=== PATIENT | male | born 1960 | race Caucasian/White ===

== ENCOUNTER 2016-10-15 07:40 | Inpatient (IN) | payer OTHER ==
[~2016-10-15] VITALS: Ht 162.6 cm; Wt 65.3 kg
[~2016-10-15 07:40] MED LIST: CYCL10TA9 PO; NAPR-243 PO
--- OUTSIDE RECORDS SUMMARY | 2016-10-15 07:45 | XMS REPORT ---
Author SHAWNEE Jaimes [facility] eClinicalWorks Address Unknown Phone Unavailable Care Team Providers Care Visual Training Aide Name Role Phone SHAWNEE MANRIQUE CP Unavailable Allergies, Adverse Reactions, Alerts Substance Reaction Event Type N.K.D.A. Info Not Available Non Drug Allergy Problems Problem Type Condition Code Onset Dates Condition Status Problem Dehydration 276.51 Active Problem Screening examination for pulmonary tuberculosis V74.1 Active Problem Physical exam Z00.00 Active Assessment Physical exam Z00.00 Active Medications No Known Medications Procedures Procedure Coding System Code Date Office Visit, Est Pt., Level 4 CPT-4 34801 Jul 05, 2015 Vital Signs Date/Time: Jul 05, 2015 Temperature 98.2 F Weight 154 lbs Height 64 in BMI 26.43 Index Blood Pressure Diastolic 84 mmHg Blood Pressure Systolic 132 mmHg Cardiac Monitoring Heart Rate 80 bpm Results No Known Results Summary Purpose eClinicalWorks Submission
[2016-10-15 07:50] LABS: BASOPHILS % (AUTO) 0 % (0-10); EOSINOPHILS % (AUTO) 0 % (0-10); LYMPHOCYTES # (AUTO) 1.4 X 10^3 (1.0-4.0); LYMPHOCYTES % (AUTO) 13 % (12-44); MEAN CORPUSCULAR HEMOGLOBIN 31 PG (25-34); MEAN CORPUSCULAR HGB CONC 35 G/DL (32-36); MEAN CORPUSCULAR VOLUME 89 FL (80-99); MEAN PLATELET VOLUME 9.5 FL (7.4-10.4); MONOCYTES # (AUTO) 0.8 X 10^3 (0.0-1.0); MONOCYTES % (AUTO) 7 % (0-12); NEUTROPHILS # (AUTO) 8.6 X 10^3 (1.8-7.8); NEUTROPHILS % (AUTO) 80 % (42-75); PLATELET COUNT 272 10^3/uL (130-400); RED BLOOD COUNT 4.48 10^6/uL (4.35-5.85); RED CELL DISTRIBUTION WIDTH 12.2 % (10.0-14.5); WHITE BLOOD COUNT 10.8 10^3/uL (4.3-11.0)
[2016-10-15 07:59] LABS: INR 1.1 (0.8-1.4); PROTHROMBIN TIME PATIENT 13.7 SEC (12.2-14.7)
[2016-10-15] MEDS ORDERED: meTOproloL SUCCINATE 50 MG (TOPROL XL) TAB PO SCH (08:00)
[2016-10-15] MEDS ORDERED: ONDANSETRON 4 MG/2 ML (SDV) Z0FRAN IVP ONE (08:00)
[2016-10-15] MEDS ORDERED: ASPIRIN 81 MG CHEW (CHILDREN'S ASA) PO ONE (08:00)
[2016-10-15] MEDS ORDERED: morphine INJ 5 MG/ML 1 ML VIAL IVP ONE (08:00)
[2016-10-15] MEDS ORDERED: morphine INJ 10 MG/ML 1ML (SYR OR VIAL) IVP ONE (08:00)
[2016-10-15] MEDS ORDERED: NITROGLYCERIN 2% OINT 1 GM UNIT DOSE PACKET TOP ONE (08:00)
--- NOTE | 2016-10-15 08:02 | ED Chest Pain ---
General Chief Complaint: Chest Pain Stated Complaint: CP Nursing Triage Note: ARRIVED VIA EMS FROM WORK WITH COMPLAINTS OF CHEST PAIN AFTER WALKING TO WORK. STATES IT STARTED YESTERDAY AM OFF AND ON BUT WORSE THIS AM. DESCRIBES IT CRUSHING. PT RECIEVED ASA 324MG, X3 NITRO, ET ZOFRAN IN ROUTE TO HOSPITAL. Nursing Sepsis Screen: No Definite Risk Source: patient Exam Limitations: no limitations History of Present Illness Time seen by provider: 07:58 Initial Comments Patient complains of severe chest pain for the past hour onset after walking to work. He had similar pain yesterday that resolved. He is nauseated and has vomited. He is diaphoretic. He is mildly short of air. Allergies and Home Medications Allergies Coded Allergies: No Known Drug Allergies (Unverified , 05/10/12) Review of Systems Constitutional: diaphoresis Respiratory: No Symptoms Reported Cardiovascular: Chest Pain Gastrointestinal: Nausea Vomiting Musculoskeletal: no symptoms reported All Other Systems Reviewed Negative Unless Noted: Yes Past Bwsbkkt-Jhmlxh-Ihqoyx Hx Patient Social History Smoking Status: Never a Smoker Recent Foreign Travel: No Contact w/Someone Who Travel: No Recent Infectious Disease Expo: No Recent Hopitalizations: No Surgeries HX Surgeries: Yes (C5 WITH A BONE GRAFT INTO HIP AND PLACED IN NECK) Respiratory Hx Respiratory Disorders: No Cardiovascular Hx Cardiac Disorders: Yes Cardiac Disorders: Hypertension Neurological Hx Neurological Disorders: No Genitourinary Hx Genitourinary Disorders: No Gastrointestinal Hx Gastrointestinal Disorders: No Musculoskeletal Hx Musculoskeletal Disorders: No Endocrine Hx Endocrine Disorders: Yes (DIET CONTROLLED DIABETES) Cancer Hx Cancer: No Physical Exam Vital Signs Vital Sign - Last 12Hours 10/15/16 10/15/16 07:40 07:54 Temp 98.0 Pulse 104 Resp 18 B/P 116/86 Pulse Ox 96 O2 Delivery Room Air O2 Flow Rate 2 Capillary Refill : Less Than 3 Seconds General Appearance: WD/WN Anxious HEENT: PERRL/EOMI Pharynx Normal Neck: Supple Respiratory: Lungs Clear Normal Breath Sounds Cardiovascular: Regular Rate, Rhythm No Edema Gastrointestinal: Non Tender Soft Extremity: Normal Inspection Normal Range of Motion Neurologic/Psychiatric: Alert Oriented x3 No Motor/Sensory Deficits Skin: Cool Diaphoresis Pallor Progress/Results/Core Measures Results/Orders Lab Results Laboratory Tests Test 10/15/16 07:40 Range/Units Activated Partial Thromboplast Time < 20 L 24-35 SEC Alanine Aminotransferase (ALT/SGPT) 16 0-55 U/L Albumin 4.2 3.2-4.5 G/DL Alkaline Phosphatase 77 40-136 U/L Anion Gap 14 5-14 MMOL/L Aspartate Amino Transf (AST/SGOT) 36 H 5-34 U/L BUN/Creatinine Ratio 10 Basophils # (Auto) 0.0 0.0-0.1 10^3/uL Basophils (%) (Auto) 0 0-10 % Blood Urea Nitrogen 10 7-18 MG/DL Calcium Level 9.1 8.5-10.1 MG/DL Carbon Dioxide Level 23 21-32 MMOL/L Chloride Level 101 98-107 MMOL/L Creatinine 1.02 0.60-1.30 MG/DL Eosinophils # (Auto) 0.0 0.0-0.3 10^3/uL Eosinophils (%) (Auto) 0 0-10 % Estimat Glomerular Filtration Rate > 60 Glucose Level 436 *H 70-105 MG/DL Hematocrit 40 40-54 % Hemoglobin 13.8 13.3-17.7 G/DL INR Comment 1.1 0.8-1.4 Lipase 9 8-78 U/L Lymphocytes # (Auto) 1.4 1.0-4.0 X 10^3 Lymphocytes (%) (Auto) 13 12-44 % Magnesium Level 1.8 1.8-2.4 MG/DL Mean Corpuscular Hemoglobin 31 25-34 PG Mean Corpuscular Hemoglobin Concent 35 32-36 G/DL Mean Corpuscular Volume 89 80-99 FL Mean Platelet Volume 9.5 7.4-10.4 FL Monocytes # (Auto) 0.8 0.0-1.0 X 10^3 Monocytes (%) (Auto) 7 0-12 % Neutrophils # (Auto) 8.6 H 1.8-7.8 X 10^3 Neutrophils (%) (Auto) 80 H 42-75 % Platelet Count 272 130-400 10^3/uL Potassium Level 4.3 3.6-5.0 MMOL/L Prothrombin Time 13.7 12.2-14.7 SEC Red Blood Count 4.48 4.35-5.85 10^6/uL Red Cell Distribution Width 12.2 10.0-14.5 % Sodium Level 138 135-145 MMOL/L Total Bilirubin 1.0 0.1-1.0 MG/DL Total Protein 6.9 6.4-8.2 G/DL Troponin I 1.37 *H <0.30 NG/ML White Blood Count 10.8 4.3-11.0 10^3/uL Labs were reviewed My Orders Orders-CECILIA LORENZ MD Cbc With Automated Diff (10/15/16 07:45) Magnesium (10/15/16 07:45) Chest 1 View, Ap/Pa Only (10/15/16 07:45) Ekg Tracing (10/15/16 07:45) Cardiac Profile 1 (10/15/16 07:45) Comprehensive Metabolic Panel (10/15/16 07:45) Protime With Inr (10/15/16 07:45) Partial Thromboplastin Time (10/15/16 07:45) O2 (10/15/16 07:45) Monitor-Rhythm Ecg Trace Only (10/15/16 07:45) Saline Lock/Iv-Start (10/15/16 07:45) Aspirin Chewable Tablet (Baby Aspirin Ch (10/15/16 08:00) Metoprolol Succinate (Xl) Tab (Toprol Xl (10/15/16 08:00) Nitroglycerin Ointment (Nitrobid Ointme (10/15/16 08:00) Ondansetron Injection (Zofran Injectio (10/15/16 08:00) Morphine Injection (Morphine Injection (10/15/16 08:00) Lipase (10/15/16 07:57) Morphine Injection (Morphine Injection (10/15/16 08:00) Medications Given in ED Current Medications Medications Dose Ordered Sig/Sonny Route Start Time Stop Time Status Last Admin Dose Admin Morphine Sulfate 5 mg ONCE ONCE IVP 10/15/16 08:00 10/15/16 08:01 DC 10/15/16 08:01 5 MG Nitroglycerin 1 inch ONCE ONCE TOP 10/15/16 08:00 10/15/16 08:01 DC 10/15/16 08:04 1 INCH Ondansetron HCl 4 mg ONCE ONCE IVP 10/15/16 08:00 10/15/16 08:01 DC 10/15/16 08:03 4 MG Vital Signs/I&O Vital Sign - Last 12Hours 10/15/16 10/15/16 07:40 07:54 Temp 98.0 Pulse 104 Resp 18 B/P 116/86 Pulse Ox 96 O2 Delivery Room Air Nasal Cannula O2 Flow Rate 2 Blood Pressure Mean: 96 Progress Note : Time: 08:21 Progress Note Symptoms are improved after medications given. Vital signs are stable. to Audiovisual Production Specialist. ECG Initial ECG Rhythm: Normal Sinus Initial ECG Intervals: Normal Initial ECG Impression: Nonspecific Changes Comment There is ST depression laterally consistent with ischemia Departure Communication Time/Spoke to Consulting Physi: 08:00 Communication/Consulting Dr. Perez was consulted after reviewing patient's EKG. He arrived in the emergency department and evaluated the patient. Plan is to take patient to the cardiac catheterization lab. Impression Impression: Primary Impression: Chest pain Qualified Code: R07.9 - Chest pain, unspecified Additional Impression: Non-STEMI (non-ST elevated myocardial infarction) Disposition: 01 HOME, SELF-CARE Condition: Stable Decision to Admit Reason: Admit from ER (General) Decision to Admit/Date: Oct 15, 2016 Time/Decision to Admit Time: 08:21 Departure-Patient Inst. Referrals: NO,LOCAL PHYSICIAN (PCP/Family) Primary Care Physician CECILIA LORENZ MD Oct 15, 2016 08:02
[2016-10-15 08:08] LABS: PARTIAL THROMBOPLASTIN TIME < 20 SEC (24-35)
[2016-10-15 08:12] LABS: ALANINE AMINOTRANSFERASE 16 U/L (0-55); ALBUMIN 4.2 G/DL (3.2-4.5); ANION GAP 14 MMOL/L (5-14); ASPARTATE AMINO TRANSFERASE 36 U/L (5-34); BLOOD UREA NITROGEN 10 MG/DL (7-18); BUN/CREATININE RATIO 10; CALCIUM 9.1 MG/DL (8.5-10.1); CARBON DIOXIDE 23 MMOL/L (21-32); CHLORIDE 101 MMOL/L (98-107); CREATININE SERUM 1.02 MG/DL (0.60-1.30); GFR ESTIMATED > 60; MAGNESIUM 1.8 MG/DL (1.8-2.4); POTASSIUM 4.3 MMOL/L (3.6-5.0); SODIUM 138 MMOL/L (135-145); TOTAL PROTEIN 6.9 G/DL (6.4-8.2)
[2016-10-15 08:16] LABS: GLUCOSE 436 MG/DL (70-105)
[2016-10-15] MEDS ORDERED: NS IV 1000 ML 1,000 ML ONE (08:20)
[2016-10-15] MEDS ORDERED: LIDOCAINE 1% INJ 20 ML (XYLOCAINE) VIAL ONE ×2 (08:20→09:04)
[2016-10-15] MEDS ORDERED: HEParin (CATH LAB) 2,000 ML IV ONE (08:20)
[2016-10-15] MEDS ORDERED: fentaNYL INJECTION 100 MCG/2 ML AMP ONE (08:21)
[2016-10-15] MEDS ORDERED: MIDAZOLAM 5 MG/5 ML (VERSED) VIAL ONE (08:21)
[2016-10-15] MEDS ORDERED: HEParin 1000 UNIT/ML (10ML VIAL) FOR BOLUS ONE (08:21)
[2016-10-15] MEDS ORDERED: NITROGLYCERIN DRIP 25 MG/D5W 0 ML IV ONE (08:21)
[2016-10-15] MEDS ORDERED: EPTIFIBATIDE BOLUS 0 ML IV ONE (08:23)
[2016-10-15 08:26] VITALS: BP 102/77
--- NOTE | 2016-10-15 08:27 | Diagnostic Imaging Report ---
INDICATION: Chest pain. Frontal chest obtained at 8:13 a.m. and compared with 05/10/12. FINDINGS: Heart and mediastinal silhouette are normal in appearance. The lungs are clear. There is no pneumothorax or pleural fluid. IMPRESSION: Negative chest. Dictated by: Dictated on workstation # [id number]
--- NOTE | 2016-10-15 08:39 | Cardiac Procedure Note-CS/ASA ---
Pre-Procedure Note Pre-Op Procedure Note H&P Reviewed The H&P was reviewed, patient examined and no changes noted. Date H&P Reviewed: Oct 15, 2016 Time H&P Reviewed: 08:39 Conscious Sedation Pre-Proced Time Reviewed: 08:39 ASA Class: 3 Airway Mallampati Classification: (white earth appropriate class) I. II. III, IV Lungs Heart ASA score ASA 1: a normal healthy patient ASA 2: a patient with a mild systemic disease (mid diabetes, controlled hypertension, obesity x ASA 3: a patient with a severe systemic disease that limits activity (angina , COPD, prior Myocardial infarction) ASA 4: a patient with an incapacitating disease that is a constant threat to life (CHF, renal failure) ASA 5: a moribund patient not expected to survive 24 hrs. (ruptured aneurysm) ASA 6: a declared brain patient whose organs are being harvested. For emergent operations, add the letter E after the classification Grade 3 Sedation Plan: Analgesia, Amnesia, Plan communicated to team members, Discussed options with patient/fam, Discussed risks with patient/fam Note The patient is an appropriate candidate to undergo the planned procedure, sedation, and anesthesia. The patient immediately re-assessed prior to indication. GILL PETIT MD Oct 15, 2016 08:39
[2016-10-15] MEDS ORDERED: NS IV 1000 ML 1,000 ML IV SCH (08:45)
[2016-10-15] MEDS ORDERED: HEParin (CATH LAB) 1,000 ML IV ONE (08:46)
[2016-10-15] MEDS ORDERED: diphenhydrAMINE 50 MG/ML INJ (BENADRYL) ONE ×2 (09:02→09:04)
[2016-10-15] MEDS ORDERED: methylPREDNISolone 125 MG (Solu-MEDROL) VIAL ONE (09:02)
--- NOTE | 2016-10-15 09:11 | Cardiology History & Physical ---
HPI-Cardiology Cardiology Consultation Date of Consultation 10/15/16 Date of Admission Indication: chest pain HPI 56-year-old gentleman with history of hypertension, untreated. Has been having waxing and waning chest pain for the past few days, yesterday had an episode of chest pain resolved spontaneously, this morning after walking to work he developed sudden onset of chest pain came into the emergency room, noted to have ST depression with Q wave in the anterior leads. Had elevated troponin level. Decided to proceed with emergency cardiac catheterization PMH-Cardiology Surgeries HX Surgeries: Yes (C5 WITH A BONE GRAFT INTO HIP AND PLACED IN NECK) Respiratory Hx Respiratory Disorders: No Cardiovascular Hx Cardiovascular Disorders: Yes Neurological Hx Neurological Disorders: No Genitourinary Hx Genitourinary Disorders: No Gastrointestinal Hx Gastrointestinal Disorders: No Musculoskeletal Hx Musculoskeletal Disorders: No Endocrine Hx Endocrine Disorders: Yes (DIET CONTROLLED DIABETES) Cancer Hx Cancer: No Other PMHx Other PMHx: untreated hypertension Social History Patient Social History Employed/Student: employed Smoking: Never smoker Recent Foreign Travel: No Contact w/other who traveled: No Recent Infectious Disease Expo: No Family Hx Other Strong family history of heart disease ROS-Cardiology Review of Systems General: No Chills, Night Sweats Fatigue MalaiseNo Appetite HEENT: No Head Aches, No Visual Changes, No Eye Pain, No Ear Pain, No Dysphasia , No Sinus Congestion, No Post Nasal Drip, No Sore Throat Pulmonary: DyspneaNo Cough, No Pleuritic Chest Pain Cardiovascular: : Chest PainNo: Edema, Lt Headedness, Orthopnea, Palpitations, Paroxysmal Noc. Dyspnea Gastrointestinal: : Nausea: VomitingNo: Abdominal Pain, Constipation, Diarrhea , Hematochezia, Melena Genitourinary: No Dysuria, No Frequency, No Incontinence, No Hematuria, No Retention Musculoskeletal: No: arm pain, back pain, foot pain, hand pain, leg pain, neck pain, shoulder pain Neurological: : WeaknessNo: Change in speech, Confusion, Incoordination, Numbness, Seizures Home Medications & Allergies Allergies: Coded Allergies: No Known Drug Allergies (Unverified , 05/10/12) Home Medication List Reviewed: Yes Exam-Cardiology Vital Signs Vital Signs Date Time Temp Pulse Resp B/P Pulse Ox O2 Delivery O2 Flow Rate FiO2 10/15/16 08:26 93 18 98 10/15/16 07:54 Nasal Cannula 2 10/15/16 07:40 98.0 116/86 Exam General Appearance: Alert, Oriented X3, Cooperative, No Acute Distress HEENT: Atraumatic, PERRLA Respiratory: Clear to Auscultation, Normal Air Movement Cardiovascular: Regular Rate, Normal S1, Normal S2, No Murmurs, Gallops Abdominal: Normal Bowel Sounds, Soft, No Tenderness, No Hepatosplenomegaly, No Masses Extremities: No Clubbing, No Cyanosis, No Edema, Normal Pulses, No Tenderness/ Swelling Skin: No Rashes, No Breakdown, No Significant Lesion Neuro: Normal Gait, Normal Speech, Strength at 5/5 X4 Ext, Normal Tone, Sensation Intact Psych/Mental Status: Mental Status NL, Mood NL Results Labs Labs Laboratory Tests 10/15/16 07:40: Activated Partial Thromboplast Time < 20L, Alanine Aminotransferase (ALT/SGPT) 16, Albumin 4.2, Alkaline Phosphatase 77, Anion Gap 14, Aspartate Amino Transf ( AST/SGOT) 36H, BUN/Creatinine Ratio 10, Basophils # (Auto) 0.0, Basophils (%) ( Auto) 0, Blood Urea Nitrogen 10, Calcium Level 9.1, Carbon Dioxide Level 23, Chloride Level 101, Creatinine 1.02, Eosinophils # (Auto) 0.0, Eosinophils (%) ( Auto) 0, Estimat Glomerular Filtration Rate > 60, Glucose Level 436*H, Hematocrit 40, Hemoglobin 13.8, INR Comment 1.1, Lipase 9, Lymphocytes # (Auto) 1.4, Lymphocytes (%) (Auto) 13, Magnesium Level 1.8, Mean Corpuscular Hemoglobin 31, Mean Corpuscular Hemoglobin Concent 35, Mean Corpuscular Volume 89, Mean Platelet Volume 9.5, Monocytes # (Auto) 0.8, Monocytes (%) (Auto) 7, Neutrophils # (Auto) 8.6H, Neutrophils (%) (Auto) 80H, Platelet Count 272, Potassium Level 4.3, Prothrombin Time 13.7, Red Blood Count 4.48, Red Cell Distribution Width 12.2, Sodium Level 138, Total Bilirubin 1.0, Total Protein 6.9, Troponin I 1.37*H, White Blood Count 10.8 A/P-Cardiology Admission Diagnosis Non-ST elevation myocardial infarction Coronary artery disease Cardiogenic shock Hypotension Assessment/Plan Non-ST elevation myocardial infarction, emergency cardiac catheterization was planned, I carried out with it showing severe multivessel disease. Congestive heart failure, acute on chronic left ventricle systolic dysfunction, ejection fraction 30 percent, ischemic cardiomyopathy, intra-aortic balloon pump was placed, patient is hypotensive, cannot tolerate beta blockers, AUSTEN inhibitor and/or ARB. Intra-aortic balloon pump is in place. Hypotension, hypotensive shock, cardiogenic shock. Patient has history of hypertension. Questionable hyperlipidemia. Patient will be starting on statin after his bypass surgery Clinical Quality Measures AMI/AHF: ASA po Prior to arrival: Yes (324 MG) GILL PETIT MD Oct 15, 2016 09:11
[2016-10-15] MEDS ORDERED: HEParin DRIP 25000 UNIT/500ML 500 ML IV ONE (09:37)
[2016-10-15] MEDS ORDERED: NITROGLYCERIN DRIP 25 MG/D5W 250 ML IV ONE (09:37)
--- NOTE | 2016-10-16 11:26 | DISCHARGE SUMMARY ---
PROCEDURE PHYSICIAN: GILL PETIT DATE OF PROCEDURE: 10/15/2016 BRIEF HISTORY: Mr. Pena is a 56-year-old gentleman with history of untreated hypertension. He has been having waxing and waning chest pain for the past few days. He was admitted with acute chest pain. He had ST depression in anterolateral leads with Q waves in the anterior lateral leads. He was brought for emergency cardiac catheterization. PROCEDURE NOTE: After explaining the procedure to the patient, all pros and cons were explained. All questions were answered. The patient signed a consent, then he was placed on cardiac catheterization laboratory. The right groin was prepped in a sterile fashion. Local anesthesia of the right groin. 6-Niuean sheath was placed in the right femoral artery. Combination of right and left Aron catheter were used to access the right and left coronary system. Multiple views were obtained. Pigtail catheter advanced to the left ventricular cavity. Pressure was measured. Left ventriculogram was done. Pullback LV to aorta was done. The aortic arch angiogram was done. At that point I removed the pigtail catheter. I proceeded with exchanging the sheath then placed intra-aortic balloon pump. FINDINGS: HEMODYNAMICS: Please see separate sheet for hemodynamics. ANATOMY: 1. Left main coronary artery is bifurcating to left anterior descending and circumflex artery with no obstructive disease. 2. Left anterior descending artery is totally occluded at the midportion, immediately after the origin of the diagonal artery receiving collaterals from the right coronary artery and circumflex system. 3. Left circumflex artery is moderate in size subtotally occluded distally with severe stenosis. 4. Right coronary artery: The right coronary artery is dominant artery subtotally occluded with sluggish flow. Filling the right coronary artery and the LAD system. 5. Left ventriculogram: The left ventriculogram was done in the right anterior oblique position. The left ventricle is dilated, the anterior wall and apex are akinetic. Systolic function is reduced, diffuse left ventricular hypokinesia. Estimated ejection fraction is 25 to 30%. 6. Aortic arch angiogram: Aortic arch evaluation showed hypertensive changes, origin of the innominate artery, left carotid artery and left subclavian artery appeared normal. 7. Intra-aortic balloon pump was placed. No complication noted. CONCLUSION: 1. Severe multivessel disease with totally occluded LAD, getting collateral from a right coronary artery that has subtotal occlusion with sluggish flow. Severe stenosis at the distal circumflex artery. 2. Severely dilated left ventricle with akinesia of the anterior wall, true apex and inferoapical segment with diffuse left ventricular hypokinesia. Estimated ejection fraction 25 to 30%. 3. Successful intra-aortic balloon pump placement. DISCUSSION AND RECOMMENDATION: The patient appeared to be having old anterior wall infarction with severe disease at the right coronary artery. He received aspirin and heparin. Intra-aortic balloon pump was placed. I will arrange for transfer for emergency bypass surgery. FINAL DIAGNOSIS: 1. Coronary artery disease. 2. Non-ST elevation myocardial infarction. 3. Hypotensive shock. 4. Acute on chronic left ventricular systolic dysfunction, congestive heart failure, ischemic cardiomyopathy. 5. 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
--- OUTSIDE RECORDS SUMMARY | 2016-10-16 13:16 | XMS REPORT | Continuity of Care Document ---
Author Author [facility] Organization [facility] Address Unknown Phone Unavailable Care Team Providers Care Sash Assembler Name Role Phone NO, LOCAL PHYSICIAN PCP Unavailable Insurance Providers Payer Name Policy Number Subscriber Name Relationship Self Pay Que Pena 18 Self / Same As Patient Advance Directives Directive Response Recorded Date/Time Advance Directives No 05/10/12 8:14pm Chief Complaint and Reason for Visit Chief Complaint CP Reason for Visit Chest pain Non-STEMI (non-ST elevated myocardial infarction) Problems Active Problems Medical Problem Onset Date Status Chest pain Unknown Acute Non-STEMI (non-ST elevated myocardial infarction) Unknown Acute Medications Past Home Medications Medication Directions Ordered Status Cyclobenzaprine Hcl (Flexeril) 10 Mg Tablet, 1 Each Oral Q8hr Prn 05/10/12 Discontinued Naproxen 500 Mg Tablet, 1 Each Oral Three Times A Day And Prn 05/10/12 Discontinued Social History Social History Problem Response Recorded Date/Time Recent Foreign Travel No 10/15/2016 7:40am Recent Infectious Disease Exposure No 10/15/2016 7:40am Smoking Status Never a Smoker 10/15/2016 8:22am Recent Hopitalizations No 10/15/2016 7:50am Query Response Start Date Stop Date Smoking Status Never a Smoker Hospital Discharge Instructions No hospital discharge instructions. Plan of Care Discharge Date 10/15/16 9:25am Disposition IP-[facility] TO CODE Prescriptions See Medication Section Functional Status No functional status results. Allergies, Adverse Reactions, Alerts No known allergies. Immunizations No immunization records. Vital Signs Acute Vital Signs Vital Response Date/Time Temperature (Fahrenheit) 98 degrees F (97.6 - 99.5) 10/15/2016 7:40am Temperature (Calculated Celsius) 36.6696 degrees C (36.4 - 37.5) 10/15/2016 7 :40am Temperature Source Tympanic 10/15/2016 7:40am Pulse Rate (adult) 93 bpm (60 - 90) 10/15/2016 8:26am Respiratory Rate 18 bpm (12 - 24) 10/15/2016 8:26am O2 Sat by Pulse Oximetry 98 % (88 - 100) 10/15/2016 8:26am Blood Pressure 102/77 mm Hg 10/15/2016 8:26am Blood Pressure Mean 96 mm Hg 10/15/2016 7:40am Pain Numeric Pain Scale 5-Moderate Pain 10/15/2016 8:26am Height (Feet) 5 feet 10/15/2016 7:40am Height (Inches) 4 inches 10/15/2016 7:40am Height (Calculated Centimeters) 162.301546 cm 10/15/2016 7:40am Weight (Pounds) 144 pounds 10/15/2016 7:40am Weight (Calculated Kilograms) 65.033632 kilograms 10/15/2016 7:40am Capillary Refill Capillary Refill Less Than 3 Seconds 10/15/2016 7:40am Height 5 ft 4 in Weight 144 lb Body Mass Index 24.7 kg/m^2 Results Laboratory Results Test Name Result Units Flags Reference Collection Date/Time Result Date/ Time Comments White Blood Count 10.8 10^3/uL 4.3-11.0 10/15/2016 7:40am 10/15/2016 7: 51am Red Blood Count 4.48 10^6/uL 4.35-5.85 10/15/2016 7:40am 10/15/2016 7: 51am Hemoglobin 13.8 G/DL 13.3-17.7 10/15/2016 7:40am 10/15/2016 7:51am Hematocrit 40 % 40-54 10/15/2016 7:40am 10/15/2016 7:51am Mean Corpuscular Volume 89 FL 80-99 10/15/2016 7:40am 10/15/2016 7: 51am Mean Corpuscular Hemoglobin 31 PG 25-34 10/15/2016 7:4010/15/2016 7: 51am Mean Corpuscular Hemoglobin Concent 35 G/DL 32-36 10/15/2016 7:40am 04/2017 7:51am Red Cell Distribution Width 12.2 % 10.0-14.5 10/15/2016 7:40am 2016 7:51am Platelet Count 272 10^3/uL 130-400 10/15/2016 7:40am 10/15/2016 7:51am Mean Platelet Volume 9.5 FL 7.4-10.4 10/15/2016 7:40am 10/15/2016 7: 51am Neutrophils (%) (Auto) 80 % H 42-75 10/15/2016 7:40am 10/15/2016 7:51am Lymphocytes (%) (Auto) 13 % 12-44 10/15/2016 7:40am 10/15/2016 7:51am Monocytes (%) (Auto) 7 % 0-12 10/15/2016 7:40am 10/15/2016 7:51am Eosinophils (%) (Auto) 0 % 0-10 10/15/2016 7:40am 10/15/2016 7:51am Basophils (%) (Auto) 0 % 0-10 10/15/2016 7:40am 10/15/2016 7:51am Neutrophils # (Auto) 8.6 X 10^3 H 1.8-7.8 10/15/2016 7:40am 10/15/2016 7: 51am Lymphocytes # (Auto) 1.4 X 10^3 1.0-4.0 10/15/2016 7:40am 10/15/2016 7: 51am Monocytes # (Auto) 0.8 X 10^3 0.0-1.0 10/15/2016 7:40am 10/15/2016 7: 51am Eosinophils # (Auto) 0.0 10^3/uL 0.0-0.3 10/15/2016 7:40am 10/15/2016 7 :51am Basophils # (Auto) 0.0 10^3/uL 0.0-0.1 10/15/2016 7:40am 10/15/2016 7: 51am Prothrombin Time 13.7 SEC 12.2-14.7 10/15/2016 7:40am 10/15/2016 8: 09am INR Comment 1.1 0.8-1.4 10/15/2016 7:40am 10/15/2016 8:09am INTERPRETIVE DATA SUGGESTED THERAPEUTIC RANGE FOR INR'S: VENOUS THROMBOSIS, PULMONARY EMBOLISM, OR PREVENTION OF SYSTEMIC EMBOLISM (EG. IN ATRIAL FIBRILLATION): 2.0 - 3.0 MECHANICAL PROSTHETIC HEART VALVES: 2.5 - 3.5* *NOTE: INR'S UP TO 4.5 MAY BE NECESSARY IN SELECTED GROUPS OF HIGH RISK PATIENTS. [employer] CONSENSUS CONFERENCE ON ANTITHROMBOTIC THERAPY (2000). Activated Partial Thromboplast Time < 20 SEC L 24-35 10/15/2016 7:40am 8:09am Sodium Level 138 MMOL/L 135-145 10/15/2016 7:40am 10/15/2016 8:17am Potassium Level 4.3 MMOL/L 3.6-5.0 10/15/2016 7:40am 10/15/2016 8:17am Chloride Level 101 MMOL/L 98-107 10/15/2016 7:40am 10/15/2016 8:17am Carbon Dioxide Level 23 MMOL/L 21-32 10/15/2016 7:40am 10/15/2016 8: 17am Anion Gap 14 MMOL/L 5-14 10/15/2016 7:40am 10/15/2016 8:17am Blood Urea Nitrogen 10 MG/DL 7-18 10/15/2016 7:40am 10/15/2016 8:17am Creatinine 1.02 MG/DL 0.60-1.30 10/15/2016 7:40am 10/15/2016 8:17am BUN/Creatinine Ratio 10 10/15/2016 7:40am 10/15/2016 8:17am Estimat Glomerular Filtration Rate > 60 10/15/2016 7:40am 2016 8:17am GFR INTERPRETIVE DATA UNITS FOR ESTIMATED GFR (eGFR): mL/min/1.73 M2 REFERENCE RANGE FOR ESTIMATED GFR (eGFR) eGFR NORMAL eGFR >60 MODERATELY DECREASED eGFR 30-59 SEVERLY DECREASED eGFR 15-29 KIDNEY FAILURE <15 (OR DIALYSIS) Glucose Level 436 MG/DL CH 70-105 10/15/2016 7:40am 10/15/2016 8:17am RESULTS CALLED TO ALO AT 0816. RESULTS READ BACK: YES. Calcium Level 9.1 MG/DL 8.5-10.1 10/15/2016 7:40am 10/15/2016 8:17am Magnesium Level 1.8 MG/DL 1.8-2.4 10/15/2016 7:40am 10/15/2016 8:17am Total Bilirubin 1.0 MG/DL 0.1-1.0 10/15/2016 7:40am 10/15/2016 8:17am Alkaline Phosphatase 77 U/L 40-136 10/15/2016 7:40am 10/15/2016 8:17am Aspartate Amino Transf (AST/SGOT) 36 U/L H 5-34 10/15/2016 7:40am 2016 8:17am Alanine Aminotransferase (ALT/SGPT) 16 U/L 0-55 10/15/2016 7:40am 10/15 8:17am Troponin I 1.37 NG/ML CH <0.30 10/15/2016 7:40am 10/15/2016 8:17am RESULT CALLED TO ALO AT 0816. RESULTS READ BACK: YES. Total Protein 6.9 G/DL 6.4-8.2 10/15/2016 7:40am 10/15/2016 8:17am Albumin 4.2 G/DL 3.2-4.5 10/15/2016 7:40am 10/15/2016 8:17am Lipase 9 U/L 8-78 10/15/2016 7:40am 10/15/2016 8:14am Procedures Procedure Status Date Provider(s) Tracing only of electrocardiogram Completed 10/15/16 CECILIA LORENZ MD Encounters Encounter Location Arrival/Admit Date Discharge/Depart Date Attending Provider Discharged Inpatient [facility] 10/15/16 8:21am 9:25am GILL PETIT MD Recent Diagnosis Chest pain Non-STEMI (non-ST elevated myocardial infarction)
[2016-12-17] MEDS ORDERED: METO-270 PO (10:39)
[2016-12-17] MEDS ORDERED: SUCR1TAB PO (10:39)
[2016-12-17] MEDS ORDERED: PANT40TA3 PO (10:39)
[2016-12-18] MEDS ORDERED: METO-272 PO (10:55)
== END 2016-10-15 09:25 | disposition short-term general hospital (02) | DRG 270 ==
LOC: EDUNIT# 07:40 → ER 07:41 → CATH 08:21 → ICU 08:21
PROVIDERS: ADMIT Internal Medicine Cardiovascular Disease; ATTEND Internal Medicine Cardiovascular Disease
PROC: 4A023N7 Measurement of Cardiac Sampling and Pressure, Left Heart, Percutaneous Approach (ICD-10-PCS; principal; 2016-10-15)
PROC: B2151ZZ Fluoroscopy of Left Heart using Low Osmolar Contrast (ICD-10-PCS; 2016-10-15)
PROC: B2111ZZ Fluoroscopy of Multiple Coronary Arteries using Low Osmolar Contrast (ICD-10-PCS; 2016-10-15)
PROC: B3101ZZ Fluoroscopy of Thoracic Aorta using Low Osmolar Contrast (ICD-10-PCS; 2016-10-15)
PROC: 5A02210 Assistance with Cardiac Output using Balloon Pump, Continuous (ICD-10-PCS; 2016-10-15)
DX: I21.4 Non-ST elevation (NSTEMI) myocardial infarction (principal); I25.10 Atherosclerotic heart disease of native coronary artery without angina pectoris; R57.0 Cardiogenic shock; I50.23 Acute on chronic systolic (congestive) heart failure; I95.9 Hypotension, unspecified; I10 Essential (primary) hypertension; E78.5 Hyperlipidemia, unspecified; I25.5 Ischemic cardiomyopathy
CPT/HCPCS: 33967; 36221; 36415; 71010; 80053; 83690; 83735; 84484; 85025; 85610; 85730; 93005; 93041; 93458; 96374; 96375

== ENCOUNTER 2016-12-13 17:09 | Day surgery (SDC) | payer OTHER ==
[2016-12-13] VITALS (11 sets, daily range): BP systolic 109–150; BP diastolic 76–92
[~2016-12-13] VITALS: Ht 162.6 cm; Wt 59.6 kg
--- NOTE | 2016-12-13 17:22 | ED Chest Pain ---
General Chief Complaint: Chest Pain Stated Complaint: CP Source: patient Exam Limitations: no limitations History of Present Illness Time seen by provider: 17:14 Initial Comments Here by EMS with 2 days of intermittent right-sided chest pain that he describes as a moderate pressure that radiates to his right arm. Associated with nausea. He did have CABG 2 months ago. Denies breathing problems. States that he tried to work through it last night but it got worse or had to go home. He got a little better but worse today. Timing/Duration: getting worse, intermittent, 2-3 days Severity/Quality: moderate, pressure Location: central Radiation: arms (right) Activities at Onset: none Prior CP/Workup: cardiac cath, heart attack ASA po HEAD MILLER: Yes NTG SL HEAD MILLER: No Associated Symptoms: No abdominal pain, No back pain, No diaphoresis, fatigue, nausea/vomiting, No shortness of breath, No weakness Allergies and Home Medications Allergies Coded Allergies: No Known Drug Allergies (Unverified , 05/10/12) Review of Systems Constitutional: see HPI, No chills, No fever EENTM: No Symptoms Reported Respiratory: No Symptoms Reported Cardiovascular: Chest Pain, Denies Edema Gastrointestinal: Denies Abdominal Pain, Nausea, Vomiting Genitourinary: No Symptoms Reported Musculoskeletal: no symptoms reported Skin: no symptoms reported Psychiatric/Neurological: See HPI, Anxiety Endocrine: No Symptoms Reported Hematologic/Lymphatic: No Symptoms Reported All Other Systems Reviewed Negative Unless Noted: Yes Past Querdfm-Jwemwx-Kqxfmu Hx Patient Social History Alcohol Use: Denies Use Recreational Drug Use: No Smoking Status: Never a Smoker Recent Foreign Travel: No Contact w/Someone Who Travel: No Recent Hopitalizations: No Surgeries HX Surgeries: Yes (C5 WITH A BONE GRAFT INTO HIP AND PLACED IN NECK) Surgeries: CABG Respiratory Hx Respiratory Disorders: No Cardiovascular Hx Cardiac Disorders: Yes Cardiac Disorders: Hypertension Neurological Hx Neurological Disorders: No Genitourinary Hx Genitourinary Disorders: No Gastrointestinal Hx Gastrointestinal Disorders: No Musculoskeletal Hx Musculoskeletal Disorders: No Endocrine Hx Endocrine Disorders: Yes (DIET CONTROLLED DIABETES) Endocrine Disorders: Diabetes, Non-Insulin dep Cancer Hx Cancer: No Reviewed Nursing Assessment Reviewed/Agree w Nursing PMH: Yes Physical Exam Vital Signs Vital Sign - Last 12Hours 12/13/16 12/13/16 17:12 17:24 Pulse 106 Resp 17 B/P (MAP) 128/99 Pulse Ox 99 O2 Delivery Room Air O2 Flow Rate 2.00 Capillary Refill : Less Than 3 Seconds General Appearance: WD/WN, Anxious HEENT: PERRL/EOMI, Pharynx Normal Neck: Non Tender, Supple Respiratory: Lungs Clear, Normal Breath Sounds Cardiovascular: Regular Rate, Rhythm, No Murmur Gastrointestinal: Non Tender, Soft Extremity: Non Tender, No Calf Tenderness Neurologic/Psychiatric: Alert, Oriented x3 Skin: Normal Color, Warm/Dry Progress/Results/Core Measures Results/Orders Lab Results Laboratory Tests Test 12/13/16 17:30 Range/Units White Blood Count 9.5 4.3-11.0 10^3/uL Red Blood Count 4.76 4.35-5.85 10^6/uL Hemoglobin 13.8 13.3-17.7 G/DL Hematocrit 40 40-54 % Mean Corpuscular Volume 85 80-99 FL Mean Corpuscular Hemoglobin 29 25-34 PG Mean Corpuscular Hemoglobin Concent 34 32-36 G/DL Red Cell Distribution Width 13.8 10.0-14.5 % Platelet Count 360 130-400 10^3/uL Mean Platelet Volume 9.1 7.4-10.4 FL Neutrophils (%) (Auto) 74 42-75 % Lymphocytes (%) (Auto) 16 12-44 % Monocytes (%) (Auto) 9 0-12 % Eosinophils (%) (Auto) 0 0-10 % Basophils (%) (Auto) 0 0-10 % Neutrophils # (Auto) 7.0 1.8-7.8 X 10^3 Lymphocytes # (Auto) 1.5 1.0-4.0 X 10^3 Monocytes # (Auto) 0.9 0.0-1.0 X 10^3 Eosinophils # (Auto) 0.0 0.0-0.3 10^3/uL Basophils # (Auto) 0.0 0.0-0.1 10^3/uL Prothrombin Time 13.2 12.2-14.7 SEC INR Comment 1.0 0.8-1.4 Activated Partial Thromboplast Time 24 24-35 SEC D-Dimer < 0.27 0.00-0.49 UG/ML Sodium Level 134 L 135-145 MMOL/L Potassium Level 3.9 3.6-5.0 MMOL/L Chloride Level 100 98-107 MMOL/L Carbon Dioxide Level 20 L 21-32 MMOL/L Anion Gap 14 5-14 MMOL/L Blood Urea Nitrogen 12 7-18 MG/DL Creatinine 0.78 0.60-1.30 MG/DL Estimat Glomerular Filtration Rate > 60 BUN/Creatinine Ratio 15 Glucose Level 238 H 70-105 MG/DL Calcium Level 9.5 8.5-10.1 MG/DL Magnesium Level 1.9 1.8-2.4 MG/DL Total Bilirubin 0.9 0.1-1.0 MG/DL Aspartate Amino Transf (AST/SGOT) 17 5-34 U/L Alanine Aminotransferase (ALT/SGPT) 14 0-55 U/L Alkaline Phosphatase 63 40-136 U/L Myoglobin 49.2 10.0-92.0 NG/ML Troponin I < 0.30 <0.30 NG/ML Total Protein 7.8 6.4-8.2 G/DL Albumin 4.7 H 3.2-4.5 G/DL My Orders Orders - DOMINGUEZ ADAN MD Cbc With Automated Diff (12/13/16 17:17) Magnesium (12/13/16 17:17) Chest 1 View, Ap/Pa Only (12/13/16 17:17) Ekg Tracing (12/13/16 17:17) Cardiac Profile 1 (12/13/16 17:17) Comprehensive Metabolic Panel (12/13/16 17:17) Myoglobin Serum (12/13/16 17:17) Protime With Inr (12/13/16 17:17) Partial Thromboplastin Time (12/13/16 17:17) O2 (12/13/16 17:17) Monitor-Rhythm Ecg Trace Only (12/13/16 17:17) Lipid Panel (12/14/16 06:00) Saline Lock/Iv-Start (12/13/16 17:17) Fibrin Degradation Products (12/13/16 17:17) Rx-Nitroglycerin Sl Tabs (Rx-Nitrostat S (12/13/16 17:32) Medications Given in ED Current Medications Medications Dose Ordered Sig/Sonny Route Start Time Stop Time Status Last Admin Dose Admin Nitroglycerin 0.4 mg STK-MED ONCE SL 12/13/16 17:32 12/13/16 17:35 DC 12/13/16 17:36 0.4 MG Vital Signs/I&O Vital Sign - Last 12Hours 12/13/16 12/13/16 12/13/16 17:12 17:12 17:24 Pulse 106 Resp 17 B/P (MAP) 128/99 Pulse Ox 99 100 O2 Delivery Room Air Nasal Cannula O2 Flow Rate 2.00 Progress Note : Progress Note Seen and evaluated. IV by EMS. ASA 324 mg by mouth by EMS. Zofran 2 mg IV by EMS for nausea. Labs, EKG and chest x-ray ordered. Monitor patient. 1804: Patient did improve after 2 nitroglycerin and is currently resolved. He feels better. Discussed case with Dr. Coronado. We will admit patient for observation. Consult Dr. Perez. 180: Discussed with Dr. Perez and he agrees to consult. ECG Initial ECG Impression Date: Dec 13, 2016 Initial ECG Impression Time: 17:21 Initial ECG Rate: 103 Initial ECG Rhythm: S.Tach Comment Sinus tachycardia with extensive anterior infarct of undetermined age. This is a change from 10/15/16. He has had interval coronary artery bypass grafting due to NV previously. Diagnostic Imaging Diagonstic Imaging: Xray Plain Films/CT/US/NM/MRI: chest Comments [facility]IA [facility], [facility]. [place], [place] NAME: MITZI JACOBSON [facility] REC#: [id number] PT STATUS: REG ER : 1960 PHYSICIAN: DOMINGUEZ ADAN MD ADMIT DATE: 12/13/16/ER Draft Date of Exam:12/13/16 CHEST 1 VIEW, AP/PA ONLY INDICATION: Chest pain and lightheadedness. EXAM: Frontal chest obtained at 5:31 hours p.m. COMPARISON: 10/15/2016 FINDINGS: The patient has had a sternotomy. The heart is normal in size. The lungs are clear. There is no pneumothorax or pleural fluid. IMPRESSION: No acute process in the chest. Evidence of previous sternotomy. Dictated on workstation # [id number] Dict: 12/13/16 1741 Trans: 12/13/16 1745 [facility] [id number] Interpreted by: CARO HCIKS MD Electronically signed by: Departure Communication Time/Spoke to Admitting Phy: 18:04 Time/Spoke to Consulting Physi: 18:07 Impression Impression: Primary Impression: Chest pain Qualified Codes: R07.9 - Chest pain, unspecified Disposition: 09 ADMITTED INPATIENT Condition: Stable Decision to Admit Reason: Admit from ER (General) Decision to Admit/Date: Dec 13, 2016 Time/Decision to Admit Time: 18:04 Departure-Patient Inst. Referrals: NO,LOCAL PHYSICIAN (PCP/Family) Primary Care Physician DOMINGUEZ ADAN MD Dec 13, 2016 17:22
[2016-12-13] MEDS ORDERED: RX-NITROGLYCERIN 0.4 MG TAB BTL 25'S SL ONE (17:32)
[2016-12-13 17:37] LABS: BASOPHILS % (AUTO) 0 % (0-10); EOSINOPHILS % (AUTO) 0 % (0-10); LYMPHOCYTES # (AUTO) 1.5 X 10^3 (1.0-4.0); LYMPHOCYTES % (AUTO) 16 % (12-44); MEAN CORPUSCULAR HEMOGLOBIN 29 PG (25-34); MEAN CORPUSCULAR HGB CONC 34 G/DL (32-36); MEAN CORPUSCULAR VOLUME 85 FL (80-99); MEAN PLATELET VOLUME 9.1 FL (7.4-10.4); MONOCYTES # (AUTO) 0.9 X 10^3 (0.0-1.0); MONOCYTES % (AUTO) 9 % (0-12); NEUTROPHILS % (AUTO) 74 % (42-75); PLATELET COUNT 360 10^3/uL (130-400); RED BLOOD COUNT 4.76 10^6/uL (4.35-5.85); RED CELL DISTRIBUTION WIDTH 13.8 % (10.0-14.5); WHITE BLOOD COUNT 9.5 10^3/uL (4.3-11.0)
[2016-12-13 17:46] LABS: PROTHROMBIN TIME PATIENT 13.2 SEC (12.2-14.7)
--- NOTE | 2016-12-13 17:46 | Diagnostic Imaging Report ---
INDICATION: Chest pain and lightheadedness. EXAM: Frontal chest obtained at 5:31 hours p.m. COMPARISON: 10/15/2016 FINDINGS: The patient has had a sternotomy. The heart is normal in size. The lungs are clear. There is no pneumothorax or pleural fluid. IMPRESSION: No acute process in the chest. Evidence of previous sternotomy. Dictated by: Dictated on workstation # [id number]
[2016-12-13 17:58] LABS: ALANINE AMINOTRANSFERASE 14 U/L (0-55); ALBUMIN 4.7 G/DL (3.2-4.5); ANION GAP 14 MMOL/L (5-14); ASPARTATE AMINO TRANSFERASE 17 U/L (5-34); BILIRUBIN,TOTAL 0.9 MG/DL (0.1-1.0); BLOOD UREA NITROGEN 12 MG/DL (7-18); BUN/CREATININE RATIO 15; CALCIUM 9.5 MG/DL (8.5-10.1); CARBON DIOXIDE 20 MMOL/L (21-32); CHLORIDE 100 MMOL/L (98-107); CREATININE SERUM 0.78 MG/DL (0.60-1.30); GFR ESTIMATED > 60; GLUCOSE 238 MG/DL (70-105); MAGNESIUM 1.9 MG/DL (1.8-2.4); POTASSIUM 3.9 MMOL/L (3.6-5.0); SODIUM 134 MMOL/L (135-145); TOTAL PROTEIN 7.8 G/DL (6.4-8.2)
[2016-12-13 18:05] LABS: MYOGLOBIN SERUM 49.2 NG/ML (10.0-92.0)
[2016-12-13] MEDS ORDERED: ONDANSETRON 4 MG/2 ML (SDV) Z0FRAN ONE (18:46)
[2016-12-13] MEDS ORDERED: NS IV 1000 ML 1,000 ML ONE (20:17)
[2016-12-13] MEDS ORDERED: ZOLPIDEM 5 MG (AMBIEN) TAB ONE (22:02)
[2016-12-13] MEDS: ZOLPIDEM 5 MG (AMBIEN) TAB PO SCH (22:09)
[2016-12-13] MEDS ORDERED: SITA1TAB2 PO (22:14)
[2016-12-13] MEDS ORDERED: NITROGLYCERIN SUBLINGUAL 0.4 MG TAB (NITROSTAT) SL PRN (22:15)
[2016-12-13] MEDS ORDERED: morphine INJ 4 MG/ML 1 ML (VIAL/SYRINGE) IV PRN (22:15)
[2016-12-13] MEDS ORDERED: TRAM50TA2 PO (22:16)
[2016-12-13] MEDS ORDERED: PREG50CA2 PO (22:16)
[2016-12-13 23:45] LABS: CREATINE KINASE 50 U/L (30-200)
[2016-12-13 23:52] LABS: MYOGLOBIN SERUM 28.2 NG/ML (10.0-92.0); TROPONIN I < 0.30 NG/ML (<0.30)
[2016-12-14 00:03] VITALS: BP 108/64
[2016-12-14 04:00] VITALS: BP 120/79
[2016-12-14 04:55] LABS: BASOPHILS % (AUTO) 0 % (0-10); EOSINOPHILS # (AUTO) 0.1 10^3/uL (0.0-0.3); EOSINOPHILS % (AUTO) 1 % (0-10); LYMPHOCYTES # (AUTO) 2.3 X 10^3 (1.0-4.0); LYMPHOCYTES % (AUTO) 27 % (12-44); MEAN CORPUSCULAR HEMOGLOBIN 29 PG (25-34); MEAN CORPUSCULAR HGB CONC 33 G/DL (32-36); MEAN CORPUSCULAR VOLUME 86 FL (80-99); MEAN PLATELET VOLUME 8.9 FL (7.4-10.4); MONOCYTES # (AUTO) 0.9 X 10^3 (0.0-1.0); MONOCYTES % (AUTO) 11 % (0-12); NEUTROPHILS # (AUTO) 5.3 X 10^3 (1.8-7.8); NEUTROPHILS % (AUTO) 62 % (42-75); PLATELET COUNT 306 10^3/uL (130-400); RED BLOOD COUNT 4.19 10^6/uL (4.35-5.85); WHITE BLOOD COUNT 8.6 10^3/uL (4.3-11.0)
[2016-12-14 05:18] LABS: ALANINE AMINOTRANSFERASE 10 U/L (0-55); ALBUMIN 3.6 G/DL (3.2-4.5); ANION GAP 9 MMOL/L (5-14); ASPARTATE AMINO TRANSFERASE 12 U/L (5-34); BILIRUBIN,TOTAL 0.6 MG/DL (0.1-1.0); BLOOD UREA NITROGEN 7 MG/DL (7-18); BUN/CREATININE RATIO 10; CALCIUM 8.7 MG/DL (8.5-10.1); CARBON DIOXIDE 22 MMOL/L (21-32); CHLORIDE 108 MMOL/L (98-107); CHOLESTEROL 99 MG/DL (< 200); DIRECT LDL 46 MG/DL (1-129); GFR ESTIMATED > 60; GLUCOSE 170 MG/DL (70-105); SODIUM 139 MMOL/L (135-145); TRIGLYCERIDES 81 MG/DL (<150); VLDL CHOLESTEROL 16 MG/DL (5-40)
[2016-12-14] MEDS: inSUlin (REGULAR) HUMAN 1 UNIT/0.01 ML (CHARGE PER UNIT) SC SCH ×4 (05:44→20:59)
[2016-12-14 08:00] VITALS: BP 143/87
[2016-12-14] MEDS ORDERED: ASPIRIN E.C. 325 MG (ECOTRIN) TABLET PO SCH (09:00)
--- NOTE | 2016-12-14 09:37 | Consultation-Cardiology ---
HPI-Cardiology Cardiology Consultation Date of Consultation 12/14/16 Date of Admission Indication: chest pain HPI 56 years old gentleman with history of coronary artery disease, had acute myocardial infarction in October 2016, transferred to [facility] underwent CABG [address] Ham, did not follow-up with me. Was in his usual state of health until the last 2 days where he started having recurrent nausea and vomiting and chest pain described it as dull in nature on the right side of his chest. Responded to nitroglycerin, denied any palpitation, syncope or near syncopal episodes. Denied any claudications. Home Medications & Allergies Allergies: Coded Allergies: No Known Drug Allergies (Unverified , 05/10/12) Home Medication List Reviewed: Yes MLL-Qxlekg-Nrdobx Hx Patient Social History Marital Status: Alcohol Use: Denies Use Recreational Drug Use: No Smoking Status: Never a Smoker Recent Foreign Travel: No Recent Infectious Disease Expo: No Recent Hopitalizations: Yes (CABG in ) Physical Abuse Screen: No Sexual Abuse: No Immunizations Up To Date Tetanus Booster (TDap): More than 5yrs Date of Influenza Vaccine: Jun 07, 2016 Past Medical History past medical history as discussed below Family Medical History Family History: Diabetes mellitus 19 FATHER 19 MOTHER FH: CHF (congestive heart failure) 19 FATHER Constitutional: no symptoms reported, see HPI EENTM: no symptoms reported, see HPI Respiratory: see HPI, No cough, dyspnea on exertion, No hemoptysis, No orthopnea, No phlegm, No short of breath, No stridor, No wheezing, No other Cardiovascular: see HPI, chest pain, edema, Hx of Intervention, palpitations, syncope, vascular heart diseas, other Gastrointestinal: see HPI, nausea, vomiting Genitourinary: no symptoms reported, see HPI Musculoskeletal: no symptoms reported, see HPI Skin: no symptoms reported, see HPI Psychiatric/Neurological: No Symptoms Reported, See HPI Reviewed Test Results Reviewed Test Results Lab Laboratory Tests Test 12/13/16 17:30 12/13/16 21:53 12/13/16 23:25 12/14/16 04:42 Range/Units White Blood Count 9.5 8.6 4.3-11.0 10^3/uL Red Blood Count 4.76 4.19 L 4.35-5.85 10^6/uL Hemoglobin 13.8 12.1 L 13.3-17.7 G/DL Hematocrit 40 36 L 40-54 % Mean Corpuscular Volume 85 86 80-99 FL Mean Corpuscular Hemoglobin 29 29 25-34 PG Mean Corpuscular Hemoglobin Concent 34 33 32-36 G/DL Red Cell Distribution Width 13.8 14.0 10.0-14.5 % Platelet Count 360 306 130-400 10^3/uL Mean Platelet Volume 9.1 8.9 7.4-10.4 FL Neutrophils (%) (Auto) 74 62 42-75 % Lymphocytes (%) (Auto) 16 27 12-44 % Monocytes (%) (Auto) 9 11 0-12 % Eosinophils (%) (Auto) 0 1 0-10 % Basophils (%) (Auto) 0 0 0-10 % Neutrophils # (Auto) 7.0 5.3 1.8-7.8 X 10^3 Lymphocytes # (Auto) 1.5 2.3 1.0-4.0 X 10^3 Monocytes # (Auto) 0.9 0.9 0.0-1.0 X 10^3 Eosinophils # (Auto) 0.0 0.1 0.0-0.3 10^3/uL Basophils # (Auto) 0.0 0.0 0.0-0.1 10^3/uL Prothrombin Time 13.2 12.2-14.7 SEC INR Comment 1.0 0.8-1.4 Activated Partial Thromboplast Time 24 24-35 SEC D-Dimer < 0.27 0.00-0.49 UG/ML Sodium Level 134 L 139 135-145 MMOL/L Potassium Level 3.9 4.0 3.6-5.0 MMOL/L Chloride Level 100 108 H 98-107 MMOL/L Carbon Dioxide Level 20 L 22 21-32 MMOL/L Anion Gap 14 9 5-14 MMOL/L Blood Urea Nitrogen 12 7 7-18 MG/DL Creatinine 0.78 0.70 0.60-1.30 MG/DL Estimat Glomerular Filtration Rate > 60 > 60 BUN/Creatinine Ratio 15 10 Glucose Level 238 H 170 H 70-105 MG/DL Calcium Level 9.5 8.7 8.5-10.1 MG/DL Magnesium Level 1.9 1.8-2.4 MG/DL Total Bilirubin 0.9 0.6 0.1-1.0 MG/DL Aspartate Amino Transf (AST/SGOT) 17 12 5-34 U/L Alanine Aminotransferase (ALT/SGPT) 14 10 0-55 U/L Alkaline Phosphatase 63 46 40-136 U/L Myoglobin 49.2 28.2 10.0-92.0 NG/ML Troponin I < 0.30 < 0.30 <0.30 NG/ML Total Protein 7.8 6.0 L 6.4-8.2 G/DL Albumin 4.7 H 3.6 3.2-4.5 G/DL Glucometer 211 H 70-110 MG/DL Total Creatine Kinase 50 30-200 U/L Triglycerides Level 81 <150 MG/DL Cholesterol Level 99 < 200 MG/DL LDL Cholesterol Direct 46 1-129 MG/DL VLDL Cholesterol 16 5-40 MG/DL HDL Cholesterol 36 L 40-60 MG/DL Test 12/14/16 09:13 Range/Units Glucometer 265 H 70-110 MG/DL Physical Exam Vital Signs Vital Sign - Last 12Hours 12/13/16 12/13/16 17:12 17:24 Pulse 106 Resp 17 B/P (MAP) 128/99 Pulse Ox 99 O2 Delivery Room Air O2 Flow Rate 2.00 Capillary Refill : Less Than 3 Seconds General Appearance: WD/WN, Mild Distress Eyes: Bilateral Eye EOMI, Bilateral Eye Normal Inspection, Bilateral Eye PERRL HEENT: PERRL/EOMI, TMs Normal, Normal ENT Inspection, Pharynx Normal Neck: Full Range of Motion, Normal Inspection, Non Tender, Supple Respiratory: Chest Non Tender, Lungs Clear, Normal Breath Sounds, No Accessory Muscle Use, No Respiratory Distress Cardiovascular: Regular Rate, Rhythm, No Edema, No Gallop, No JVD, No Murmur, Normal Peripheral Pulses Gastrointestinal: Normal Bowel Sounds, No Organomegaly, No Pulsatile Mass, Non Tender, Soft Back: Normal Inspection, No CVA Tenderness, No Vertebral Tenderness Extremity: Normal Capillary Refill, Normal Inspection, Normal Range of Motion, Non Tender, No Calf Tenderness, No Pedal Edema Neurologic/Psychiatric: Alert, Oriented x3, No Motor/Sensory Deficits, Normal Mood/Affect Skin: Normal Color, Warm/Dry Lymphatic: No Adenopathy A/P-Cardiology Admission Diagnosis Anterior chest wall pain Coronary artery disease Congestive heart failure Hypertension Assessment/Plan Chest pain, nonspecific etiology, atypical in presentation, recent myocardial infarction and bypass surgery. Planning to evaluate Lexiscan stress test. Coronary artery disease, status post acute myocardial infarction in October 2016, had CABG [address] Ham using MIRANDA to LAD, vein graft to diagonal artery, vein graft to posterior marginal and vein graft to the right PDA. EKG showed QS in the anterior leads. Planning to proceed with Lexiscan stress test. Congestive heart failure, chronic left ventricular systolic dysfunction, ischemic in nature, ejection fraction 30 percent during cardiac catheterization in October, I will reevaluate 2-D echocardiogram. Hypertension, monitor blood pressure Hyperlipidemia. Evaluate lipid profile, reporting that he has been taking Lipitor. I'll obtain his accurate medication list Diabetes mellitus, followed and managed by primary care physician. Clinical Quality Measures AMI/AHF: ASA po Prior to arrival: Yes DVT/VTE Risk/Contraindication: Risk Factor Score Per Nursin RFS Level Per Nursing on Admit: 2=Moderate GILL PETIT MD Dec 14, 2016 09:37
[2016-12-14] MEDS ORDERED: lisINopril 5 MG (PRINIVIL) TABLET PO NR (09:45)
[2016-12-14] MEDS ORDERED: PANTOPRAZOLE 40 MG (PROTONIX) TAB PO NR (09:45)
[2016-12-14 11:27] VITALS: BP 133/88
[2016-12-14] MEDS ORDERED: ATOR80TA64 PO (13:00)
[2016-12-14] MEDS ORDERED: INSU300I SQ (13:00)
[2016-12-14] MEDS ORDERED: CARV12.53 PO (13:00)
[2016-12-14] MEDS ORDERED: NITR12SP5 TL (13:00)
[2016-12-14] MEDS ORDERED: CLOP75TA28 PO (13:00)
[2016-12-14] MEDS ORDERED: ASPI-586 PO (13:02)
[2016-12-14] MEDS ORDERED: LISI-556 PO (13:02)
--- NOTE | 2016-12-14 13:09 | History & Physicial (CHS) ---
HPI History of Present Illness: Patient came to ER after initially starting with nausea and vomiting overnight. He stayed home from work on Thursday and continued to hav vomiting and inability to keep down even water. Thursday afternoon he started to note some right sided chest pain and called EMS. He had a recent CABG. He is feeling somewhat better today, had some cream of wheat for breakfast which has stayed down. He denies fever, diarrhea. He did have some abdominal cramping along with the noted issues. Attending Physician Tory Coronado MD PCP [place],[facility] Date of Admission Dec 13, 2016 at 18:14 Home Medications Home Medications Reviewed patient Home Medication Reconciliation Form Allergies Coded Allergies: No Known Drug Allergies (Unverified , 05/10/12) FIO-Daftho-Iuqkxf Hx Patient Social History Marrital Status: Alcohol Use: Denies Use Recreational Drug Use: No Smoking Status: Never a Smoker Recent Foreign Travel: No Contact w/other who traveled: No Recent Hopitalizations: Yes (CABG in ) Recent Infectious Disease Expo: No Physical Abuse Screen: No Sexual Abuse: No Immunizations Up To Date Tetanus Booster (TDap): More than 5yrs Date of Influenza Vaccine: Jun 07, 2016 Past Medical History PMHx: DMII CAD s/p CABG HLD PSurgHx: CABG Laminectomy and discectomy Family Medical History Significant Family History: Heart Disease, CAD Over 55 Years Old, Diabetes Review of Systems (CHC) Constitutional: dizziness, No fever Respiratory: No cough, No short of breath Cardiovascular: see HPI Gastrointestinal: No abdominal pain, No diarrhea, nausea, vomiting Genitourinary: No dysuria Musculoskeletal: No joint pain Skin: No rash Reviewed Test Results Reviewed Test Results Lab Laboratory Tests Test 12/13/16 17:30 12/13/16 21:53 12/13/16 23:25 12/14/16 04:42 Range/Units White Blood Count 9.5 8.6 4.3-11.0 10^3/uL Red Blood Count 4.76 4.19 L 4.35-5.85 10^6/uL Hemoglobin 13.8 12.1 L 13.3-17.7 G/DL Hematocrit 40 36 L 40-54 % Mean Corpuscular Volume 85 86 80-99 FL Mean Corpuscular Hemoglobin 29 29 25-34 PG Mean Corpuscular Hemoglobin Concent 34 33 32-36 G/DL Red Cell Distribution Width 13.8 14.0 10.0-14.5 % Platelet Count 360 306 130-400 10^3/uL Mean Platelet Volume 9.1 8.9 7.4-10.4 FL Neutrophils (%) (Auto) 74 62 42-75 % Lymphocytes (%) (Auto) 16 27 12-44 % Monocytes (%) (Auto) 9 11 0-12 % Eosinophils (%) (Auto) 0 1 0-10 % Basophils (%) (Auto) 0 0 0-10 % Neutrophils # (Auto) 7.0 5.3 1.8-7.8 X 10^3 Lymphocytes # (Auto) 1.5 2.3 1.0-4.0 X 10^3 Monocytes # (Auto) 0.9 0.9 0.0-1.0 X 10^3 Eosinophils # (Auto) 0.0 0.1 0.0-0.3 10^3/uL Basophils # (Auto) 0.0 0.0 0.0-0.1 10^3/uL Prothrombin Time 13.2 12.2-14.7 SEC INR Comment 1.0 0.8-1.4 Activated Partial Thromboplast Time 24 24-35 SEC D-Dimer < 0.27 0.00-0.49 UG/ML Sodium Level 134 L 139 135-145 MMOL/L Potassium Level 3.9 4.0 3.6-5.0 MMOL/L Chloride Level 100 108 H 98-107 MMOL/L Carbon Dioxide Level 20 L 22 21-32 MMOL/L Anion Gap 14 9 5-14 MMOL/L Blood Urea Nitrogen 12 7 7-18 MG/DL Creatinine 0.78 0.70 0.60-1.30 MG/DL Estimat Glomerular Filtration Rate > 60 > 60 BUN/Creatinine Ratio 15 10 Glucose Level 238 H 170 H 70-105 MG/DL Calcium Level 9.5 8.7 8.5-10.1 MG/DL Magnesium Level 1.9 1.8-2.4 MG/DL Total Bilirubin 0.9 0.6 0.1-1.0 MG/DL Aspartate Amino Transf (AST/SGOT) 17 12 5-34 U/L Alanine Aminotransferase (ALT/SGPT) 14 10 0-55 U/L Alkaline Phosphatase 63 46 40-136 U/L Myoglobin 49.2 28.2 10.0-92.0 NG/ML Troponin I < 0.30 < 0.30 <0.30 NG/ML Total Protein 7.8 6.0 L 6.4-8.2 G/DL Albumin 4.7 H 3.6 3.2-4.5 G/DL Glucometer 211 H 70-110 MG/DL Total Creatine Kinase 50 30-200 U/L Triglycerides Level 81 <150 MG/DL Cholesterol Level 99 < 200 MG/DL LDL Cholesterol Direct 46 1-129 MG/DL VLDL Cholesterol 16 5-40 MG/DL HDL Cholesterol 36 L 40-60 MG/DL Test 12/14/16 09:13 Range/Units Glucometer 265 H 70-110 MG/DL Radiology CXR 12/13: no acute changes Physical Exam-(CHC) Physical Exam Vital Signs VS - Last 72 Hours, by Label 12/13/16 12/13/16 12/13/16 12/13/16 17:12 17:12 17:24 18:39 Pulse 106 98 Resp 17 18 B/P (MAP) 128/99 132/92 Pulse Ox 99 100 100 O2 Delivery Room Air Nasal Cannula Nasal Cannula O2 Flow Rate 2.00 2.00 12/13/16 12/13/16 12/13/16 12/13/16 18:41 18:50 19:22 19:35 Temp 99.0 Pulse 106 104 99 94 Resp 20 20 18 20 B/P (MAP) 123/89 109/ 135/84 Pulse Ox 100 100 100 99 O2 Delivery Nasal Cannula Nasal Cannula Room Air O2 Flow Rate 2.00 2.00 12/13/16 12/13/16 12/13/16 12/13/16 19:35 19:50 20:10 20:27 Pulse 93 101 95 Resp 20 20 20 B/P (MAP) 125/76 148/80 133/82 Pulse Ox 99 99 100 100 O2 Delivery Room Air Room Air Room Air O2 Flow Rate 2.00 12/13/16 12/13/16 12/13/16 12/13/16 20:40 20:42 20:57 22:00 Pulse 95 96 97 105 Resp 20 20 18 B/P (MAP) 134/82 150/85 131/81 Pulse Ox 100 100 99 O2 Delivery Room Air Room Air Room Air 4/04/2312/14/16 12/14/16 12/14/16 23:00 00:03 01:00 04:00 Temp 97.4 98.2 Pulse 95 104 103 95 Resp 18 18 16 B/P (MAP) 126/79 108/64 120/79 Pulse Ox 100 98 100 O2 Delivery Room Air Nasal Cannula Nasal Cannula O2 Flow Rate 2.00 2.00 12/14/16 12/14/16 12/14/16 12/14/16 07:00 08:00 08:00 11:27 Temp 96.0 95.0 Pulse 104 101 100 Resp 18 22 B/P (MAP) 143/87 133/88 Pulse Ox 99 99 99 O2 Delivery Nasal Cannula Nasal Cannula Nasal Cannula O2 Flow Rate 1.50 2.00 1.50 Capillary Refill : Less Than 3 Seconds General Appearance: WD/WN, no apparent distress Respiratory: lungs clear, normal breath sounds Cardiovascular: regular rate, rhythm, no murmur Gastrointestinal: normal bowel sounds, non tender, soft Extremities: no pedal edema Neurologic/Psychiatric: alert, normal mood/affect, oriented x 3 Skin: normal color, warm/dry Assessment/Plan Assessment/Plan Admission Dx 1. Nausea and vomiting 2. Chest pain with recent CABG 3. DMII Plan 1. Nausea and vomiting- possible viral gastritis -IVF, ondansetron, CLD advance as tolerated 2. Chest pain with recent CABG- Cardiology consulted, troponins negative, no acute EKG changes -Metoprolol XL started by Dr. Perez, will hold home carvedilol, continue home lisinopril, clopidogrel, aspirin and atorvastatin -Stress test tomorrow per Dr. Perez 3. DMII- resume home Janumet and Toujeo -SSI as needed 4. DVT ppx- SCDS, enoxaparin Diagnosis/Problems: Clinical Quality Measures AMI/AHF: ASA po Prior to arrival: Yes DVT/VTE Risk/Contraindication: Risk Factor Score Per Nursin RFS Level Per Nursing on Admit: 2=Moderate Copy Copies To 1: EILEEN Posada BETHANY N MD Dec 14, 2016 13:09
[2016-12-14] MEDS: ENOXAPARIN 40 MG/0.4 ML (LOVENOX) SYR SC SCH (15:02)
[2016-12-14 16:00] VITALS: BP 106/67
[2016-12-14] MEDS: sitaGLIPtin 50 MG (JANUVIA) TAB PO SCH (17:22)
[2016-12-14] MEDS: metFORMIN 500 MG (GLUCOPHAGE) TAB PO SCH (17:22)
[2016-12-14 20:32] VITALS: BP 115/72
[2016-12-14] MEDS: PREGABALIN 50 MG (LYRICA) CAP PO SCH (20:44)
[2016-12-14] MEDS: ZOLPIDEM 5 MG (AMBIEN) TAB PO SCH (20:59)
[2016-12-14] MEDS ORDERED: NON-FORMULARY MEDICATION 1 EA EA (Sitagliptin Phos/Metformin HCl (Janumet 50-500 mg Tablet PO SCH (21:00)
[2016-12-14] MEDS ORDERED: ACETAMINOPHEN 500 MG TAB (TYLENOL) PO PRN (21:00)
[2016-12-15] VITALS (19 sets, daily range): BP systolic 85–146; BP diastolic 60–96
[2016-12-15 05:24] LABS: MEAN PLATELET VOLUME 9.1 FL (7.4-10.4); RED BLOOD COUNT 4.19 10^6/uL (4.35-5.85); WHITE BLOOD COUNT 8.6 10^3/uL (4.3-11.0)
[2016-12-15 05:46] LABS: ALANINE AMINOTRANSFERASE 11 U/L (0-55); ALBUMIN 3.5 G/DL (3.2-4.5); ANION GAP 9 MMOL/L (5-14); ASPARTATE AMINO TRANSFERASE 14 U/L (5-34); BILIRUBIN,TOTAL 0.5 MG/DL (0.1-1.0); BLOOD UREA NITROGEN 7 MG/DL (7-18); BUN/CREATININE RATIO 10; CALCIUM 8.7 MG/DL (8.5-10.1); CARBON DIOXIDE 23 MMOL/L (21-32); CHLORIDE 106 MMOL/L (98-107); CHOLESTEROL 95 MG/DL (< 200); CREATININE SERUM 0.71 MG/DL (0.60-1.30); DIRECT LDL 43 MG/DL (1-129); GFR ESTIMATED > 60; GLUCOSE 153 MG/DL (70-105); POTASSIUM 3.7 MMOL/L (3.6-5.0); SODIUM 138 MMOL/L (135-145); TOTAL PROTEIN 5.8 G/DL (6.4-8.2); TRIGLYCERIDES 98 MG/DL (<150); VLDL CHOLESTEROL 20 MG/DL (5-40)
[2016-12-15] MEDS: inSUlin (REGULAR) HUMAN 1 UNIT/0.01 ML (CHARGE PER UNIT) SC SCH ×4 (06:00→20:28)
[2016-12-15] MEDS: metFORMIN 500 MG (GLUCOPHAGE) TAB PO SCH (06:24)
[2016-12-15] MEDS: PANTOPRAZOLE 40 MG (PROTONIX) TAB PO SCH (06:24)
[2016-12-15] MEDS: sitaGLIPtin 50 MG (JANUVIA) TAB PO SCH (06:25)
[2016-12-15] MEDS ORDERED: CATHETER FLUSH 10 ML SYR IV PRN (07:30)
[2016-12-15] MEDS ORDERED: REGADENOSON 0.4 MG/5 ML SYR (LEXISCAN) IV ONE ×2 (09:00→09:15)
--- NOTE | 2016-12-15 09:39 | Cardiology Progress Note ---
Subjective Subjective/Events-last exam Patient in the heart center for stress test. Denies any active CP. Review of Systems General: No Night Sweats, No Fatigue, No Malaise HEENT: No Visual Changes, No Dysphasia, No Sore Throat Pulmonary: No Dyspnea, No Cough Cardiovascular: No: Chest Pain, Orthopnea, Palpitations Gastrointestinal: No: Abdominal Pain, Nausea, Vomiting Genitourinary: No Dysuria, No Frequency Musculoskeletal: No: back pain, neck pain Neurological: No: Change in speech, Numbness, Weakness Objective-Cardiology Exam Last Set of Vital Signs Vital Signs 12/14/16 12/15/16 12/15/16 20:32 03:21 09:11 Temp 96.8 Pulse 114 Resp 18 B/P (MAP) 112/74 Pulse Ox 98 O2 Delivery Room Air O2 Flow Rate 2.00 Capillary Refill : Less Than 3 Seconds I&O Intake and Output 12/15/16 00:00 Intake Total 2200 ml Output Total 3925 ml Balance -1725 ml Intake Oral 2200 ml Output Urine Total 3925 ml General: Alert, Oriented X3, Cooperative HEENT: Atraumatic, PERRLA Neck: Supple, No JVD, No Thyromegaly Lungs: Clear to Auscultation, Normal Air Movement Heart: Regular Rate, Normal S1, Normal S2, No Murmurs Abdomen: Normal Bowel Sounds, Soft, No Tenderness, No Hepatosplenomegaly, No Masses Extremities: No Clubbing, No Cyanosis, No Edema, Normal Pulses, No Tenderness/ Swelling Skin: No Rashes, No Breakdown, No Significant Lesion Neuro: Normal Gait, Normal Speech, Strength at 5/5 X4 Ext, Normal Tone, Sensation Intact Psych/Mental Status: Mental Status NL, Mood NL Results Lab Laboratory Tests 12/15/16 04:42 A/P-Cardiology Admission Diagnosis Anterior chest wall pain Coronary artery disease Congestive heart failure Hypertension Assessment/Plan Chest pain, nonspecific etiology, atypical in presentation, recent myocardial infarction and bypass surgery.Undegoing Lexiscan stress test this morning. Coronary artery disease, status post acute myocardial infarction in October 2016, had CABG [address] Ham using MIRANDA to LAD, vein graft to diagonal artery, vein graft to posterior marginal and vein graft to the right PDA. EKG showed QS in the anterior leads. Stress test results pending. Congestive heart failure, chronic left ventricular systolic dysfunction, ischemic in nature, ejection fraction 30 percent during cardiac catheterization in October, I will reevaluate 2-D echocardiogram. Hypertension, monitor blood pressure Hyperlipidemia. Evaluate lipid profile, reporting that he has been taking Lipitor. Diabetes mellitus, followed and managed by primary care physician. Clinical Quality Measures AMI/AHF: ASA po Prior to arrival: Yes DVT/VTE Risk/Contraindication: Risk Factor Score Per Nursin RFS Level Per Nursing on Admit: 2=Moderate PHU BELTRE Dec 15, 2016 09:39
[2016-12-15] MEDS: lisINopril 5 MG (PRINIVIL) TABLET PO SCH (10:30)
[2016-12-15] MEDS: PREGABALIN 50 MG (LYRICA) CAP PO SCH ×2 (10:30→20:25)
[2016-12-15] MEDS: ONDANSETRON 4 MG/2 ML (SDV) Z0FRAN IV PRN ×2 (10:42→13:15)
[2016-12-15] MEDS ORDERED: PANTOPRAZOLE 40 MG/10 ML (PROTONIX) VIAL ONE (11:04)
[2016-12-15] MEDS ORDERED: LIDOCAINE 1% INJ 20 ML (XYLOCAINE) VIAL ONE (11:06)
[2016-12-15] MEDS ORDERED: MIDAZOLAM 5 MG/5 ML (VERSED) VIAL ONE (11:06)
[2016-12-15] MEDS ORDERED: NS IV 1000 ML 1,000 ML ONE (11:06)
[2016-12-15] MEDS ORDERED: fentaNYL INJECTION 100 MCG/2 ML AMP ONE (11:06)
[2016-12-15] MEDS ORDERED: HEParin (CATH LAB) 2,000 ML IV ONE (11:06)
--- NOTE | 2016-12-15 11:09 | Cardiology Progress Note ---
Subjective Subjective/Events-last exam Patient is in bed, complaining of abdominal pain, chest discomfort, has an abnormal stress test Review of Systems General: No Chills, No Night Sweats, No Fatigue, No Malaise, No Appetite, No Other HEENT: No Head Aches, No Visual Changes, No Eye Pain, No Ear Pain, No Dysphasia , No Sinus Congestion, No Post Nasal Drip, No Sore Throat, No Other Pulmonary: No Dyspnea, No Cough, Pleuritic Chest Pain, No Other Cardiovascular: Chest Pain, No: Edema, Lt Headedness, Orthopnea, Other, Palpitations, Paroxysmal Noc. Dyspnea Objective-Cardiology Exam Last Set of Vital Signs Vital Signs 12/14/16 12/15/16 12/15/16 20:32 03:21 09:11 Temp 96.8 Pulse 114 Resp 18 B/P (MAP) 112/74 Pulse Ox 98 O2 Delivery Room Air O2 Flow Rate 2.00 Capillary Refill : Less Than 3 Seconds I&O Intake and Output 12/15/16 00:00 Intake Total 2200 ml Output Total 3925 ml Balance -1725 ml Intake Oral 2200 ml Output Urine Total 3925 ml General: Alert, Oriented X3, Cooperative HEENT: Atraumatic, PERRLA Neck: Supple, No JVD, No Thyromegaly Lungs: Clear to Auscultation, Normal Air Movement Heart: Regular Rate, Normal S1, Normal S2, No Murmurs Abdomen: Normal Bowel Sounds, Soft, No Tenderness, No Hepatosplenomegaly, No Masses Extremities: No Clubbing, No Cyanosis, No Edema, Normal Pulses, No Tenderness/ Swelling Skin: No Rashes, No Breakdown, No Significant Lesion Neuro: Normal Gait, Normal Speech, Strength at 5/5 X4 Ext, Normal Tone, Sensation Intact Psych/Mental Status: Mental Status NL, Mood NL Results Lab Laboratory Tests 12/15/16 04:42 A/P-Cardiology Admission Diagnosis Anterior chest wall pain Coronary artery disease Congestive heart failure Hypertension Assessment/Plan Chest pain, nonspecific etiology, atypical in presentation, recent myocardial infarction and bypass surgery. Abnormal stress test, I will proceed with heart cath Coronary artery disease, status post acute myocardial infarction in October 2016, had CABG [address] Ham using MIRANDA to LAD, vein graft to diagonal artery, vein graft to obtuse marginal and vein graft to the right PDA. Congestive heart failure, chronic left ventricular systolic dysfunction, ischemic in nature, ejection fraction 30 percent during cardiac catheterization in October, I will reevaluate 2-D echocardiogram. Hypertension, monitor blood pressure Hyperlipidemia. Evaluate lipid profile, reporting that he has been taking Lipitor. Diabetes mellitus, followed and managed by primary care physician. Clinical Quality Measures AMI/AHF: ASA po Prior to arrival: Yes DVT/VTE Risk/Contraindication: Risk Factor Score Per Nursin RFS Level Per Nursing on Admit: 2=Moderate GILL PETIT MD Dec 15, 2016 11:09 am
--- NOTE | 2016-12-15 11:13 | Cardiac Procedure Note-CS/ASA ---
Pre-Procedure Note Pre-Op Procedure Note H&P Reviewed The H&P was reviewed, patient examined and no changes noted. Date H&P Reviewed: Dec 15, 2016 Time H&P Reviewed: 11:12 Conscious Sedation Pre-Proced Time Reviewed: 11:12 ASA Class: 3 Airway Mallampati Classification: ([place] appropriate class) I. II. III, IV Lungs Heart ASA score ASA 1: a normal healthy patient ASA 2: a patient with a mild systemic disease (mid diabetes, controlled hypertension, obesity x ASA 3: a patient with a severe systemic disease that limits activity (angina , COPD, prior Myocardial infarction) ASA 4: a patient with an incapacitating disease that is a constant threat to life (CHF, renal failure) ASA 5: a moribund patient not expected to survive 24 hrs. (ruptured aneurysm) ASA 6: a declared brain patient whose organs are being harvested. For emergent operations, add the letter E after the classification Grade 3 Sedation Plan: Analgesia, Amnesia, Plan communicated to team members, Discussed options with patient/fam, Discussed risks with patient/fam Note The patient is an appropriate candidate to undergo the planned procedure, sedation, and anesthesia. The patient immediately re-assessed prior to indication. GILL PETIT MD Dec 15, 2016 11:13 am
[2016-12-15] MEDS ORDERED: diphenhydrAMINE 50 MG/ML INJ (BENADRYL) ONE (11:24)
[2016-12-15] MEDS ORDERED: methylPREDNISolone 125 MG (Solu-MEDROL) VIAL ONE (11:24)
[2016-12-15] MEDS: ASPIRIN E.C. 81 MG (ECOTRIN) TAB PO SCH (11:37)
[2016-12-15] MEDS: NS IV 1000 ML 1,000 ML IV SCH ×2 (11:54→18:45)
[2016-12-15] MEDS ORDERED: PATIENT MAY USE OWN MEDS, ALL PO SCH (12:00)
[2016-12-15] MEDS ORDERED: NS IV 1000 ML 1,000 ML IV SCH (12:00)
--- NOTE | 2016-12-15 13:14 | STRESS TEST ---
PROCEDURE PHYSICIAN: GILL PETIT DATE OF PROCEDURE: 12/15/2016 LEXISCAN MYOVIEW STRESS TEST REPORT: REFERRING PHYSICIAN: [facility] BASELINE HEART RATE: 96 BASELINE BLOOD PRESSURE: 123/82 BASELINE EKG: Sinus rhythm with no ischemic changes. IN SUMMARY: The patient was injected with 10.64 mCi of technetium 99 Myoview and the resting images were obtained. Then the patient received 0.4 mg of Lexiscan followed by 32 mCi of technetium 99 Myoview. Throughout the test, there were no EKG changes. The resting and stress images were reviewed and compared in the short axis, horizontal long axis, and vertical long axis views. Review of the images showed total infarction of the mid to apical anterior wall, true apex, with judit-infarct ischemia. SSS is a 28, SDS 6, TID value 1.05. On the gated images, the left ventricle appeared to be dilated with hypokinesia involving the whole anterior wall, anterior apex, true apex. Systolic function is reduced. Calculated ejection fraction 32%. IN CONCLUSION: 1. The patient tolerated Lexiscan well. 2. Total infarction of the mid to apical anterior wall, true apex, with judit-infarct ischemia. 3. Prominent left ventricle with diffuse left ventricular hypokinesia more pronounced at the anterior wall, anterior apex. Dyskinesia at the true apex. Calculated ejection fraction 32%. 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
[2016-12-15] MEDS: ENOXAPARIN 40 MG/0.4 ML (LOVENOX) SYR SC SCH (14:00)
[2016-12-15] MEDS ORDERED: HYOSCYAMINE 0.125 MG (LEVSIN) TAB PO PRN (16:00)
[2016-12-15] MEDS ORDERED: meTOprolol 5 MG/5 ML (LOPRESSOR) VIAL IV NR (20:15)
[2016-12-15] MEDS: ZOLPIDEM 5 MG (AMBIEN) TAB PO SCH (20:25)
[2016-12-16 03:37] VITALS: BP 121/75
[2016-12-16] MEDS: inSUlin (REGULAR) HUMAN 1 UNIT/0.01 ML (CHARGE PER UNIT) SC SCH ×4 (06:00→19:30)
[2016-12-16] MEDS: PANTOPRAZOLE 40 MG (PROTONIX) TAB PO SCH (06:01)
[2016-12-16] MEDS: NS IV 1000 ML 1,000 ML IV SCH (06:19)
[2016-12-16 06:28] LABS: MEAN PLATELET VOLUME 8.3 FL (7.4-10.4); RED CELL DISTRIBUTION WIDTH 13.7 % (10.0-14.5)
[2016-12-16 06:38] LABS: WHITE BLOOD COUNT 10.2 10^3/uL (4.3-11.0)
[2016-12-16 06:44] LABS: ANION GAP 10 MMOL/L (5-14); BLOOD UREA NITROGEN 8 MG/DL (7-18); BUN/CREATININE RATIO 12; CALCIUM 8.7 MG/DL (8.5-10.1); CARBON DIOXIDE 21 MMOL/L (21-32); CHLORIDE 107 MMOL/L (98-107); CREATININE SERUM 0.69 MG/DL (0.60-1.30); GFR ESTIMATED > 60; GLUCOSE 140 MG/DL (70-105); POTASSIUM 3.8 MMOL/L (3.6-5.0); SODIUM 138 MMOL/L (135-145)
--- NOTE | 2016-12-16 07:55 | ECHOCARDIOGRAPHY REPORT ---
PROCEDURE PHYSICIAN: GILL PETIT DATE OF PROCEDURE: 12/14/2016 TWO DIMENSIONAL ECHOCARDIOGRAM REPORT PRIMARY PHYSICIAN: OTHER PHYSICIAN: REFERRING PHYSICIAN: Dr. Coronado ORDERING PHYSICIAN: INDICATION FOR THE PROCEDURE: Chest pain. MEASUREMENTS DERIVED VALUES LV DIAMETER (LAX) NORMALS NORMALS Diastolic 3.8 (3.6-5.2) Eject. Fract. 30% (60%+/-6%) Systolic (2.3-3.9) Diastolic Vol. % Shortening (0.22-0.42) Systolic Vol. Aortic Root IVS THICKNESS Diastolic 1.1 (0.6-1.1) LVPW THICKNESS Diastolic 1.1 (0.6-1.1) LA DIAMETER Systolic 2.3 (2.1-3.7) FINDINGS: 1. Technical quality is good. 2. The left ventricle is normal in size., Mild diffuse left ventricular hypokinesia. Akinesia of the whole anterior wall and apex. Dyskinesia of the apex. Estimated ejection fraction 30%. 3. The left atrium is normal in size. No clot or thrombus were seen within the left atrium. 4. The right atrium and right ventricle are normal in size. No clot or thrombus were seen within the right side. 5. Mitral valve is normal in morphology with mild mitral regurgitation noted by color Doppler flow. No mitral valve prolapse. No mitral valve stenosis. 6. Aortic valve is trileaflet with normal opening and closing pattern. No significant aortic stenosis or regurgitation was seen. 7. Tricuspid valve is normal in morphology with mild tricuspid regurgitation noted by color Doppler flow. Doppler across tricuspid valve estimated pulmonary artery pressure of 26+ right atrial pressure. 8. Pulmonic valve is functioning normally. 9. No pericardial effusion. IN CONCLUSION: 1. Normal left ventricular size. Mild diffuse left ventricular hypokinesia. Akinesia at the anterior wall, anterior apex. Dyskinesia of the true apex. Systolic function is reduced. Estimated ejection fraction 30%. 2. Mild mitral and tricuspid regurgitation. 3. Estimated pulmonary artery pressure of 35 mmHg. 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
[2016-12-16 08:00] VITALS: BP 142/87
--- NOTE | 2016-12-16 08:11 | Cardiology Progress Note ---
Subjective Subjective/Events-last exam Patient is bed, feeling better, no new complaint, reporting improvement. Review of Systems General: No Chills, No Night Sweats, No Fatigue, No Malaise, No Appetite, No Other HEENT: No Head Aches, No Visual Changes, No Eye Pain, No Ear Pain, No Dysphasia , No Sinus Congestion, No Post Nasal Drip, No Sore Throat, No Other Pulmonary: No Dyspnea, No Cough, No Pleuritic Chest Pain, No Other Cardiovascular: No: Chest Pain, Edema, Lt Headedness, Orthopnea, Other, Palpitations, Paroxysmal Noc. Dyspnea Objective-Cardiology Exam Last Set of Vital Signs Vital Signs 12/14/16 12/16/16 20:32 03:37 Temp 96.5 Pulse 98 Resp 18 B/P (MAP) 121/75 Pulse Ox 96 O2 Delivery Room Air O2 Flow Rate 2.00 Capillary Refill : Less Than 3 Seconds I&O Intake and Output 12/16/16 00:00 Intake Total 1080 ml Output Total 1175 ml Balance -95 ml Intake Oral 1080 ml Output Urine Total 1175 ml General: Alert, Oriented X3, Cooperative HEENT: Atraumatic, PERRLA Neck: Supple, No JVD, No Thyromegaly Lungs: Clear to Auscultation, Normal Air Movement Heart: Regular Rate, Normal S1, Normal S2, No Murmurs Abdomen: Normal Bowel Sounds, Soft, No Tenderness, No Hepatosplenomegaly, No Masses Extremities: No Clubbing, No Cyanosis, No Edema, Normal Pulses, No Tenderness/ Swelling Skin: No Rashes, No Breakdown, No Significant Lesion Neuro: Normal Gait, Normal Speech, Strength at 5/5 X4 Ext, Normal Tone, Sensation Intact Psych/Mental Status: Mental Status NL, Mood NL Results Lab Laboratory Tests 12/16/16 06:12 A/P-Cardiology Admission Diagnosis Anterior chest wall pain Coronary artery disease Congestive heart failure Hypertension Assessment/Plan Chest pain, nonspecific etiology, atypical in presentation, cardiac catheterization was done showing patent bypass grafts. Severe cardiomyopathy. Coronary artery disease, status post acute myocardial infarction in October 2016, had CABG [address] Ham using MIRANDA to LAD, vein graft to diagonal artery, vein graft to obtuse marginal and vein graft to the right PDA, Abnormal stress test, cardiac catheterization was done yesterday showing patent bypass grafts with severe cardiomyopathy, dyskinesia of the anterior wall. Ejection fraction 30 percent, I'll proceed with LifeVest for primary prevention Congestive heart failure, chronic left ventricular systolic dysfunction, ischemic in nature, ejection fraction 30 percent, planning for life vest. Monitor. Continue to maximize medical therapy Hypertension, monitor blood pressure Hyperlipidemia. Evaluate lipid profile, reporting that he has been taking Lipitor. Diabetes mellitus, followed and managed by primary care physician. Clinical Quality Measures AMI/AHF: ASA po Prior to arrival: Yes DVT/VTE Risk/Contraindication: Risk Factor Score Per Nursin RFS Level Per Nursing on Admit: 2=Moderate GILL PETIT MD Dec 16, 2016 08:11
[2016-12-16] MEDS: PREGABALIN 50 MG (LYRICA) CAP PO SCH ×2 (09:00→19:41)
[2016-12-16] MEDS: ASPIRIN E.C. 81 MG (ECOTRIN) TAB PO SCH (09:22)
[2016-12-16] MEDS: lisINopril 5 MG (PRINIVIL) TABLET PO SCH (09:22)
--- NOTE | 2016-12-16 10:17 | Diagnostic Imaging Report ---
INDICATION: Dyspnea and dizziness, post CODE BLUE. DISCUSSION: Single portable upright view of the chest was obtained, comparison 12/13/2016. Stable normal heart size. Median sternotomy is again noted. No focal consolidation, pleural fluid, or pneumothorax. IMPRESSION: 1. Negative portable chest. Dictated by: Dictated on workstation # [id number]
[2016-12-16 10:24] LABS: BASOPHILS % (AUTO) 0 % (0-10); EOSINOPHILS % (AUTO) 0 % (0-10); LYMPHOCYTES # (AUTO) 1.8 X 10^3 (1.0-4.0); LYMPHOCYTES % (AUTO) 15 % (12-44); MEAN CORPUSCULAR HEMOGLOBIN 29 PG (25-34); MEAN CORPUSCULAR HGB CONC 34 G/DL (32-36); MEAN CORPUSCULAR VOLUME 86 FL (80-99); MEAN PLATELET VOLUME 8.9 FL (7.4-10.4); MONOCYTES # (AUTO) 1.1 X 10^3 (0.0-1.0); MONOCYTES % (AUTO) 9 % (0-12); NEUTROPHILS # (AUTO) 8.7 X 10^3 (1.8-7.8); NEUTROPHILS % (AUTO) 75 % (42-75); PLATELET COUNT 317 10^3/uL (130-400); RED BLOOD COUNT 4.39 10^6/uL (4.35-5.85); WHITE BLOOD COUNT 11.5 10^3/uL (4.3-11.0)
--- NOTE | 2016-12-16 10:54 | CARDIAC CATHETERIZATION ---
PROCEDURE PHYSICIAN: GILL PETIT DATE OF PROCEDURE: 12/15/2016 REFERRING PHYSICIAN: [facility] BRIEF HISTORY: Mr. Pena is a 56-year-old gentleman with coronary artery disease. He had CABG x4 done in October 2016. He was admitted with acute chest pain. Had an abnormal stress test this morning he was scheduled for left heart catheterization, possible PTCA. PROCEDURE NOTE: After explaining the procedure to the patient, all pros and cons were explained. All questions were answered. The patient signed a consent, then he was placed on the cardiac catheterization laboratory. The right groin was prepped in a sterile fashion. Local anesthesia applied to the right groin. 6-Citizen Of [place] sheath was placed in the right femoral artery. Combination of right and left Aron catheter were used to access the right and left coronary system. Multiple views were obtained. Aron right catheter was used to access the vein graft and internal mammary artery, angiogram was done. Then a pigtail catheter advanced to the left ventricular cavity. Pressure was measured. No left ventriculogram was done. At the end of the procedure, sheath was removed. Mynx device deployed. Hemostasis achieved. FINDINGS: HEMODYNAMICS: LV pressure is 111/10, end-diastolic pressure of 10, aortic pressure 120/76, mean of 94. No significant gradient during pullback across the aortic valve. ANATOMY: 1. Left main coronary artery is bifurcating to left anterior descending and left circumflex artery with no obstructive disease. 2. Left anterior descending artery is moderate in size, totally occluded at the midportion. MIRANDA to the LAD is patent and vein graft to diagonal artery is patent. 3. Left circumflex artery is moderate in size subtotal occlusion distally. The vein graft to the obtuse marginal branch is patent with good flow distally. 4. Right coronary artery is totally occluded at the midportion with patent vein graft to the right coronary artery. 5. Vein graft angiogram: The lower vein graft is the vein graft to the right coronary artery, which is patent. Middle vein graft to the diagonal artery and it is patent. The upper vein graft is vein graft to the second obtuse marginal branch and is patent with excellent flow distally. 6. MIRANDA angiogram: The MIRANDA to the LAD is patent with good flow distally. Discussion. CONCLUSION: 1. Patent MIRANDA to LAD vein graft to diagonal artery, vein graft to obtuse marginal branch and vein graft to the right coronary artery. 2. Severe [place] coronary artery disease. 3. Normal left ventricular end-diastolic pressure. DISCUSSION AND RECOMMENDATION: Mr. Pena's abnormal stress test is probably due to the infarcted anterior wall and apex, with judit-infarct ischemia. Small vessel disease. Medical therapy is recommended.. Job ID: [id number] Dictated Date: 12/15/2016 12:06:35 Computer Operator Date: 12/16/2016 10:46:40 / luke
--- NOTE | 2016-12-16 11:02 | Progress Note (SOAP) ---
Subjective Subjective/Events-last exam Cardiac catheterization done yesterday with clear bypass but severe cardiomyopathy. He had continued nausea and abdominal cramping after cath which prompted further monitoring and started hyoscyamine which apparently helped some , but when he tried to eat this morning he had nausea and cramping and ate only half a pancake. When I arrived to see him, he was lying face down on the floor. He had strong, normal radial pulse and was breathing easily and within a few seconds woke up and was alert and oriented to self and location. He states he stood up to open the door, felt dizzy so he sat down on the floor and then "the lights went out". He denies any pain anywhere, including head and chest. He does feel slightly short of breath. He continues to have abdominal pain and cramping. He reports soft BM yesterday, none today. He has felt like his heart is racing. Objective Exam Last Set of Vital Signs Vital Signs Date Time Temp Pulse Resp B/P (MAP) Pulse Ox O2 Delivery O2 Flow Rate FiO2 12/16/16 08:00 98.6 101 16 142/87 100 Room Air 12/14/16 20:32 2.00 Capillary Refill : Less Than 3 Seconds I&O Intake and Output 12/16/16 00:00 Intake Total 1080 ml Output Total 1175 ml Balance -95 ml Intake Oral 1080 ml Output Urine Total 1175 ml General: Alert, Oriented X3 Lungs: Clear to Auscultation Heart: Regular Rate (occasional pause), No Murmurs Abdomen: Normal Bowel Sounds, Soft, Other (mild epigastric ttp) Extremities: No Edema Neuro: Normal Speech Psych/Mental Status: Mental Status NL Results/Procedures Lab Laboratory Tests 12/15/16 13:17: Glucometer 212H 12/15/16 19:53: Glucometer 278H 12/16/16 06:06: Glucometer 135H 12/16/16 06:12: White Blood Count 10.2, Red Blood Count 4.00L, Hemoglobin 11.4L, Hematocrit 35L , Mean Corpuscular Volume 87, Mean Corpuscular Hemoglobin 29, Mean Corpuscular Hemoglobin Concent 33, Red Cell Distribution Width 13.7, Platelet Count 289, Mean Platelet Volume 8.3, Sodium Level 138, Potassium Level 3.8, Chloride Level 107, Carbon Dioxide Level 21, Anion Gap 10, Blood Urea Nitrogen 8, Creatinine 0.69, Estimat Glomerular Filtration Rate > 60, BUN/Creatinine Ratio 12, Glucose Level 140H, Calcium Level 8.7 12/16/16 09:50: Glucometer 161H 12/16/16 10:15: White Blood Count 11.5H, Red Blood Count 4.39, Hemoglobin 12.8L, Hematocrit 38L , Mean Corpuscular Volume 86, Mean Corpuscular Hemoglobin 29, Mean Corpuscular Hemoglobin Concent 34, Red Cell Distribution Width 14.0, Platelet Count 317, Mean Platelet Volume 8.9, Neutrophils (%) (Auto) 75, Lymphocytes (%) (Auto) 15, Monocytes (%) (Auto) 9, Eosinophils (%) (Auto) 0, Basophils (%) (Auto) 0, Neutrophils # (Auto) 8.7H, Lymphocytes # (Auto) 1.8, Monocytes # (Auto) 1.1H, Eosinophils # (Auto) 0.0, Basophils # (Auto) 0.0 Radiology CXR 12/13: no acute changes Assessment/Plan Assessment/Plan Admission Dx 1. Nausea and vomiting 2. Chest pain with recent CABG 3. DMII 4. Chronic systolic congestive heart failure secondary to ischemic cardiomyopathy 5. Syncope Plan 1. Nausea and vomiting- possible viral gastritis -IVF, ondansetron, CLD advance as tolerated -Continues to have cramping and pain with nausea and poor intake in spite of ondansetron, pantoprazole and hyoscyamine, will add carafate and check gall bladder US, lipase and stool for blood 2. Chest pain with recent CABG- Cardiology consulted, troponins negative, no acute EKG changes -Metoprolol XL started by Dr. Perez, will hold home carvedilol, continue home lisinopril, clopidogrel, aspirin and atorvastatin -Stress test abnormal, catheterization done 12/15 with patent grafts but severe cardiomyopathy -Lifevest being placed per Cardiology recommendation 3. DMII- resumed home Janumet and Toujeo -SSI as needed -Hold metformin for 48 hours after cardiac cath 4. Chronic systolic congestive heart failure secondary to ischemic cardiomyopathy -Life vest being placed today, continue beta hoa, ACEI, ASA and statin 5. Syncope- likely due to combination of poor intake and poor EF with orthostatic hypotension -After syncopal episode this morning review notes sinus tach on monitor at time of episode, blood sugar 160, blood pressure with significant drop between lying and standing and heart rate with significant increase between lying and sitting -BNP, BMP, CBC, troponin and CXR ordered- CXR unremarkable, labs pending, will likely give IVF bolus if BNP not significantly elevated -Stop hyoscyamine as anticholinergic may increase risk of tachycardia and weakness -Life vest as noted above and will continue to evaluate abdominal issues to improve oral intake DVT ppx- SCDS, enoxaparin Diagnosis/Problems: Clinical Quality Measures AMI/AHF: ASA po Prior to arrival: Yes DVT/VTE Risk/Contraindication: Risk Factor Score Per Nursin RFS Level Per Nursing on Admit: 2=Moderate TIM CHRISTINE MD Dec 16, 2016 11:02 am
[2016-12-16 11:07] LABS: ANION GAP 9 MMOL/L (5-14); BLOOD UREA NITROGEN 9 MG/DL (7-18); BUN/CREATININE RATIO 12; CALCIUM 8.9 MG/DL (8.5-10.1); CARBON DIOXIDE 22 MMOL/L (21-32); CHLORIDE 105 MMOL/L (98-107); CREATININE SERUM 0.78 MG/DL (0.60-1.30); GFR ESTIMATED > 60; GLUCOSE 190 MG/DL (70-105); POTASSIUM 3.5 MMOL/L (3.6-5.0); SODIUM 136 MMOL/L (135-145)
[2016-12-16 11:09] LABS: TROPONIN I < 0.30 NG/ML (<0.30)
[2016-12-16 11:35] LABS: MAGNESIUM 1.7 MG/DL (1.8-2.4)
[2016-12-16 12:00] VITALS: BP 127/83
[2016-12-16] MEDS ORDERED: NS IV 500 ML 500 ML IV ONE (12:30)
[2016-12-16] MEDS: SUCRALFATE 1 GM (CARAFATE) TAB PO SCH ×3 (12:42→20:09)
--- NOTE | 2016-12-16 13:46 | Diagnostic Imaging Report ---
PROCEDURE: US Gallbladder. TECHNIQUE: Multiple real-time grayscale images were obtained over the right upper quadrant in various projections. INDICATION: Abdominal pain. FINDINGS: The pancreas is largely obscured. The left lobe of the liver is also largely obscured by bowel gas. The right thyroid lobe demonstrates no focal abnormality. There is hepatopetal flow in the portal vein seen. The CBD is 5 mm in caliber. The gallbladder demonstrates no stones or wall thickening. No fluid collection in the upper right abdomen seen. Sonographic Dutta sign is reportedly negative. IMPRESSION: No gallstones or evidence of cholecystitis. Dictated by: Dictated on workstation # [id number]
[2016-12-16] MEDS: ENOXAPARIN 40 MG/0.4 ML (LOVENOX) SYR SC SCH (15:36)
[2016-12-16 16:00] VITALS: BP 129/80
[2016-12-16 20:00] VITALS: BP 113/74
[2016-12-16] MEDS: ZOLPIDEM 5 MG (AMBIEN) TAB PO SCH (20:09)
[2016-12-17 00:25] VITALS: BP 102/66
[2016-12-17 04:15] VITALS: BP 118/78
[2016-12-17] MEDS: inSUlin (REGULAR) HUMAN 1 UNIT/0.01 ML (CHARGE PER UNIT) SC SCH ×4 (05:33→21:41)
[2016-12-17] MEDS: SUCRALFATE 1 GM (CARAFATE) TAB PO SCH ×4 (05:52→20:22)
[2016-12-17] MEDS: PANTOPRAZOLE 40 MG (PROTONIX) TAB PO SCH (05:52)
[2016-12-17 06:47] LABS: RED BLOOD COUNT 4.14 10^6/uL (4.35-5.85); RED CELL DISTRIBUTION WIDTH 13.9 % (10.0-14.5); WHITE BLOOD COUNT 8.2 10^3/uL (4.3-11.0)
[2016-12-17 07:09] LABS: ALANINE AMINOTRANSFERASE 13 U/L (0-55); ALBUMIN 3.7 G/DL (3.2-4.5); ANION GAP 9 MMOL/L (5-14); ASPARTATE AMINO TRANSFERASE 13 U/L (5-34); BILIRUBIN,TOTAL 0.6 MG/DL (0.1-1.0); BLOOD UREA NITROGEN 8 MG/DL (7-18); BUN/CREATININE RATIO 11; CALCIUM 8.7 MG/DL (8.5-10.1); CARBON DIOXIDE 26 MMOL/L (21-32); CHLORIDE 101 MMOL/L (98-107); GFR ESTIMATED > 60; GLUCOSE 177 MG/DL (70-105); POTASSIUM 3.4 MMOL/L (3.6-5.0); SODIUM 136 MMOL/L (135-145); TOTAL PROTEIN 6.2 G/DL (6.4-8.2)
[2016-12-17 08:00] VITALS: BP 138/93
[2016-12-17] MEDS: PREGABALIN 50 MG (LYRICA) CAP PO SCH ×2 (08:58→20:22)
[2016-12-17] MEDS: ASPIRIN E.C. 81 MG (ECOTRIN) TAB PO SCH (08:58)
[2016-12-17] MEDS: lisINopril 5 MG (PRINIVIL) TABLET PO SCH (08:58)
--- NOTE | 2016-12-17 08:59 | Cardiology Progress Note ---
Subjective Subjective/Events-last exam Patient in bed, no new complaints. Denies any CP or dyspnea. Continues to complain of some nausea. Review of Systems General: No Chills, No Night Sweats, No Fatigue, No Malaise, No Appetite, No Other HEENT: No Head Aches, No Visual Changes, No Eye Pain, No Ear Pain, No Dysphasia , No Sinus Congestion, No Post Nasal Drip, No Sore Throat, No Other Pulmonary: No Dyspnea, No Cough, No Pleuritic Chest Pain, No Other Cardiovascular: No: Chest Pain, Edema, Lt Headedness, Orthopnea, Other, Palpitations, Paroxysmal Noc. Dyspnea Gastrointestinal: Nausea, Vomiting, No: Abdominal Pain Genitourinary: No Dysuria, No Frequency, No Incontinence, No Hematuria, No Retention, No Other Musculoskeletal: No: arm pain, back pain, foot pain, hand pain, leg pain, neck pain, other, shoulder pain Neurological: No: Change in speech, Confusion, Incoordination, Numbness, Other , Seizures, Weakness Objective-Cardiology Exam Last Set of Vital Signs Vital Signs 12/14/16 12/17/16 20:32 08:00 Temp 96.8 Pulse 107 Resp 20 B/P (MAP) 138/93 Pulse Ox 99 O2 Delivery Room Air O2 Flow Rate 2.00 Capillary Refill : Less Than 3 Seconds I&O Intake and Output 12/17/16 00:00 Intake Total 3110 ml Output Total 2175 ml Balance 935 ml Intake Oral 1610 ml IV Total 1500 ml Output Urine Total 2175 ml General: Alert, Oriented X3 HEENT: Atraumatic, PERRLA Neck: Supple, No JVD, No Thyromegaly Lungs: Clear to Auscultation Heart: Regular Rate (occasional pause), No Murmurs Abdomen: Normal Bowel Sounds, Soft, Other (mild epigastric ttp) Extremities: No Edema Skin: No Rashes, No Breakdown, No Significant Lesion Neuro: Normal Speech Psych/Mental Status: Mental Status NL Results Lab Laboratory Tests 12/16/16 10:15 12/17/16 06:09 A/P-Cardiology Admission Diagnosis Anterior chest wall pain Coronary artery disease Congestive heart failure Hypertension Assessment/Plan Chest pain, nonspecific etiology, atypical in presentation, cardiac catheterization was done showing patent bypass grafts. Severe cardiomyopathy. Coronary artery disease, status post acute myocardial infarction in October 2016, had CABG [address] Ham using MIRANDA to LAD, vein graft to diagonal artery, vein graft to obtuse marginal and vein graft to the right PDA, Abnormal stress test, cardiac catheterization was done yesterday showing patent bypass grafts with severe cardiomyopathy, dyskinesia of the anterior wall. Ejection fraction 30 percent, I'll proceed with LifeVest for primary prevention Congestive heart failure, chronic left ventricular systolic dysfunction, ischemic in nature, ejection fraction 30 percent, planning for life vest. Monitor. Continue to maximize medical therapy Ventricular tachycardia- patient had a 9 beat run of NSVT on telemetry last night, was asymptomatic. I will increase Toprol XL and continue to monitor telemetry. Patient being fitted for LifeVest for further protection. Hypertension, currently borderline hypotension, increasing Toprol SL, continue to monitor blood pressure Hyperlipidemia. maintained on Lipitor. Continue to monitor. Diabetes mellitus, followed and managed by primary care physician. Clinical Quality Measures AMI/AHF: ASA po Prior to arrival: Yes DVT/VTE Risk/Contraindication: Risk Factor Score Per Nursin RFS Level Per Nursing on Admit: 2=Moderate PHU BELTRE Dec 17, 2016 08:59
[2016-12-17] MEDS ORDERED: MAGNESIUM 1 GM/100 ML IVPB 100 ML IV NR (09:00)
[2016-12-17] MEDS ORDERED: NS IV 500 ML 500 ML ONE (09:14)
[2016-12-17] MEDS: POTASSIUM CL 10MEQ/50ML IVPB 50 ML IV SCH ×2 (10:22→11:42)
[2016-12-17] MEDS ORDERED: PANT40TA3 PO (10:39)
[2016-12-17] MEDS ORDERED: METO-270 PO (10:39)
[2016-12-17] MEDS ORDERED: SUCR1TAB PO (10:39)
[2016-12-17 12:00] VITALS: BP 123/80
--- NOTE | 2016-12-17 13:42 | Cardiology Progress Note ---
Subjective Subjective/Events-last exam patient is laying down in bed, feeling better, had a syncopal episode yesterday probably hypotensive episode, at night he had 3 seconds episode of nonsustained ventricular tachycardia, he was asymptomatic. Review of Systems General: No Chills, No Night Sweats, No Fatigue, No Malaise, No Appetite, No Other HEENT: No Head Aches, No Visual Changes, No Eye Pain, No Ear Pain, No Dysphasia , No Sinus Congestion, No Post Nasal Drip, No Sore Throat, No Other Pulmonary: No Dyspnea, No Cough, No Pleuritic Chest Pain, No Other Cardiovascular: No: Chest Pain, Edema, Lt Headedness, Orthopnea, Other, Palpitations, Paroxysmal Noc. Dyspnea Objective-Cardiology Exam Last Set of Vital Signs Vital Signs 12/14/16 12/17/16 12/17/16 20:32 08:00 08:40 Temp 96.8 Pulse 107 Resp 20 B/P (MAP) 138/93 Pulse Ox 99 O2 Delivery Room Air O2 Flow Rate 2.00 Capillary Refill : Less Than 3 Seconds I&O Intake and Output 12/17/16 00:00 Intake Total 3110 ml Output Total 2175 ml Balance 935 ml Intake Oral 1610 ml IV Total 1500 ml Output Urine Total 2175 ml General: Alert, Oriented X3 HEENT: Atraumatic, PERRLA Neck: Supple, No JVD, No Thyromegaly Lungs: Clear to Auscultation Heart: Regular Rate (occasional pause), No Murmurs Abdomen: Normal Bowel Sounds, Soft, Other (mild epigastric ttp) Extremities: No Edema Skin: No Rashes, No Breakdown, No Significant Lesion Neuro: Normal Speech Psych/Mental Status: Mental Status NL Results Lab Laboratory Tests 12/17/16 06:09 A/P-Cardiology Admission Diagnosis Anterior chest wall pain Coronary artery disease Congestive heart failure Hypertension Assessment/Plan Chest pain, nonspecific etiology, atypical in presentation, cardiac catheterization was done showing patent bypass grafts. Severe cardiomyopathy. Syncope, probably hypotensive episode occurred yesterday, he was on telemetry and no arrhythmia was detected, currently feeling better. Nonsustained ventricular tachycardia recorded last night at 1030 p.m., patient was asymptomatic, lasted for 3 seconds, has been on beta blockers. Patient had aneurysmal apex, he is post bypass surgery done on October 17, 2016, patient will need to have a LifeVest or EP study for inducible V. tach prior to ICD implantation. He was noted to have mild hypokalemia which will be replaced. Monitor closely. Coronary artery disease, status post acute myocardial infarction in October 2016, had CABG [address] Ham using MIRANDA to LAD, vein graft to diagonal artery, vein graft to obtuse marginal and vein graft to the right PDA, Abnormal stress test, cardiac catheterization was done yesterday showing patent bypass grafts with severe cardiomyopathy, dyskinesia of the anterior wall. Ejection fraction 30 percent Congestive heart failure, chronic left ventricular systolic dysfunction, ischemic in nature, ejection fraction 30 percent, planning for life vest. patient is unable to tolerate a higher dose of beta blockers and/or RONALD inhibitor due to hypotension and syncope Hypertension, currently borderline hypotension, continue to monitor. Cannot tolerate a higher dose of beta blockers and or Ronald inhibitor due to syncope and hypotension Hyperlipidemia. maintained on Lipitor. Continue to monitor. Diabetes mellitus, followed and managed by primary care physician. Clinical Quality Measures AMI/AHF: ASA po Prior to arrival: Yes DVT/VTE Risk/Contraindication: Risk Factor Score Per Nursin RFS Level Per Nursing on Admit: 2=Moderate GILL PETIT MD Dec 17, 2016 13:42
[2016-12-17] MEDS: ENOXAPARIN 40 MG/0.4 ML (LOVENOX) SYR SC SCH (15:24)
[2016-12-17 16:05] VITALS: BP 102/70
[2016-12-17 19:15] VITALS: BP 127/78
[2016-12-17] MEDS: ZOLPIDEM 5 MG (AMBIEN) TAB PO SCH (20:22)
[2016-12-18] VITALS: BP 118/79
[2016-12-18 04:00] VITALS: BP 118/76
[2016-12-18] MEDS: inSUlin (REGULAR) HUMAN 1 UNIT/0.01 ML (CHARGE PER UNIT) SC SCH ×2 (06:12→10:47)
[2016-12-18] MEDS: PANTOPRAZOLE 40 MG (PROTONIX) TAB PO SCH (06:12)
[2016-12-18] MEDS: SUCRALFATE 1 GM (CARAFATE) TAB PO SCH ×2 (06:12→10:47)
[2016-12-18 08:00] VITALS: BP 101/71
[2016-12-18] MEDS: lisINopril 5 MG (PRINIVIL) TABLET PO SCH (08:56)
[2016-12-18] MEDS: ASPIRIN E.C. 81 MG (ECOTRIN) TAB PO SCH (08:56)
[2016-12-18] MEDS: PREGABALIN 50 MG (LYRICA) CAP PO SCH (08:56)
--- NOTE | 2016-12-18 09:13 | Cardiology Progress Note ---
Subjective Subjective/Events-last exam patient is laying down in bed, feeling well. Denied any chest pain or shortness of breath. No palpitation Review of Systems General: No Chills, No Night Sweats, No Fatigue, No Malaise, No Appetite, No Other HEENT: No Head Aches, No Visual Changes, No Eye Pain, No Ear Pain, No Dysphasia , No Sinus Congestion, No Post Nasal Drip, No Sore Throat, No Other Pulmonary: No Dyspnea, No Cough, No Pleuritic Chest Pain, No Other Cardiovascular: No: Chest Pain, Edema, Lt Headedness, Orthopnea, Other, Palpitations, Paroxysmal Noc. Dyspnea Objective-Cardiology Exam Last Set of Vital Signs Vital Signs 12/14/16 12/18/16 20:32 04:00 Temp 97.3 Pulse 94 Resp 17 B/P (MAP) 118/76 Pulse Ox 98 O2 Delivery Room Air O2 Flow Rate 2.00 Capillary Refill : Less Than 3 Seconds I&O Intake and Output 12/18/16 00:00 Intake Total 1940 ml Output Total 1950 ml Balance -10 ml Intake Oral 1640 ml IV Total 300 ml Output Urine Total 1950 ml General: Alert, Oriented X3 HEENT: Atraumatic, PERRLA Neck: Supple, No JVD, No Thyromegaly Lungs: Clear to Auscultation Heart: Regular Rate (occasional pause), No Murmurs Abdomen: Normal Bowel Sounds, Soft, Other (mild epigastric ttp) Extremities: No Edema Skin: No Rashes, No Breakdown, No Significant Lesion Neuro: Normal Speech Psych/Mental Status: Mental Status NL Results Lab Laboratory Tests Test 12/17/16 09:59 12/17/16 16:50 12/17/16 21:24 12/18/16 06:06 Range/Units Glucometer 267 H 135 H 189 H 233 H 70-110 MG/DL A/P-Cardiology Admission Diagnosis Anterior chest wall pain Coronary artery disease Congestive heart failure Hypertension Assessment/Plan Chest pain, nonspecific etiology, atypical in presentation, cardiac catheterization was done showing patent bypass grafts. Syncope, probably hypotensive episode occurred yesterday, he was on telemetry and no arrhythmia was detected, during the syncopal episode. Sinus tachycardia, I'll increase beta blockers and evaluate his tolerance and response. Nonsustained ventricular tachycardia recorded last night at 1030 p.m., patient was asymptomatic, lasted for 3 seconds, has been on beta blockers. Patient had aneurysmal apex, he is post bypass surgery done on October 17, 2016, patient will need to have a LifeVest or EP study for inducible V. tach prior to ICD implantation. He was noted to have mild hypokalemia which was replaced, I will evaluate metabolic profile today, increase beta blockers, does not want to go to [place] for EP study. Coronary artery disease, status post acute myocardial infarction in October 2016, had CABG [address] Ham using MIRANDA to LAD, vein graft to diagonal artery, vein graft to obtuse marginal and vein graft to the right PDA, Abnormal stress test, cardiac catheterization was done yesterday showing patent bypass grafts with severe cardiomyopathy, dyskinesia of the anterior wall. Ejection fraction 30 percent Congestive heart failure, chronic left ventricular systolic dysfunction, ischemic in nature, ejection fraction 30 percent, planning for life vest. patient is unable to tolerate a higher dose of beta blockers and/or RONALD inhibitor due to hypotension and syncope Hypertension, currently borderline hypotension, continue to monitor. Cannot tolerate a higher dose of beta blockers and or Ronald inhibitor due to syncope and hypotension Hyperlipidemia. maintained on Lipitor. Continue to monitor. Diabetes mellitus, followed and managed by primary care physician. Clinical Quality Measures AMI/AHF: ASA po Prior to arrival: Yes DVT/VTE Risk/Contraindication: Risk Factor Score Per Nursin RFS Level Per Nursing on Admit: 2=Moderate GILL PETIT MD Dec 18, 2016 09:13
[2016-12-18 09:52] LABS: RED BLOOD COUNT 4.5 10^6/uL (4.35-5.85); RED CELL DISTRIBUTION WIDTH 13.9 % (10.0-14.5); WHITE BLOOD COUNT 10.7 10^3/uL (4.3-11.0)
[2016-12-18 10:08] LABS: ANION GAP 11 MMOL/L (5-14); BLOOD UREA NITROGEN 10 MG/DL (7-18); BUN/CREATININE RATIO 12; CALCIUM 9.4 MG/DL (8.5-10.1); CARBON DIOXIDE 23 MMOL/L (21-32); CHLORIDE 98 MMOL/L (98-107); CREATININE SERUM 0.81 MG/DL (0.60-1.30); GFR ESTIMATED > 60; GLUCOSE 272 MG/DL (70-105); MAGNESIUM 1.7 MG/DL (1.8-2.4); POTASSIUM 3.7 MMOL/L (3.6-5.0); SODIUM 132 MMOL/L (135-145)
[2016-12-18] MEDS ORDERED: METO-272 PO (10:55)
--- NOTE | 2016-12-18 11:10 | Progress Note (SOAP) ---
Subjective Subjective/Events-last exam LATE ENTRY, patient seen 412 am Feeling better, ate full breakfast with minimal nausea or abdominal pain. Took a shower without dizziness. Date seen by provider: Dec 17, 2016 Objective Exam Last Set of Vital Signs Vital Signs Date Time Temp Pulse Resp B/P (MAP) Pulse Ox O2 Delivery O2 Flow Rate FiO2 12/18/16 08:08 103 12/18/16 08:00 97.7 18 101/71 98 Room Air 12/14/16 20:32 2.00 Capillary Refill : Less Than 3 Seconds I&O Intake and Output 12/18/16 00:00 Intake Total 1940 ml Output Total 1950 ml Balance -10 ml Intake Oral 1640 ml IV Total 300 ml Output Urine Total 1950 ml General: Alert, No Acute Distress Lungs: Clear to Auscultation, Normal Air Movement Heart: Regular Rate, No Murmurs Abdomen: Normal Bowel Sounds, Soft, No Tenderness Psych/Mental Status: Mental Status NL Results/Procedures Lab Laboratory Tests 12/17/16 16:50: Glucometer 135H 12/17/16 21:24: Glucometer 189H 12/18/16 06:06: Glucometer 233H 12/18/16 09:44: Glucometer 234H 12/18/16 09:45: White Blood Count 10.7, Red Blood Count 4.50, Hemoglobin 13.0L, Hematocrit 39L, Mean Corpuscular Volume 86, Mean Corpuscular Hemoglobin 29, Mean Corpuscular Hemoglobin Concent 34, Red Cell Distribution Width 13.9, Platelet Count 335, Mean Platelet Volume 9.0, Sodium Level 132L, Potassium Level 3.7, Chloride Level 98, Carbon Dioxide Level 23, Anion Gap 11, Blood Urea Nitrogen 10, Creatinine 0.81, Estimat Glomerular Filtration Rate > 60, BUN/Creatinine Ratio 12, Glucose Level 272H, Calcium Level 9.4, Magnesium Level 1.7L Radiology CXR 12/13: no acute changes Assessment/Plan Assessment/Plan Admission Dx 1. Nausea and vomiting 2. Chest pain with recent CABG 3. DMII 4. Chronic systolic congestive heart failure secondary to ischemic cardiomyopathy 5. Syncope Plan 1. Nausea and vomiting- possible viral gastritis -IVF, ondansetron, CLD advance as tolerated -Continues to have cramping and pain with nausea and poor intake in spite of ondansetron, pantoprazole and hyoscyamine, will add carafate and check gall bladder US, lipase and stool for blood -12/17 lipase normal, gall bladder US normal, pain improved, possibly improving ulcer given treatment with carafate and protonix (d/c'd hyoscyamine due to dizziness/syncope) 2. Chest pain with recent CABG- Cardiology consulted, troponins negative, no acute EKG changes -Metoprolol XL started by Dr. Perez, will hold home carvedilol, continue home lisinopril, clopidogrel, aspirin and atorvastatin -Stress test abnormal, catheterization done 12/15 with patent grafts but severe cardiomyopathy -Lifevest being placed per Cardiology recommendation -12/17 anticipate d/c if Lifevest available 3. DMII- resumed home Janumet and Toujeo -SSI as needed -Hold metformin for 48 hours after cardiac cath 4. Chronic systolic congestive heart failure secondary to ischemic cardiomyopathy -12/17 Life vest being placed today, continue beta hoa, ACEI, ASA and statin 5. Syncope- likely due to combination of poor intake and poor EF with orthostatic hypotension -After syncopal episode this morning review notes sinus tach on monitor at time of episode, blood sugar 160, blood pressure with significant drop between lying and standing and heart rate with significant increase between lying and sitting -BNP, BMP, CBC, troponin and CXR ordered- CXR unremarkable, labs pending, will likely give IVF bolus if BNP not significantly elevated -Stop hyoscyamine as anticholinergic may increase risk of tachycardia and weakness -Life vest as noted above and will continue to evaluate abdominal issues to improve oral intake -12/17 no further episodes, waiting on life vest DVT ppx- SCDS, enoxaparin Diagnosis/Problems: Clinical Quality Measures AMI/AHF: ASA po Prior to arrival: Yes DVT/VTE Risk/Contraindication: Risk Factor Score Per Nursin RFS Level Per Nursing on Admit: 2=Moderate TIM CHRISTINE MD Dec 18, 2016 11:10 am
--- NOTE | 2016-12-18 11:50 | Discharge Instructions ---
Discharge [facility] Discharge Medications New, Converted or Re-Newed RX: Transmitted to Pharmacy New Medications: Metoprolol Succinate (Metoprolol Succinate) 50 Mg Tab.er.24h 50 MG PO DAILY, #30 TAB 0 Refills Pantoprazole Sodium (Pantoprazole Sodium) 40 Mg Tablet.dr 40 MG PO DAILY@0700, #30 TAB 0 Refills Sucralfate (Sucralfate) 1 Gm Tablet 1 GM PO ACHS, #120 TAB 0 Refills Continued Medications: Aspirin (Aspir 81) 81 Mg Tablet.dr 81 MG PO DAILY, TAB Atorvastatin Calcium (Lipitor) 80 Mg Tablet 80 MG PO HS, TAB Clopidogrel Bisulfate (Clopidogrel) 75 Mg Tablet 75 MG PO DAILY, TAB Insulin Glargine,Hum.rec.anlog (Toualejandro Solgertrude) 300 Unit/1 Ml Insuln.pen 15 UNIT SQ DAILY, EA Lisinopril (Lisinopril) 5 Mg Tablet 2.5 MG PO DAILY, TAB TAKES 1/2 (5MG) TABLET Nitroglycerin (Nitrolingual) 12 Gm [place] 1 SPRAY TL UD PRN for CHEST PAIN, SPRAY Sitagliptin Phos/Metformin HCl (Janumet 50-500 mg Tablet) 1 Tab Tablet 1 TAB PO BID Discontinued Medications: Carvedilol (Carvedilol) 12.5 Mg Tablet 6.25 MG PO BID, TAB TAKES 1/2 (12.5MG) TABLET Pregabalin (Lyrica) 50 Mg Capsule 50 MG PO BID, CAP Patient Instructions Goal/Follow Up Appt: Follow up with Margarita Em APRN on 12/22 at 12:20 pm. Follow up with Dr. Perez as instructed Return to [facility] For: Chest pain, abdominal pain, dizziness, palpitations Activity & Diet Discharge Diet: ADA Diet, Cardiac Diet Activity as Tolerated: Yes TIM CHRISTINE MD Dec 17, 2016 10:40 am
--- NOTE | 2016-12-18 11:55 | Discharge Summary ---
Diagnosis/Chief Complaint Date of Admission Dec 13, 2016 at 6:14 pm Date of Discharge December 18, 2016 Admission Diagnosis Admission Diagnosis 1. Nausea and vomiting 2. Chest pain with recent CABG 3. DMII 4. Chronic systolic congestive heart failure secondary to ischemic cardiomyopathy 5. Syncope Discharge Diagnosis 1. Nausea and vomiting- possible viral gastritis -IVF, ondansetron, CLD advance as tolerated -Continues to have cramping and pain with nausea and poor intake in spite of ondansetron, pantoprazole and hyoscyamine, will add carafate and check gall bladder US, lipase and stool for blood -12/17 lipase normal, gall bladder US normal, pain improved, possibly improving ulcer given treatment with carafate and protonix but would consider ischemic colitis if symptoms return or worsen in spite of treatment. (d/c'd hyoscyamine due to dizziness/syncope) 2. Chest pain with recent CABG- Cardiology consulted, troponins negative, no acute EKG changes -Metoprolol XL started by Dr. Perez, will hold home carvedilol, continue home lisinopril, clopidogrel, aspirin and atorvastatin -Stress test abnormal, catheterization done 12/15 with patent grafts but severe cardiomyopathy -Lifevest being placed per Cardiology recommendation 3. DMII- resumed home Janumet and Toujeo -SSI as needed -Held metformin for 48 hours after cardiac cath 4. Chronic systolic congestive heart failure secondary to ischemic cardiomyopathy with EF 30% -12/18 Life vest being placed today, continue beta hoa, ACEI, ASA and statin 5. Syncope- likely due to combination of poor intake and poor EF with orthostatic hypotension -After syncopal episode this morning review notes sinus tach on monitor at time of episode, blood sugar 160, blood pressure with significant drop between lying and standing and heart rate with significant increase between lying and sitting -BNP, BMP, CBC, troponin and CXR ordered- CXR unremarkable, labs pending, will likely give IVF bolus if BNP not significantly elevated -Stop hyoscyamine as anticholinergic may increase risk of tachycardia and weakness -Life vest as noted above and will continue to evaluate abdominal issues to improve oral intake -12/17 no further episodes Chief Complaint/HPI Chief Complaint/HPI Patient came to ER after initially starting with nausea and vomiting overnight. He stayed home from work on Thursday and continued to hav vomiting and inability to keep down even water. Thursday afternoon he started to note some right sided chest pain and called EMS. He had a recent CABG. He is feeling somewhat better today, had some cream of wheat for breakfast which has stayed down. He denies fever, diarrhea. He did have some abdominal cramping along with the noted issues. Discharge Summary-Simple/Stand Procedures Cardiac catheterization Consultations Discharge Physical Examination Allergies: Coded Allergies: No Known Drug Allergies (Unverified , 05/10/12) Vitals & I&Os Vital Sign - Last 12Hours Date Time Temp Pulse Resp B/P (MAP) Pulse Ox O2 Delivery O2 Flow Rate FiO2 12/18/16 08:08 103 12/18/16 08:00 97.7 18 101/71 98 Room Air 12/14/16 20:32 2.00 Intake and Output 12/18/16 00:00 Intake Total 1340 ml Output Total 1200 ml Balance 140 ml General Appearance: Alert, No Acute Distress Respiratory: Clear to Auscultation, Normal Air Movement Cardiovascular: Regular Rate, No Murmurs Abdominal: Normal Bowel Sounds, Soft, No Tenderness Neuro: Normal Speech Psych/Mental Status: Mental Status NL Hospital Course See final discharge diagnosis. Labs Laboratory Tests Test 12/16/16 15:29 12/16/16 18:30 12/17/16 05:27 12/17/16 06:04 Range/Units Glucometer 277 H 157 H 159 H 70-110 MG/DL Magnesium Level 1.5 L 1.8-2.4 MG/DL Test 12/17/16 06:09 12/17/16 09:59 12/17/16 16:50 12/17/16 21:24 Range/Units White Blood Count 8.2 4.3-11.0 10^3/uL Red Blood Count 4.14 L 4.35-5.85 10^6/uL Hemoglobin 11.9 L 13.3-17.7 G/DL Hematocrit 36 L 40-54 % Mean Corpuscular Volume 87 80-99 FL Mean Corpuscular Hemoglobin 29 25-34 PG Mean Corpuscular Hemoglobin Concent 33 32-36 G/DL Red Cell Distribution Width 13.9 10.0-14.5 % Platelet Count 314 130-400 10^3/uL Mean Platelet Volume 9.0 7.4-10.4 FL Sodium Level 136 135-145 MMOL/L Potassium Level 3.4 L 3.6-5.0 MMOL/L Chloride Level 101 98-107 MMOL/L Carbon Dioxide Level 26 21-32 MMOL/L Anion Gap 9 5-14 MMOL/L Blood Urea Nitrogen 8 7-18 MG/DL Creatinine 0.70 0.60-1.30 MG/DL Estimat Glomerular Filtration Rate > 60 BUN/Creatinine Ratio 11 Glucose Level 177 H 70-105 MG/DL Calcium Level 8.7 8.5-10.1 MG/DL Total Bilirubin 0.6 0.1-1.0 MG/DL Aspartate Amino Transf (AST/SGOT) 13 5-34 U/L Alanine Aminotransferase (ALT/SGPT) 13 0-55 U/L Alkaline Phosphatase 52 40-136 U/L Total Protein 6.2 L 6.4-8.2 G/DL Albumin 3.7 3.2-4.5 G/DL Glucometer 267 H 135 H 189 H 70-110 MG/DL Test 12/18/16 06:06 12/18/16 09:44 12/18/16 09:45 Range/Units Glucometer 233 H 234 H 70-110 MG/DL White Blood Count 10.7 4.3-11.0 10^3/uL Red Blood Count 4.50 4.35-5.85 10^6/uL Hemoglobin 13.0 L 13.3-17.7 G/DL Hematocrit 39 L 40-54 % Mean Corpuscular Volume 86 80-99 FL Mean Corpuscular Hemoglobin 29 25-34 PG Mean Corpuscular Hemoglobin Concent 34 32-36 G/DL Red Cell Distribution Width 13.9 10.0-14.5 % Platelet Count 335 130-400 10^3/uL Mean Platelet Volume 9.0 7.4-10.4 FL Sodium Level 132 L 135-145 MMOL/L Potassium Level 3.7 3.6-5.0 MMOL/L Chloride Level 98 98-107 MMOL/L Carbon Dioxide Level 23 21-32 MMOL/L Anion Gap 11 5-14 MMOL/L Blood Urea Nitrogen 10 7-18 MG/DL Creatinine 0.81 0.60-1.30 MG/DL Estimat Glomerular Filtration Rate > 60 BUN/Creatinine Ratio 12 Glucose Level 272 H 70-105 MG/DL Calcium Level 9.4 8.5-10.1 MG/DL Magnesium Level 1.7 L 1.8-2.4 MG/DL Radiology Reviewed CXR 12/13: no acute changes CXR 12/16: no acute changes Discharge Instructions to patient/family Please see electonic discharge instructions given to patient. Discharge Medications Reviewed and agree with Discharge Medication list on patient's Discharge Instruction sheet Clinical Quality Measures AMI/AHF: ASA po Prior to arrival: Yes DVT/VTE Risk/Contraindication: Risk Factor Score Per Nursin RFS Level Per Nursing on Admit: 2=Moderate Copy Copies To 1: EILEEN Posada BETHANY N MD Dec 18, 2016 11:55 am
[2016-12-19] MEDS ORDERED: meTOproloL SUCCINATE 50 MG (TOPROL XL) TAB PO SCH (09:00)
--- OUTSIDE RECORDS SUMMARY | 2017-01-18 05:21 | XMS REPORT ---
Author SHAWNEE Jaimes [facility] eClinicalWorks Address Unknown Phone Unavailable Care Team Providers Care Ward Service Supervisor Name Role Phone SHAWNEE MANRIQUE CP Unavailable [...] Office Visit, Est Pt., Level 4 CPT-4 10627 Jul 05, 2015 Vital Signs Date/Time: Jul 05, 2015 Temperature 98.2 F Weight 154 lbs Height 64 in BMI 26.43 Index Blood Pressure Diastolic 84 mmHg Blood Pressure Systolic 132 mmHg Cardiac Monitoring Heart Rate 80 bpm Results No Known Results Summary Purpose eClinicalWorks Submission
== END 2016-12-18 12:41 | disposition home or self-care (01) ==
LOC: EDUNIT# 17:09 → ER 17:10 → 4TH 18:14 → UNDOADMOB 18:14 → ER 19:34 → CATH 19:35 → 4TH 19:35 → ICU 12-15 12:15 → 4TH 12-15 16:45 → ICU 12-15 16:45 → UNDODISOB 12-18 12:41 → CATH 12-18 12:41
PROVIDERS: ATTEND Family Medicine
DX: I25.10 Atherosclerotic heart disease of native coronary artery without angina pectoris (principal); I25.82 Chronic total occlusion of coronary artery; R11.2 Nausea with vomiting, unspecified; I50.22 Chronic systolic (congestive) heart failure; I25.5 Ischemic cardiomyopathy; R55 Syncope and collapse; E11.9 Type 2 diabetes mellitus without complications; I25.2 Old myocardial infarction; I10 Essential (primary) hypertension; E78.5 Hyperlipidemia, unspecified; Z95.1 Presence of aortocoronary bypass graft; Z79.4 Long term (current) use of insulin; Z79.899 Other long term (current) drug therapy
CPT/HCPCS: 36415; 71010; 76705; 78452; 80048; 80053; 80061; 82550; 82962; 83690; 83735; 83874; 83880; 84484; 85025; 85027; 85379; 85610; 85730; 93005; 93017; 93041; 93306; 93459; 96374; G0378

== ENCOUNTER → 2017-02-25 | Outpatient (CLI) | payer OTHER ==
[~2017-02-25] MED LIST changes: +ASPI-586 PO; +ATOR80TA64 PO; +CARV12.53 PO; +CLOP75TA28 PO; +INSU300I SQ; +LISI-556 PO; +METO-270 PO; +METO-272 PO; +NITR12SP5 TL; +PANT40TA3 PO; +PREG50CA2 PO; +SITA1TAB2 PO; +SUCR1TAB PO; +TRAM50TA2 PO
== END ==
LOC: CARD 13:31
PROVIDERS: ATTEND Internal Medicine Cardiovascular Disease
DX: I25.810 Atherosclerosis of coronary artery bypass graft(s) without angina pectoris (principal)
CPT/HCPCS: 93306

== ENCOUNTER 2017-03-18 10:36 | Emergency (ER) | payer OTHER ==
[~2017-03-18] VITALS: Ht 162.6 cm; Wt 57.6 kg
[2017-03-18] MEDS ORDERED: NS (IVPB) 250 ML IV ONE (11:04)
--- NOTE | 2017-03-18 11:04 | ED Syncope ---
General Chief Complaint: Dizziness/Syncope Stated Complaint: LOW BLOOD PRES/WEAKNESS/DIZZY Source of Information: Patient, Caregiver (Adrien Wiggins) History of Present Illness Time Seen by Provider: 10:52 Initial Comments Patient was sent over from [facility] clinic today area and he was seen by Adrien Wiggins as he was working there today and had some lightheadedness and near-syncope after bending over cleaning a toilet. He immediately sat down and did not pass out nor fall. Top reports the patient's had AK 3 weeks ago and is being cared for by Dr. Perez. Orthostatics were positive at the time with a systolic of 80 lying down and then 76 upon standing. He was given a liter of normal saline and EKG was unremarkable chest x-ray was obtained and was also unremarkable according to Adrien. He did however state he heard some inspiratory rhonchus on the left lower lobe. Also of note the patient's last ejection fraction was 35% on echo. Patient reports he is having no chest pain or shortness of breath and is feeling better now that he was. He has no longer dizzy. He has no tinnitus. He has no nausea or sweats or recent illness or exposure to illness nor travel [place]. The patient denies any edema or weight gain recently. He also reports that his ejection fraction had recovered up to 40-45% per recent visit with Dr. Perez. Mr. Wiggins reported that he had spoke with the on-call physician, Dr. Xenia Ferreira and she would recommend the patient come to the ER for evaluation. Allergies and Home Medications Allergies Coded Allergies: No Known Drug Allergies (Unverified , 05/10/12) Home Medications Aspirin 81 Mg Tablet., 81 MG PO DAILY, (Reported) Atorvastatin Calcium 80 Mg Tablet, 80 MG PO HS, (Reported) Clopidogrel Bisulfate 75 Mg Tablet, 75 MG PO DAILY, (Reported) Insulin Glargine,Hum.rec.anlog 300 Unit/1 Ml Insuln.pen, 15 UNIT SQ DAILY, ( Reported) Lisinopril 5 Mg Tablet, 2.5 MG PO DAILY, (Reported) TAKES 1/2 (5MG) TABLET Metoprolol Succinate 50 Mg Tab.er.24h, 50 MG PO DAILY, #30 Ref 0 Prescribed by: TIM CHRISTINE on 12/18/16 1055 Nitroglycerin 12 Gm [place], 1 SPRAY TL UD PRN for CHEST PAIN, (Reported) Pantoprazole Sodium 40 Mg Tablet., 40 MG PO DAILY@0700, #30 Ref 0 Prescribed by: TIM CHRISTINE on 12/17/16 1039 Sitagliptin Phos/Metformin HCl 1 Tab Tablet, 1 TAB PO BID, (Reported) Sucralfate 1 Gm Tablet, 1 GM PO ACHS, #120 Ref 0 Prescribed by: TIM CHRISTINE on 12/17/16 1039 Constitutional: No chills, No fever, No malaise EENTM: No ear pain, No mouth pain, No nose pain Respiratory: cough (2-3 days dry nonproductive occasional), short of breath ( mild), No wheezing Cardiovascular: see HPI, No chest pain, No edema (chest tightness), No syncope (near syncope) Gastrointestinal: No abdominal pain, No diarrhea, No nausea, No vomiting Genitourinary: No discharge, No dysuria Musculoskeletal: No back pain, No joint pain Skin: No pruritus, No rash Psychiatric/Neurological: Denies Headache, Denies Numbness Past Oqgkmig-Kpnyfe-Ecrelx Hx Patient Social History Alcohol Use: Denies Use Recreational Drug Use: No Smoking Status: Never a Smoker Recent Foreign Travel: No Contact w/Someone Who Travel: No Recent Hopitalizations: Yes (CABG in ) Immunizations Up To Date Tetanus Booster (TDap): More than 5yrs Date of Influenza Vaccine: Jun 07, 2016 Seasonal Allergies Seasonal Allergies: No Surgeries HX Surgeries: Yes (C5 WITH A BONE GRAFT INTO HIP AND PLACED IN NECK) Surgeries: CABG Respiratory Hx Respiratory Disorders: No Cardiovascular Hx Cardiac Disorders: Yes Cardiac Disorders: Coronary Artery Disease, Hypertension Neurological Hx Neurological Disorders: No Genitourinary Hx Genitourinary Disorders: No Gastrointestinal Hx Gastrointestinal Disorders: No Musculoskeletal Hx Musculoskeletal Disorders: No Endocrine Hx Endocrine Disorders: Yes (DIET CONTROLLED DIABETES) Endocrine Disorders: Diabetes, Non-Insulin dep Cancer Hx Cancer: No Psychosocial Behavioral Health Disorders: Anxiety Family Medical History Significant Family History: Heart Disease, CAD Over 55 Years Old, Diabetes Family Medial History: Diabetes mellitus 19 FATHER 19 MOTHER FH: CHF (congestive heart failure) 19 FATHER Physical Exam Vital Signs Vital Sign - Last 12Hours 03/18/17 10:36 Temp 98.2 Pulse 100 Resp 18 B/P (MAP) 104/68 Pulse Ox 99 O2 Delivery Room Air Capillary Refill : General Appearance: No Apparent Distress, WD/WN, Thin HEENT: PERRL/EOMI, Pharynx Normal (mucosa is mildly dry.) Neck: Normal Inspection, Non Tender, Supple Cardiovascular: Regular Rate, Rhythm, No Edema, No JVD, Normal Peripheral Pulses Respiratory: Chest Non Tender, Lungs Clear, Normal Breath Sounds, No Accessory Muscle Use Gastrointestinal: Normal Bowel Sounds, Non Tender, Soft Extremities: Normal Capillary Refill, No Pedal Edema Neurologic/Psychiatric: Alert, Oriented x3 Cranial Nerves: Normal Hearing, Normal Speech, PERRL Skin: Normal Color, Warm/Dry Lymphatic: No Adenopathy Progress/Results/Core Measures Results/Orders Lab Results Laboratory Tests Test 03/18/17 10:50 03/18/17 13:45 03/18/17 13:52 Range/Units White Blood Count 10.2 4.3-11.0 10^3/uL Red Blood Count 3.81 L 4.35-5.85 10^6/uL Hemoglobin 11.3 L 13.3-17.7 G/DL Hematocrit 34 L 40-54 % Mean Corpuscular Volume 90 80-99 FL Mean Corpuscular Hemoglobin 30 25-34 PG Mean Corpuscular Hemoglobin Concent 33 32-36 G/DL Red Cell Distribution Width 14.3 10.0-14.5 % Platelet Count 298 130-400 10^3/uL Mean Platelet Volume 9.1 7.4-10.4 FL Neutrophils (%) (Auto) 76 H 42-75 % Lymphocytes (%) (Auto) 16 12-44 % Monocytes (%) (Auto) 8 0-12 % Eosinophils (%) (Auto) 0 0-10 % Basophils (%) (Auto) 0 0-10 % Neutrophils # (Auto) 7.7 1.8-7.8 X 10^3 Lymphocytes # (Auto) 1.7 1.0-4.0 X 10^3 Monocytes # (Auto) 0.8 0.0-1.0 X 10^3 Eosinophils # (Auto) 0.0 0.0-0.3 10^3/uL Basophils # (Auto) 0.0 0.0-0.1 10^3/uL Sodium Level 138 135-145 MMOL/L Potassium Level 4.5 3.6-5.0 MMOL/L Chloride Level 106 98-107 MMOL/L Carbon Dioxide Level 22 21-32 MMOL/L Anion Gap 10 5-14 MMOL/L Blood Urea Nitrogen 20 H 7-18 MG/DL Creatinine 0.92 0.60-1.30 MG/DL Estimat Glomerular Filtration Rate > 60 BUN/Creatinine Ratio 22 Glucose Level 133 H 70-105 MG/DL Calcium Level 9.1 8.5-10.1 MG/DL Magnesium Level 1.5 L 1.8-2.4 MG/DL Total Bilirubin 0.6 0.1-1.0 MG/DL Aspartate Amino Transf (AST/SGOT) 15 5-34 U/L Alanine Aminotransferase (ALT/SGPT) 12 0-55 U/L Alkaline Phosphatase 43 40-136 U/L Troponin I < 0.30 < 0.30 <0.30 NG/ML B-Type Natriuretic Peptide 105.3 H <100.0 PG/ML Total Protein 6.8 6.4-8.2 GM/DL Albumin 4.1 3.2-4.5 GM/DL Urine Color YELLOW Urine Clarity CLEAR Urine pH 5 5-9 Urine Specific [place] 1.020 1.016-1.022 Urine Protein 2+ H NEGATIVE Urine Glucose (UA) NEGATIVE NEGATIVE Urine Ketones NEGATIVE NEGATIVE Urine Nitrite NEGATIVE NEGATIVE Urine Bilirubin NEGATIVE NEGATIVE Urine Urobilinogen NORMAL NORMAL MG/DL Urine Leukocyte Esterase NEGATIVE NEGATIVE Urine RBC (Auto) NEGATIVE NEGATIVE Urine RBC NONE /HPF Urine WBC 0-2 /HPF Urine Crystals NONE /LPF Urine Bacteria TRACE /HPF Urine Casts PRESENT /LPF Urine Hyaline Casts 10-25 H /LPF Urine Mucus SMALL H /LPF Urine Culture Indicated NO My Orders Orders - LALI CHRISTOPHER BNP (03/18/17 11:04) Cbc With Automated Diff (03/18/17 11:04) Comprehensive Metabolic Panel (03/18/17 11:04) Magnesium (03/18/17 11:04) Troponin I (03/18/17 11:04) Ua Culture If Indicated (03/18/17 11:04) Chest 1 View, Ap/Pa Only (03/18/17 11:04) Saline Lock/Iv-Start (03/18/17 11:04) Ns (Ivpb) (Sodium Chloride 0.9%) (03/18/17 11:04) Ekg Tracing (03/18/17 11:27) Magnesium Oxide Tablet (Mag Ox Tablet) (03/18/17 11:45) Troponin I (03/18/17 13:50) Medications Given in ED Current Medications Medications Dose Ordered Sig/Sonny Route Start Time Stop Time Status Last Admin Dose Admin Magnesium Oxide 400 mg ONCE ONCE PO 03/18/17 11:45 03/18/17 11:46 DC 03/18/17 11:54 400 MG Sodium Chloride 250 ml @ 0 mls/hr Q0M ONCE IV 03/18/17 11:04 03/18/17 11:07 DC 03/18/17 11:22 250 MLS/HR Vital Signs/I&O Vital Sign - Last 12Hours 03/18/17 10:36 Temp 98.2 Pulse 100 Resp 18 B/P (MAP) 104/68 Pulse Ox 99 O2 Delivery Room Air Progress Note #1: Time: 11:33 Progress Note Orthostatic hypotension on a very low-dose of lisinopril. His cough may be from lisinopril or other upper respiratory symptoms. Looks like he has responded pretty well to the liter of fluids so we will just work him up make sure there is not a cardiogenic reason given his recent AK 3 weeks ago. We went ahead and reobtained an x-ray given his breath sounds were normal but there were apparently rhonchi heard in the clinic and after fluids if there was an infiltrate that was subtle it may be easier to see after he is received IV fluids. Since he's been here his blood pressure is up and running in the upper 90s to low 100s systolic which is good. He is asymptomatic at this time. We will gently add another 500 cc of saline given his recent reduced ejection fraction. However clinically he looks dry. He is not on any diuretics. He is on a pretty good dose of beta hoa and this may be indication that he needs to come back on the dose. We'll give by mouth magnesium 1 and have him follow-up as needed outpatient. Progress Note #2: Time: 14:25 Progress Note Delta T negative. We'll call Dr. Perez's office and get him an appointment. We' ll have his metoprolol dose cut in Half until he sees the construction supervisor/carpenter. ECG Initial ECG Impression Date: Mar 18, 2017 Initial ECG Impression Time: 10:46 Initial ECG Rate: 92 Initial ECG Rhythm: Normal Sinus Initial ECG Intervals: Normal Initial ECG Impression: Nonspecific Changes Initial ECG Comparisson: Unchanged Comment No ST-T wave aberration Diagnostic Imaging Diagonstic Imaging: Xray Plain Films/CT/US/NM/MRI: chest Comments No acute cardiopulmonary processes noted. Sternal wires noted. Opacities over the heart shadow may indicate stents. NAME: MITZI JACOBSON MED REC#: [id number] PHYSICIAN: LALI CHRISTOPHER MD CC: VANE CARDOSO MD; LALI CHRISTOPHER Page 1 of 1 RADIOLOGY REPORT VIA [facility], [facility]. [place], [place] CC: VANE CARDOSO MD; LALI CHRISTOPHER Page 1 of 1 RADIOLOGY REPORT NAME: MITZI JACOBSON MED REC#: [id number] PT STATUS: REG ER : 1960 PHYSICIAN: LALI CHRISTOPHER MD ADMIT DATE: 03/18/17/ER Signed Date of Exam: 03/18/17 CHEST 1 VIEW, AP/PA ONLY Portable upright radiograph of the chest. Indication: Shortness of breath Findings: The lungs are clear. The heart is normal. No effusion or pneumothorax Mediastinum and sandy appear markable. Sternotomy wires and the post-CABG changes are seen. Impression: Unremarkable exam. Dictated by: Dictated on workstation # [id number] Dict: 03/18/17 1139 Trans: 03/18/17 1144 Interpreted by: VANE CARDOSO MD Electronically signed by: VANE CARDOSO MD 03/18/17 1144 Reviewed: Reviewed by Me Consults Consults : Consulting Physician: Kadeem HUANG MD Consults Notes 1145: Recommends a 3 hour delta T. If it's okay and the patient is asymptomatic then could follow up with Dr. Huang in the clinic as Dr. Perez is out of town. Troponin scheduled for 1350 Departure Impression Impression: Primary Impression: Near syncope Additional Impression: Chest tightness Disposition: 01 HOME, SELF-CARE Condition: Stable Departure-Patient Inst. Decision time for Depature: 14:26 Referrals: MERCEDES SLOAN DO (PCP) Primary Care Physician SHAWNEE MANRIQUE (Family) Primary Care Physician Patient Instructions: Orthostatic Hypotension (DC) Add. Discharge Instructions: You have experienced near fainting or near-syncope secondary to orthostatic hypotension which could be a result of being dehydrated, comfort hit about the medications are on. I want you to take one half the dose of your metoprolol tonight and tomorrow until you see Dr. Perez's nurse practitioner tomorrow. Your appointment time is 1100. I want you to drink adequate fluids by mouth and return to the ER if you're having new or worrisome symptoms such as chest pain or shortness of breath. All discharge instructions reviewed with patient and/or family. Voiced understanding. Work/School Note: Work Release Form Date Seen in the Emergency Department: Mar 18, 2017 Return to Work: Mar 20, 2017 Restrictions: No Restrictions Copy Copies To 1: MERCEDES SLOAN DO Copies To 2: GILL PEREZ MD, TITUS J Mar 18, 2017 11:04
[2017-03-18 11:15] LABS: BASOPHILS % (AUTO) 0 % (0-10); EOSINOPHILS % (AUTO) 0 % (0-10); LYMPHOCYTES # (AUTO) 1.7 X 10^3 (1.0-4.0); LYMPHOCYTES % (AUTO) 16 % (12-44); MEAN CORPUSCULAR HEMOGLOBIN 30 PG (25-34); MEAN CORPUSCULAR HGB CONC 33 G/DL (32-36); MEAN CORPUSCULAR VOLUME 90 FL (80-99); MEAN PLATELET VOLUME 9.1 FL (7.4-10.4); MONOCYTES # (AUTO) 0.8 X 10^3 (0.0-1.0); MONOCYTES % (AUTO) 8 % (0-12); NEUTROPHILS # (AUTO) 7.7 X 10^3 (1.8-7.8); NEUTROPHILS % (AUTO) 76 % (42-75); PLATELET COUNT 298 10^3/uL (130-400); RED BLOOD COUNT 3.81 10^6/uL (4.35-5.85); RED CELL DISTRIBUTION WIDTH 14.3 % (10.0-14.5); WHITE BLOOD COUNT 10.2 10^3/uL (4.3-11.0)
[2017-03-18 11:28] LABS: ALANINE AMINOTRANSFERASE 12 U/L (0-55); ALBUMIN 4.1 GM/DL (3.2-4.5); ANION GAP 10 MMOL/L (5-14); ASPARTATE AMINO TRANSFERASE 15 U/L (5-34); BILIRUBIN,TOTAL 0.6 MG/DL (0.1-1.0); BLOOD UREA NITROGEN 20 MG/DL (7-18); BUN/CREATININE RATIO 22; CALCIUM 9.1 MG/DL (8.5-10.1); CARBON DIOXIDE 22 MMOL/L (21-32); CHLORIDE 106 MMOL/L (98-107); CREATININE SERUM 0.92 MG/DL (0.60-1.30); GFR ESTIMATED > 60; GLUCOSE 133 MG/DL (70-105); MAGNESIUM 1.5 MG/DL (1.8-2.4); POTASSIUM 4.5 MMOL/L (3.6-5.0); SODIUM 138 MMOL/L (135-145); TOTAL PROTEIN 6.8 GM/DL (6.4-8.2)
[2017-03-18 11:33] LABS: TROPONIN I < 0.30 NG/ML (<0.30)
[2017-03-18] MEDS ORDERED: MAGNESIUM OXIDE (MAG-OX)400 MG TAB PO ONE (11:45)
--- NOTE | 2017-03-18 11:46 | Diagnostic Imaging Report ---
Portable upright radiograph of the chest. Indication: Shortness of breath Findings: The lungs are clear. The heart is normal. No effusion or pneumothorax Mediastinum and sandy appear markable. Sternotomy wires and the post-CABG changes are seen. Impression: Unremarkable exam. Dictated by: Dictated on workstation # [id number]
[2017-03-18 13:59] LABS: BILIRUBIN,URINE NEGATIVE (NEGATIVE); KETONES,URINE NEGATIVE (NEGATIVE); LEUKOCYTE ESTERASE ,URINE NEGATIVE (NEGATIVE); NITRITE,URINE NEGATIVE (NEGATIVE); PH,URINE 5 (5-9); PROTEIN,URINE 2+ (NEGATIVE); UROBILINOGEN,URINE NORMAL (NORMAL)
[2017-03-18 14:14] LABS: WBC,URINE 0-2 /HPF
[2017-03-18 18:20] VITALS: BP 163/97
== END 2017-03-18 14:55 | disposition home or self-care (01) ==
LOC: EDUNIT# 10:36 → ER 10:38
DX: R07.89 Other chest pain (principal); R55 Syncope and collapse; I21.3 ST elevation (STEMI) myocardial infarction of unspecified site; I10 Essential (primary) hypertension; E11.9 Type 2 diabetes mellitus without complications; F41.9 Anxiety disorder, unspecified; I25.10 Atherosclerotic heart disease of native coronary artery without angina pectoris; Z82.49 Family history of ischemic heart disease and other diseases of the circulatory system; Z79.82 Long term (current) use of aspirin; Z79.4 Long term (current) use of insulin; Z98.61 Coronary angioplasty status
CPT/HCPCS: 36415; 71010; 80053; 81000; 83735; 83880; 84484; 85025; 96360

== ENCOUNTER → 2017-08-28 | Outpatient (CLI) | payer OTHER ==
[~2017-08-28] MED LIST changes: +CATHETER FLUSH 10 ML SYR IV PRN; +IOHEXOL 350 MG/ML 100 ML (OMNIPAQUE 350) VIAL IV ONE; -METO-270 PO; -METO-272 PO; +METO-370 PO; +METO-387 PO; +NS 100 ML (IVPB) BAG IV ONE
[2017-08-28 11:51] LABS: BLOOD UREA NITROGEN 13 MG/DL (7-18); BUN/CREATININE RATIO 17; CREATININE SERUM 0.77 MG/DL (0.60-1.30); GFR ESTIMATED > 60
--- NOTE | 2017-08-28 14:57 | Diagnostic Imaging Report ---
EXAM: CT angiogram of the right forearm. INDICATION: Foreign body around the right wrist area. The patient has numbness and tingling in the third to fifth digits. FINDINGS: There is a 5 mm elongated very dense lesion seen in the subcutaneous fat, in the distal forearm abutting the ventral ulnar aspect of the distal ulna. There is no associated soft tissue hematoma, fluid collection or lesion seen. Not associated with osseous abnormality, as well. The ulnar and radial arteries are normal and they are away from this foreign body. This does not appear to be related to any of the tendons or muscles in the region. IMPRESSION: There is a 5 mm elongated dense metallic foreign body seen abutting the ventral ulnar aspect of the distal ulna, does not appear to impinge on the ulnar neurovascular bundle and is not associated with a surrounding soft tissue abnormality. Dictated by: Dictated on workstation # [id number]
== END ==
LOC: RAD 11:15
PROVIDERS: ATTEND Surgery
DX: S60.851A Superficial foreign body of right wrist, initial encounter (principal); R20.0 Anesthesia of skin; R20.2 Paresthesia of skin
CPT/HCPCS: 36415; 73206; 82565; 84520

== ENCOUNTER → 2019-02-03 | Outpatient (CLI) | payer OTHER ==
[~2019-02-03] MED LIST changes: -CATHETER FLUSH 10 ML SYR IV PRN; -IOHEXOL 350 MG/ML 100 ML (OMNIPAQUE 350) VIAL IV ONE; -NS 100 ML (IVPB) BAG IV ONE
== END | disposition home or self-care (01) ==
LOC: PREOP 05:46
PROVIDERS: ATTEND Surgery
DX: Z01.818 Encounter for other preprocedural examination (principal)

== ENCOUNTER → 2019-07-22 | Outpatient (CLI) | payer OTHER | LOC: CARD 08:33 | PROVIDERS: ATTEND Physician Assistant | DX: I08.1 Rheumatic disorders of both mitral and tricuspid valves (principal); I25.10 Atherosclerotic heart disease of native coronary artery without angina pectoris; I11.0 Hypertensive heart disease with heart failure; I50.9 Heart failure, unspecified | CPT/HCPCS: 93306 ==

== ENCOUNTER 2020-04-27 11:23 | Emergency (ER) | payer OTHER ==
[~2020-04-27] VITALS: Ht 170 cm; Wt 75.7 kg
[2020-04-27 11:23] VITALS: BP 145/91
[~2020-04-27 11:23] MED LIST changes: -METO-370 PO; -METO-387 PO; +METO50TA7 PO; +MTP25TSR PO; -TRAM50TA2 PO; +TRM50T PO
--- NOTE | 2020-04-27 11:42 | ED Chest Pain ---
General Chief Complaint: Chest Pain Stated Complaint: CHEST PAIN, L ARM PAIN History of Present Illness Date Seen by Provider: Apr 27, 2020 Time Seen by Provider: 11:25 Initial Comments 60 year old female presents for substernal chest pain that first occurred yesterday at 0930 and was intermittent through the day. He took one Nitro and it did improve, yesterday. It occurred again today at 0930, he was seen at walk in [facility], EKG was completed and ASA 324mg given. He did not take Nitro. He was referred here and states pain is better, /. He does report some personal issues that are increasing his stress/anxiety, he is attributing the pain to that. Denies N/V/D or diaphoresis with the pain. 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 On Plavix. 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 NTG SL RIGGING ENGINEER: No Associated Symptoms: No abdominal pain, No back pain, No diaphoresis, No fever/chills, No nausea/vomiting, No shortness of breath, No syncope Allergies and Home Medications Allergies Coded Allergies: shellfish derived (Verified Allergy, Unknown, 04/27/20) Home Medications Aspirin 81 Mg Tablet., 81 MG PO DAILY, (Reported) Atorvastatin Calcium 80 Mg Tablet, 80 MG PO HS, (Reported) Clopidogrel Bisulfate 75 Mg Tablet, 75 MG PO DAILY, (Reported) Insulin Glargine,Hum.rec.anlog 300 Unit/1 Ml Insuln.pen, 15 UNIT SQ DAILY, (Reported) Lisinopril 5 Mg Tablet, 2.5 MG PO DAILY, (Reported) TAKES 1/2 (5MG) TABLET Metoprolol Succinate 50 Mg Tab.er.24h, 50 MG PO DAILY Prescribed by: TIM CHRISTINE on 12/18/16 1055 Nitroglycerin 12 Gm [place], 1 SPRAY TL UD PRN for CHEST PAIN, (Reported) Pantoprazole Sodium 40 Mg Tablet., 40 MG PO DAILY@0700 Prescribed by: TIM CHRISTINE on 12/17/16 1039 Sitagliptin Phos/Metformin HCl 1 Tab Tablet, 1 TAB PO BID, (Reported) Sucralfate 1 Gm Tablet, 1 GM PO ACHS Prescribed by: TIM CHRISTINE on 12/17/16 1039 Patient Home Medication List Home Medication List Reviewed: Yes Review of Systems Review of Systems Constitutional: no symptoms reported, see HPI Respiratory: No Symptoms Reported, See HPI Cardiovascular: See HPI, Chest Pain All Other Systems Reviewed Negative Unless Noted: Yes Past Cvaisgi-Stltwe-Mixvfh Hx Past Med/Social Hx: Reviewed Nursing Past Med/Soc Hx Patient Social History Recent Hopitalizations: Yes (CABG in ) Immunizations Up To Date Tetanus Booster (TDap): More than 5yrs Date of Influenza Vaccine: Jun 07, 2016 Seasonal Allergies Seasonal Allergies: No Past Medical History Surgeries: Yes (C5 WITH A BONE GRAFT INTO HIP AND PLACED IN NECK) CABG Respiratory: No Cardiac: Yes Coronary Artery Disease, Hypertension Neurological: No Genitourinary: No Gastrointestinal: No Musculoskeletal: No Endocrine: Yes (DIET CONTROLLED DIABETES) Diabetes, Non-Insulin dep HEENT: No Cancer: No Psychosocial: Yes Anxiety Integumentary: No Family Medical History Diabetes mellitus 19 FATHER 19 MOTHER FH: CHF (congestive heart failure) 19 FATHER Heart Disease, CAD Over 55 Years Old, Diabetes Physical Exam Vital Signs Vital Signs - First Documented 04/27/20 11:23 Temp 36.8 Pulse 110 Resp 24 B/P (MAP) 145/91 (109) Pulse Ox 97 Capillary Refill : Height, Weight, BMI Height: 5'4.00" Weight: 127lbs. 8.0oz. 57.655382rx; 22.6 BMI Method:Stated General Appearance: No Apparent Distress, WD/WN HEENT: PERRL/EOMI, TMs Normal, Normal ENT Inspection, Pharynx Normal Neck: Full Range of Motion, Normal Inspection, Non Tender, Supple Respiratory: Chest Non Tender, Lungs Clear, Normal Breath Sounds Cardiovascular: Regular Rate, Rhythm, No Murmur, Normal Peripheral Pulses Gastrointestinal: Normal Bowel Sounds, Non Tender, Soft Extremity: Normal Capillary Refill, Normal Inspection, Normal Range of Motion, Pedal Edema (1+ chronic, no change) Neurologic/Psychiatric: Alert, Oriented x3, No Motor/Sensory Deficits, Normal Mood/Affect Skin: Normal Color, Warm/Dry; No Diaphoresis Progress/Results/Core Measures Results/Orders Lab Results Laboratory Tests Test 04/27/20 11:30 Range/Units White Blood Count 8.2 4.3-11.0 10^3/uL Red Blood Count 4.11 L 4.35-5.85 10^6/uL Hemoglobin 13.0 L 13.3-17.7 G/DL Hematocrit 39 L 40-54 % Mean Corpuscular Volume 95 80-99 FL Mean Corpuscular Hemoglobin 32 25-34 PG Mean Corpuscular Hemoglobin Concent 33 32-36 G/DL Red Cell Distribution Width 13.0 10.0-14.5 % Platelet Count 245 130-400 10^3/uL Mean Platelet Volume 9.5 7.4-10.4 FL Neutrophils (%) (Auto) 67 42-75 % Lymphocytes (%) (Auto) 22 12-44 % Monocytes (%) (Auto) 10 0-12 % Eosinophils (%) (Auto) 1 0-10 % Basophils (%) (Auto) 0 0-10 % Neutrophils # (Auto) 5.5 1.8-7.8 X 10^3 Lymphocytes # (Auto) 1.8 1.0-4.0 X 10^3 Monocytes # (Auto) 0.8 0.0-1.0 X 10^3 Eosinophils # (Auto) 0.1 0.0-0.3 10^3/uL Basophils # (Auto) 0.0 0.0-0.1 10^3/uL Prothrombin Time 13.5 12.2-14.7 SEC INR Comment 1.0 0.8-1.4 Activated Partial Thromboplast Time 27 24-35 SEC Sodium Level 135 135-145 MMOL/L Potassium Level 4.5 3.6-5.0 MMOL/L Chloride Level 103 98-107 MMOL/L Carbon Dioxide Level 24 21-32 MMOL/L Anion Gap 8 5-14 MMOL/L Blood Urea Nitrogen 12 7-18 MG/DL Creatinine 0.95 0.60-1.30 MG/DL Estimat Glomerular Filtration Rate > 60 BUN/Creatinine Ratio 13 Glucose Level 248 H 70-105 MG/DL Calcium Level 9.1 8.5-10.1 MG/DL Corrected Calcium 8.9 8.5-10.1 MG/DL Magnesium Level 1.5 L 1.6-2.4 MG/DL Total Bilirubin 0.4 0.1-1.0 MG/DL Aspartate Amino Transf (AST/SGOT) 28 5-34 U/L Alanine Aminotransferase (ALT/SGPT) 29 0-55 U/L Alkaline Phosphatase 71 40-136 U/L Myoglobin 29.7 10.0-92.0 NG/ML Troponin I < 0.028 <0.028 NG/ML B-Type Natriuretic Peptide 316.9 H <100.0 PG/ML Total Protein 7.3 6.4-8.2 GM/DL Albumin 4.3 3.2-4.5 GM/DL My Orders Orders - RANDAL HODGSON [employer] Cbc With Automated Diff (04/27/20:25) Magnesium (04/27/20 11:25) Chest 1 View, Ap/Pa Only (04/27/20 11:25) Ekg Tracing (04/27/20:) Comprehensive Metabolic Panel (04/27/20:) Myoglobin Serum (04/27/20:) Protime With Inr (04/27/20:) Partial Thromboplastin Time (04/27/20 11:) O2 (04/27/20:) Monitor-Rhythm Ecg Trace Only (04/27/20 11:) Ed Iv/Invasive Line Start (04/27/20 11:25) BNP (04/27/20 11:25) Troponin I (04/27/20 11:25) Vital Signs/I&O 04/27/20 11:23 Temp 36.8 Pulse 110 Resp 24 B/P (MAP) 145/91 (109) Pulse Ox 97 Progress Progress Note : Time: 11:25 Progress Note Patient seen and evaluated, will obtain labs, chest x-ray and EKG. We'll hold on aspirin since that was given proximally 30 minutes ago. Patient is not currently experiencing pain, will hold on Nitro. 1210 patient continues to be pain free. No request. 1245 no complaints, awaiting CMP and Troponin, lab reports machines are down and doing by hand. 1315 Labs WNL, patient continues to be pain free. Talking to family by phone and addressing personal issues causing stress. Discharge instructions and return precautions reviewed with the patient. Initial ECG Impression Date: Apr 27, 2020 Initial ECG Impression Time: 11:27 Initial ECG Rate: 105 Initial ECG Rhythm: S.Tach Initial ECG Intervals: Normal Initial ECG Intervals [place] 155, QRSD 94, QT 319, QTC 422. [place] P 46, QRS -34, T 57. Initial ECG Impression: Normal Diagnostic Imaging Diagonstic Imaging: Xray Plain Films/CT/US/NM/MRI: chest Comments NAME: MITZI JACOBSON [facility] REC#: [id number] PT STATUS: REG ER : 1960 PHYSICIAN: RANDAL HODGSON ADMIT DATE: 04/27/20/ER Draft Date of Exam:04/27/20 CHEST 1 VIEW, AP/PA ONLY INDICATION: Chest pain Portable chest 12:21 PM There are postoperative changes from CABG surgery. Heart size and pulmonary vascularity are normal. Lungs are clear. There are no effusions or pneumothoraces. IMPRESSION: Negative chest. Dictated on workstation # [id number] Dict: 04/27/20 1231 Trans: 04/27/[address] [facility] [id number] Interpreted by: DOMINGUEZ RUTH MD Electronically signed by: Reviewed: Reviewed by Me Departure Impression Primary Impression: Chest pain Qualified Codes: R07.9 - Chest pain, unspecified Additional Impression: Angina pectoris syndrome Disposition: 01 HOME, SELF-CARE Condition: Improved Departure-Patient Inst. Decision time for Depature: 13:15 Referrals: RAMÓN VALADEZ MD (PCP/Family) Primary Care Physician GILL PEREZ MD Patient Instructions: Angina (DC) Add. Discharge Instructions: Continue to take all your home medications as prescribed. Take aspirin 81 mg 1 tablet daily. Use nitroglycerin at onset of chest pain and repeat up to 3 doses if pain does not resolve. Return to the emergency department for chest pain not relieved with nitroglycerin. Schedule follow-up appointment with Dr. Perez. Return to the emergency department for new, urgent health care needs. All discharge instructions reviewed with patient and/or family. Voiced understanding. RANDAL HODGSON Apr 27, 2020 11:42
[2020-04-27 12:00] LABS: HEMATOCRIT 39 % (40-54); LYMPHOCYTES % (AUTO) 22 % (12-44); MEAN CORPUSCULAR HEMOGLOBIN 32 PG (25-34); MEAN CORPUSCULAR HGB CONC 33 G/DL (32-36); MEAN CORPUSCULAR VOLUME 95 FL (80-99); MEAN PLATELET VOLUME 9.5 FL (7.4-10.4); NEUTROPHILS % (AUTO) 67 % (42-75); PLATELET COUNT 245 10^3/uL (130-400); WHITE BLOOD COUNT 8.2 10^3/uL (4.3-11.0)
[2020-04-27 12:01] LABS: BASOPHILS % (AUTO) 0 % (0-10); EOSINOPHILS # (AUTO) 0.1 10^3/uL (0.0-0.3); EOSINOPHILS % (AUTO) 1 % (0-10); LYMPHOCYTES # (AUTO) 1.8 X 10^3 (1.0-4.0); MONOCYTES # (AUTO) 0.8 X 10^3 (0.0-1.0); MONOCYTES % (AUTO) 10 % (0-12); NEUTROPHILS # (AUTO) 5.5 X 10^3 (1.8-7.8)
[2020-04-27 12:03] LABS: PROTHROMBIN TIME PATIENT 13.5 SEC (12.2-14.7)
--- NOTE | 2020-04-27 12:33 | Diagnostic Imaging Report ---
INDICATION: Chest pain Portable chest 12:21 PM There are postoperative changes from CABG surgery. Heart size and pulmonary vascularity are normal. Lungs are clear. There are no effusions or pneumothoraces. IMPRESSION: Negative chest. Dictated by: Dictated on workstation # [id number]
[2020-04-27 12:57] LABS: BUN/CREATININE RATIO 13; CALCIUM 9.1 MG/DL (8.5-10.1); CARBON DIOXIDE 24 MMOL/L (21-32); CHLORIDE 103 MMOL/L (98-107); CREATININE SERUM 0.95 MG/DL (0.60-1.30); GFR ESTIMATED > 60; GLUCOSE 248 MG/DL (70-105); MAGNESIUM 1.5 MG/DL (1.6-2.4); POTASSIUM 4.5 MMOL/L (3.6-5.0); SODIUM 135 MMOL/L (135-145)
[2020-04-27 12:58] LABS: ALANINE AMINOTRANSFERASE 29 U/L (0-55); ALBUMIN 4.3 GM/DL (3.2-4.5); ALKALINE PHOSPHATASE 71 U/L (40-136); BILIRUBIN,TOTAL 0.4 MG/DL (0.1-1.0); TOTAL PROTEIN 7.3 GM/DL (6.4-8.2)
== END 2020-04-27 13:30 | disposition home or self-care (01) ==
LOC: EDUNIT# 11:23 → ER 11:26
DX: I20.9 Angina pectoris, unspecified (principal); I10 Essential (primary) hypertension; E11.9 Type 2 diabetes mellitus without complications; Z95.9 Presence of cardiac and vascular implant and graft, unspecified; Z95.1 Presence of aortocoronary bypass graft; Z79.02 Long term (current) use of antithrombotics/antiplatelets; Z79.82 Long term (current) use of aspirin; Z79.4 Long term (current) use of insulin; Z82.49 Family history of ischemic heart disease and other diseases of the circulatory system
CPT/HCPCS: 36415; 71045; 80053; 83735; 83874; 83880; 84484; 85025; 85610; 85730; 93041

== ENCOUNTER → 2021-08-22 | Outpatient (CLI) | payer OTHER ==
[~2021-08-22] MED LIST changes: -LISI-556 PO; +LISI5TAB20 PO; -PANT40TA3 PO; +PANT40TA52 PO
== END ==
LOC: CARD 08:12
PROVIDERS: ATTEND Internal Medicine Cardiovascular Disease
DX: I34.0 Nonrheumatic mitral (valve) insufficiency (principal); I11.9 Hypertensive heart disease without heart failure
CPT/HCPCS: 93306

== ENCOUNTER 2021-11-05 13:26 | Emergency (ER) | payer OTHER ==
[~2021-11-05] VITALS: Ht 162.6 cm; Wt 64.5 kg
[2021-11-05] MEDS ORDERED: NS IV 1000 ML 1,000 ML IV STA (13:45)
[2021-11-05] MEDS ORDERED: fentaNYL INJ 100 MCG/2 ML AMP IVP STA (13:45)
--- NOTE | 2021-11-05 14:04 | ED GI ---
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 WENT TO [facility] WALK IN CLINIC AND WAS TOLD TO COME TO ED. 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 Jacobson is a 61 yo male with PMH HTN and Heart attack that presents to the ED today for L groin pain. 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 About 40 mins prior to his arrival he was lifting a bed when he felt a tear in the left side of his abdomen that shot down into his testicles. He says the pain is severe and feels like a hot stabbing feeling. He has never had pain like this before. No previous history of any abdominal surgery. He was seen in the [facility] clinic but told him they don't have US available and to come here. He states that lifting up on his testicles helps with the pain, walking makes it worse. There is a swelling in his L inguinal area and scrotum. 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 STUDENT) Timing/Duration: 1-3 Hours Severity/Quality: Moderate, Severe Location: Other (Left groin) Radiation: LLQ Modifying Factors: Improves With Resting Associated Symptoms: No Back Pain, No Chest Pain, No Fever/Chills, No Nausea/Vomiting; Swelling/Mass in Abdomen (Left groin); No Weakness (DOMINGUEZ ADAN MD) Allergies and Home Medications Allergies Coded Allergies: shellfish derived (Verified Allergy, Unknown, 04/27/20) Patient Home Medication List Home Medication List Reviewed: Yes (DOMINGUEZ ADAN MD) Aspirin (Aspir 81) 81 Mg Tablet.dr, 81 MG PO DAILY, (Reported) Entered as Reported by: TIM CHRISTINE on 12/14/16 1302 Atorvastatin Calcium (Lipitor) 80 Mg Tablet, 80 MG PO HS, (Reported) Entered as Reported by: TIM CHRISTINE on 12/14/16 1300 Clopidogrel Bisulfate (Clopidogrel) 75 Mg Tablet, 75 MG PO DAILY, (Reported) Entered as Reported by: TIM CHRISTINE on 12/14/16 1300 Insulin Glargine,Hum.rec.anlog (Julio Cesar Stoddardostar) 300 Unit/1 Ml Insuln.pen, 15 UNIT SQ DAILY, (Reported) Entered as Reported by: TIM CHRISTINE on 12/14/16 1300 Lisinopril (Lisinopril) 5 Mg Tablet, 2.5 MG PO DAILY, (Reported) Entered as Reported by: TIM CHRISTINE on 12/14/16 1302 Metoprolol Succinate (Metoprolol Succinate) 50 Mg Tab.er.24h, 50 MG PO DAILY Prescribed by: TIM CHRISTINE on 12/18/16 1055 Nitroglycerin (Nitrolingual) 12 Gm Rembrandt, 1 SPRAY TL UD PRN for CHEST PAIN, (Reported) Entered as Reported by: TIM CHRISTINE on 12/14/16 1300 Pantoprazole Sodium (Pantoprazole Sodium) 40 Mg Tablet.dr, 40 MG PO DAILY@0700 Prescribed by: TIM CHRISTINE on 12/17/16 1039 Sitagliptin Phos/Metformin HCl (Janumet 50-500 mg Tablet) 1 Tab Tablet, 1 TAB PO BID, (Reported) Entered as Reported by: VANDANA FERRARI on 12/13/16 2214 Sucralfate (Sucralfate) 1 Gm Tablet, 1 GM PO ACHS Prescribed by: TIM CHRISTINE on 12/17/16 1039 Review of Systems Review of Systems Constitutional: No chills, No fever EENTM: No Blurred Vision, No Double Vision Respiratory: Denies Cough, Denies Shortness of Air Cardiovascular: Denies Chest Pain, Denies Edema Gastrointestinal: Abdominal Pain (LLQ into inguinal area); Denies Constipated, Denies Diarrhea, Denies Nausea, Denies Vomiting Genitourinary: Other (Decent sized swelling in the L scrotum, tender to palpation in inguinal area and testicles to palpation.) Musculoskeletal: No joint pain, No joint swelling Skin: No pruritus, No rash Psychiatric/Neurological: Denies Headache, Denies Numbness (LUCILA SHEARER MED STUDENT) All Other Systems Reviewed Negative Unless Noted: Yes (DOMINGUEZ ADAN MD) Past Pyixmkq-Fjbyen-Mvyqzt Hx Patient Social History Tobacco Use?: No Use of E-Cig and/or Vaping dev: No Substance use?: No Alcohol Use?: No Pt feels they are or have been: No (LUCILA SHEARER [employer] STUDENT) Immunizations Up To Date Tetanus Booster (TDap): More than 5yrs First/Initial COVID19 Vaccinat: THIS YEAR ? Second COVID19 Vaccination Jonathan: THIS YEAR? 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 (LUCILA SHEARER) Seasonal Allergies Seasonal Allergies: No (LUCILA SHEARER [employer] STUDENT) Past Medical History Surgeries: Yes (C5 WITH A BONE GRAFT INTO HIP AND PLACED IN NECK, triple bypass) CABG Respiratory: No Cardiac: Yes Coronary Artery Disease, Heart Attack, High Cholesterol, Hypertension Neurological: No Genitourinary: No Gastrointestinal: No Musculoskeletal: No Endocrine: Yes (DIET CONTROLLED DIABETES) Diabetes, Non-Insulin dep HEENT: No Cancer: No Psychosocial: Yes Anxiety Integumentary: No (LUCILA SHEARER STUDENT) Family Medical History Reviewed Nursing Family Hx (DOMINGUEZ ADAN MD) Diabetes mellitus 19 FATHER 19 MOTHER FH: CHF (congestive heart failure) 19 FATHER Heart Disease, CAD Over 55 Years Old, Diabetes (LUCILA SHEARER STUDENT) Physical Exam Vital Signs Vital Signs - First Documented 11/05/21 13:33 Temp 36.8 Pulse 110 B/P (MAP) 139/90 (106) O2 Delivery Room Air (DOMINGUEZ ADAN MD) Vital Signs Capillary Refill : Less Than 3 Seconds (LUCILA SHEARER STUDENT) Height/Weight/BMI Height: 5'4.00" Weight: 127lbs. 8.0oz. 57.249008bp; 24.00 BMI Method:Stated General Appearance: WD/WN, moderate distress HEENT: PERRL/EOMI, pharynx normal Respiratory: chest non-tender, lungs clear, normal breath sounds Cardiovascular: regular rate, rhythm, no JVD, no murmur Peripheral Pulses: 2+ Radial Pulses (R), 2+ Radial Pulses (L) Gastrointestinal: normal bowel sounds, soft, tenderness (Mild tenderness in LLQ), mass (L inguinal area, tender to palpation) Extremities: no pedal edema, no calf tenderness, normal capillary refill Back: normal inspection, no CVA tenderness, no vertebral tenderness Male: inguinal tenderness, testicular tenderness, other (Swelling in L scrotum, testicle tender to palpation. Not reducable. R side has no swelling or tenderness) Neurologic/Psychiatric: alert, normal mood/affect, oriented x 3 (LUCILA SHEARER MED STUDENT) General Appearance: WD/WN, moderate distress HEENT: PERRL/EOMI, pharynx normal Neck: full range of motion, supple Respiratory: lungs clear, normal breath sounds Cardiovascular: regular rate, rhythm, no murmur Gastrointestinal: soft, tenderness (Mild tenderness in LLQ), mass (L inguinal area, tender to palpation with findings consistent with hernia down to the left scrotum) Extremities: no pedal edema, no calf tenderness Back: normal inspection, no CVA tenderness, no vertebral tenderness Neurologic/Psychiatric: alert, oriented x 3 Skin: normal color, warm/dry (DOMINGUEZ ADAN MD) Progress/Results/Core Measures Results/Orders Lab Results Laboratory Tests Test 11/05/21 14:00 Range/Units White Blood Count 9.9 4.3-11.0 10^3/uL Red Blood Count 3.98 L 4.30-5.52 10^6/uL Hemoglobin 12.8 L 13.3-17.7 g/dL Hematocrit 38 L 40-54 % Mean Corpuscular Volume 95 80-99 fL Mean Corpuscular Hemoglobin 32 25-34 pg Mean Corpuscular Hemoglobin Concent 34 32-36 g/dL Red Cell Distribution Width 12.0 10.0-14.5 % Platelet Count 252 130-400 10^3/uL Mean Platelet Volume 9.0 9.0-12.2 fL Immature Granulocyte % (Auto) 0 % Neutrophils (%) (Auto) 68 42-75 % Lymphocytes (%) (Auto) 22 12-44 % Monocytes (%) (Auto) 8 0-12 % Eosinophils (%) (Auto) 1 0-10 % Basophils (%) (Auto) 0 0-10 % Neutrophils # (Auto) 6.7 1.8-7.8 10^3/uL Lymphocytes # (Auto) 2.2 1.0-4.0 10^3/uL Monocytes # (Auto) 0.8 0.0-1.0 10^3/uL Eosinophils # (Auto) 0.1 0.0-0.3 10^3/uL Basophils # (Auto) 0.0 0.0-0.1 10^3/uL Immature Granulocyte # (Auto) 0.0 0.0-0.1 10^3/uL Sodium Level 137 135-145 MMOL/L Potassium Level 3.9 3.6-5.0 MMOL/L Chloride Level 105 98-107 MMOL/L Carbon Dioxide Level 22 21-32 MMOL/L Anion Gap 10 5-14 MMOL/L Blood Urea Nitrogen 15 7-18 MG/DL Creatinine 0.96 0.60-1.30 MG/DL Estimat Glomerular Filtration Rate 90 BUN/Creatinine Ratio 16 Glucose Level 165 H 70-105 MG/DL Calcium Level 9.4 8.5-10.1 MG/DL Corrected Calcium 9.2 8.5-10.1 MG/DL Total Bilirubin 0.5 0.1-1.0 MG/DL Aspartate Amino Transf (AST/SGOT) 21 5-34 U/L Alanine Aminotransferase (ALT/SGPT) 13 0-55 U/L Alkaline Phosphatase 52 40-136 U/L Total Protein 7.2 6.4-8.2 GM/DL Albumin 4.3 3.2-4.5 GM/DL (DOMINGUEZ ADAN MD) My Orders Orders - DOMIGNUEZ ADAN MD Cbc With Automated Diff (11/05/21 13:45) Comprehensive Metabolic Panel (11/05/21 13:45) Us Scrotum (Testicle) [id number] (11/05/21 13:45) Ed Iv/Invasive Line Start (11/05/21 13:45) Fentanyl Inj (Sublimaze Injection) (11/05/21 13:45) Ns Iv 1000 Ml (Sodium Chloride 0.9%) (11/05/21 13:45) Ct Abdomen/Pelvis Wo (11/05/21 15:17) (DOMINGUEZ ADAN MD) Vital Signs/I&O 11/05/21 13:33 Temp 36.8 Pulse 110 B/P (MAP) 139/90 (106) O2 Delivery Room Air (DOMINGUEZ ADAN MD) Blood Pressure Mean: 106 Progress Progress Note : Time: 14:00 Progress Note Due to nature of his injury and swelling it is likely there is an inguinal hernia. This was not able to be reduced on exam. Will get US to evaluate for strangulation and will also evaluate for torsion which is less likely. Will probably need surgical intervention to fix and likely will need to be done today if bowel is incarcerated. Will give fentanyl for pain at this time. Will also get basic labs. (LUCILA SHEARER MED STUDENT) Progress Note : Progress Note I have seen and evaluated the patient and agree with above except as indicated. I directed the plan of care. Patient is here with acute onset of left groin pain with swelling. States he felt a tearing and then noted the swelling. Pain is persisting. Onset while bearing down while moving a bed. He has never had anything like this happen before. Denies nausea or vomiting. Denies other symptoms or concerns. Evaluation as above. I did try to reduce the hernia without success. Plan we will get basic labs as well as an IV and get ultrasound of the scrotum to rule out testicular concerns and also evaluate for bowel. 1540: We have added CT scan which clearly shows balance to the left scrotum. I discussed the case with the surgeon on-call, Dr. Alvarez and he will see the patient in the ER. Monitor patient. 1640: Dr. Alvarez seen the patient and he was able to reduce the hernia. He is reviewed the CT scan as well as ultrasound and lab results. Dr. Alvarez is setting him up for surgery next Thursday and request that patient hold aspirin and Plavix starting now. This was discussed with the patient. Overall he is doing better. Discharged home with return precautions. Patient verbalized understanding of instructions and agreement with plan. He does have some mild residual pain and I will do small prescription for some pain medicine. (DOMINGUEZ ADAN MD) Diagnostic Imaging Diagonstic Imaging: Ultrasound Plain Films/CT/US/NM/MRI: other Comments [email or web address] [place], [place] NAME: MITZI JACOBSON [facility] REC#: [id number] PT STATUS: REG ER : 1960 PHYSICIAN: DOMINGUEZ ADAN MD ADMIT DATE: 11/05/21/ER Draft Date of Exam:11/05/21 US SCROTUM (Testicle) [id number] PROCEDURE: US Scrotum. TECHNIQUE: Multiple real-time grayscale images were obtained over the scrotum in various projections bilaterally. INDICATION: Left testicular pain and swelling. COMPARISON: None FINDINGS: Testicles are normal in size, shape, and echogenicity. Right testicle measures 4 x 1.6 x 2.5 cm and the left measures 3.2 x 2.3 x 2.4 cm. No intratesticular masses are seen. Doppler images show appropriate vascularity bilaterally. There is no large hydrocele nor varicocele on either side. Bilateral epididymides have a normal sonographic appearance. Performing repair service clerk notes area of heterogeneity superior to the left testicle. There is no peristalsis within the area. IMPRESSION: 1. Unremarkable scrotal sonogram. 2. Suspicious area of heterogeneity superior to the left testicle, which may be on the basis of fat-containing inguinal hernia. If further evaluation is indicated, CT may be of benefit. Dictated on workstation # [id number] Dict: 11/05/21 1448 Trans: 11/05/21 1501 [facility] [id number] Interpreted by: ASIF LEAL MD Electronically signed by: Diagonstic Imaging: CT Plain Films/CT/US/NM/MRI: abdomen, pelvis Comments [facility] [place] [place] NAME: MITZI JACOBSON [facility] REC#: [id number] PT STATUS: REG ER : 1960 PHYSICIAN: DOMINGUEZ ADAN MD ADMIT DATE: 11/05/21/ER Draft Date of Exam:11/05/21 CT ABDOMEN/PELVIS WO PROCEDURE: CT abdomen and pelvis without contrast. TECHNIQUE: Multiple contiguous axial images were obtained through the abdomen and pelvis without the use of intravenous contrast. Auto Exposure Controls were utilized during the CT exam to meet ALARA standards for radiation dose reduction. INDICATION: Left inguinal fullness. Possible injury. COMPARISON: None. FINDINGS: Included portions of the lung bases are clear. CT ABDOMEN: Large left inguinal hernia is identified and contains a large portion of the cephalad sigmoid colon. There is no associated appreciable colonic wall thickening to suggest strangulation. Proximal large and small bowel loops are nondistended. There is no evidence of obstruction. Normal appendix cannot be adequately identified, but there is no pericecal inflammation. Fat-containing umbilical hernia is identified as well. Ostium measures 2.1 cm in diameter. Kidneys, adrenal glands, spleen, pancreas, and liver have an unremarkable noncontrast CT appearance. There is no loculated fluid collection, free fluid, or free air within the abdomen. No abnormal mesenteric or retroperitoneal adenopathy is seen. Osseous structures show no acute abnormalities. Moderate diffuse calcified aortic and arterial atherosclerosis is present. CT PELVIS: Again, there is left-sided inguinal hernia containing large portion of the sigmoid colon. Urinary bladder is unopacified. No calculi are seen within the urinary bladder. There is no loculated fluid collection, free fluid, or free air within the pelvis. No abnormal adenopathy is seen. Osseous structures show no acute abnormalities. IMPRESSION: 1. Left inguinal hernia containing large portion of the sigmoid colon. Again, there is no convincing evidence of strangulation or obstruction. 2. Fat-containing umbilical hernia. Dictated on workstation # [id number] Dict: 11/05/21 1538 Trans: 11/05/21 1551 [id number] [id number] Interpreted by: ASIF LEAL MD Electronically signed by: (DOMINGUEZ ADAN MD) Departure Impression Primary Impression: Left inguinal hernia Disposition: 01 HOME, SELF-CARE Condition: Stable Departure-Patient Inst. Decision time for Depature: 16:50 (DOMINGUEZ ADAN MD) Referrals: [facility] (PCP/Family) Primary Care Physician INESSA ALVAREZ DO Patient Instructions: Inguinal and Femoral (Groin) Hernias Add. Discharge Instructions: All discharge instructions reviewed with patient and/or family. Voiced understanding. Dr. Alvarez to schedule you for surgery for next Thursday. The hospital will call you with instructions. You need to not take your aspirin or Plavix until instructed to do so by his office or him and this will be after surgery. The pain medicines that you have been prescribed may constipate you so it is very im portant that you drink plenty of fluids and eat a high-fiber diet. Do not drive or work while taking the pain medicine. If you are not taking the prescribed pain medicine, you may take Tylenol/acetaminophen 1000 mg every 6-8 hours as needed for pain. Do not take both at the same time as they both have acetaminophen in them. If bulging returns to the area of the left groin, return to the ER. Return for worse pain, swelling, weakness, breathing problems, difficulty with going to the bathroom or other concerns as needed. Scripts Hydrocodone Bit/Acetaminophen (HYDROcodone/APAP 5 MG/325 MG TAB) 1 Tab Tab 1 TAB PO Q6H for Pain, #6 TAB 0 Refills Prov: DOMINGUEZ ADAN MD 11/05/21 Copy Copies To 1: INESSA ALVAREZ DEREK MED STUDENT Nov 05, 2021 14:04 DOMINGUEZ ADAN MD Nov 05, 2021 15:40
[2021-11-05 14:13] LABS: BASOPHILS % (AUTO) 0 % (0-10); EOSINOPHILS # (AUTO) 0.1 10^3/uL (0.0-0.3); EOSINOPHILS % (AUTO) 1 % (0-10); HEMATOCRIT 38 % (40-54); HEMOGLOBIN 12.8 g/dL (13.3-17.7); LYMPHOCYTES # (AUTO) 2.2 10^3/uL (1.0-4.0); LYMPHOCYTES % (AUTO) 22 % (12-44); MEAN CORPUSCULAR HEMOGLOBIN 32 pg (25-34); MEAN CORPUSCULAR HGB CONC 34 g/dL (32-36); MEAN CORPUSCULAR VOLUME 95 fL (80-99); MONOCYTES # (AUTO) 0.8 10^3/uL (0.0-1.0); MONOCYTES % (AUTO) 8 % (0-12); NEUTROPHILS # (AUTO) 6.7 10^3/uL (1.8-7.8); NEUTROPHILS % (AUTO) 68 % (42-75); PLATELET COUNT 252 10^3/uL (130-400); WHITE BLOOD COUNT 9.9 10^3/uL (4.3-11.0)
[2021-11-05 14:26] LABS: ALBUMIN 4.3 GM/DL (3.2-4.5); POTASSIUM 3.9 MMOL/L (3.6-5.0)
[2021-11-05 14:28] LABS: CALCIUM 9.4 MG/DL (8.5-10.1)
[2021-11-05 14:29] LABS: TOTAL PROTEIN 7.2 GM/DL (6.4-8.2)
[2021-11-05 14:31] LABS: BILIRUBIN,TOTAL 0.5 MG/DL (0.1-1.0)
[2021-11-05 14:32] LABS: CREATININE SERUM 0.96 MG/DL (0.60-1.30)
--- NOTE | 2021-11-05 15:02 | Diagnostic Imaging Report ---
PROCEDURE: US Scrotum. TECHNIQUE: Multiple real-time grayscale images were obtained over the scrotum in various projections bilaterally. INDICATION: Left testicular pain and swelling. COMPARISON: None FINDINGS: Testicles are normal in size, shape, and echogenicity. Right testicle measures 4 x 1.6 x 2.5 cm and the left measures 3.2 x 2.3 x 2.4 cm. No intratesticular masses are seen. Doppler images show appropriate vascularity bilaterally. There is no large hydrocele nor varicocele on either side. Bilateral epididymides have a normal sonographic appearance. Performing parts analyst notes area of heterogeneity superior to the left testicle. There is no peristalsis within the area. IMPRESSION: 1. Unremarkable scrotal sonogram. 2. Suspicious area of heterogeneity superior to the left testicle, which may be on the basis of fat-containing inguinal hernia. If further evaluation is indicated, CT may be of benefit. Dictated by: Dictated on workstation # [id number]
--- NOTE | 2021-11-05 15:52 | Diagnostic Imaging Report ---
PROCEDURE: CT abdomen and pelvis without contrast. TECHNIQUE: Multiple contiguous axial images were obtained through the abdomen and pelvis without the use of intravenous contrast. Auto Exposure Controls were utilized during the CT exam to meet ALARA standards for radiation dose reduction. INDICATION: Left inguinal fullness. Possible injury. COMPARISON: None. FINDINGS: Included portions of the lung bases are clear. CT ABDOMEN: Large left inguinal hernia is identified and contains a large portion of the cephalad sigmoid colon. There is no associated appreciable colonic wall thickening to suggest strangulation. Proximal large and small bowel loops are nondistended. There is no evidence of obstruction. Normal appendix cannot be adequately identified, but there is no pericecal inflammation. Fat-containing umbilical hernia is identified as well. Ostium measures 2.1 cm in diameter. Kidneys, adrenal glands, spleen, pancreas, and liver have an unremarkable noncontrast CT appearance. There is no loculated fluid collection, free fluid, or free air within the abdomen. No abnormal mesenteric or retroperitoneal adenopathy is seen. Osseous structures show no acute abnormalities. Moderate diffuse calcified aortic and arterial atherosclerosis is present. CT PELVIS: Again, there is left-sided inguinal hernia containing large portion of the sigmoid colon. Urinary bladder is unopacified. No calculi are seen within the urinary bladder. There is no loculated fluid collection, free fluid, or free air within the pelvis. No abnormal adenopathy is seen. Osseous structures show no acute abnormalities. IMPRESSION: 1. Left inguinal hernia containing large portion of the sigmoid colon. Again, there is no convincing evidence of strangulation or obstruction. 2. Fat-containing umbilical hernia. Dictated by: Dictated on workstation # [id number]
--- NOTE | 2021-11-05 16:34 | Consultation - Surgery ---
KATHERIN MATAMOROS 11/05/21 1634: History of Present Illness History of Present Illness Patient Consulted On(melecio/time) 11/05/21 16:28 Date Seen by Provider: Nov 05, 2021 Time Seen by Provider: 15:41 History of Present Illness Que Pena is a 61y/o M with a PMH of HTN and CABGx3 who is being seen for surgical consult due to left lower abdominal and scrotal pain. Pt reports that he was lifting a bed at work and felt something tear in his left abdomen with pain that shot down into his scrotum. States that the pain was a hot stabbing pain. Lifting the testicles helps the pain and walking makes it worse. He says the left side of his scrotum is enlarged. Pain has improved after he received fentanyl. No history of previous abdominal surgeries. He has not had an episode like this in the past. Pt is on aspirin and Plavix due to his CABGx3 and he states that he last took the medication today. Allergies and Home Medications Allergies Coded Allergies: shellfish derived (Verified Allergy, Unknown, 04/27/20) Patient Home Medication List Home Medication List Reviewed: Yes Aspirin (Aspir 81) 81 Mg Tablet.dr, 81 MG PO DAILY, (Reported) Entered as Reported by: TIM CHRISTINE on 12/14/16 1302 Atorvastatin Calcium (Lipitor) 80 Mg Tablet, 80 MG PO HS, (Reported) Entered as Reported by: TIM CHRISTINE on 12/14/16 1300 Clopidogrel Bisulfate (Clopidogrel) 75 Mg Tablet, 75 MG PO DAILY, (Reported) Entered as Reported by: TIM CHRISTINE on 12/14/16 1300 Hydrocodone Bit/Acetaminophen (HYDROcodone/APAP 5 MG/325 MG TAB) 1 Tab Tab, 1 TAB PO Q6H Prescribed by: DOMINGUEZ ADAN on 11/05/21 1654 Insulin Glargine,Hum.rec.anlog (Julio Cesar Aj) 300 Unit/1 Ml Insuln.pen, 15 UNIT SQ DAILY, (Reported) Entered as Reported by: TIM CHRISTINE on 12/14/16 1300 Lisinopril (Lisinopril) 5 Mg Tablet, 2.5 MG PO DAILY, (Reported) Entered as Reported by: TIM CHRISTINE on 12/14/16 1302 Metoprolol Succinate (Metoprolol Succinate) 50 Mg Tab.er.24h, 50 MG PO DAILY Prescribed by: TIM CHRISTINE on 12/18/16 1055 Nitroglycerin (Nitrolingual) 12 Gm [place], 1 SPRAY TL UD PRN for CHEST PAIN, (Reported) Entered as Reported by: TIM CHRISTINE on 12/14/16 1300 Pantoprazole Sodium (Pantoprazole Sodium) 40 Mg Tablet.dr, 40 MG PO DAILY@0700 Prescribed by: TIM CHRISTINE on 12/17/16 1039 Sitagliptin Phos/Metformin HCl (Janumet 50-500 mg Tablet) 1 Tab Tablet, 1 TAB PO BID, (Reported) Entered as Reported by: VANDANA FERRARI on 12/13/16 2214 Sucralfate (Sucralfate) 1 Gm Tablet, 1 GM PO ACHS Prescribed by: TIM CHRISTINE on 12/17/16 1039 Past Etodqiz-Baczsr-Tmkmjj Hx Patient Social History Recent Hopitalizations: Yes (CABG in 2018) Alcohol Use?: No Have you traveled recently?: No Immunizations Up To Date Tetanus Booster (TDap): More than 5yrs Date of Influenza Vaccine: Jun 07, 2016 Seasonal Allergies Seasonal Allergies: No Surgeries History of Surgeries: Yes (C5 WITH A BONE GRAFT INTO HIP AND PLACED IN NECK, triple bypass) Surgeries: CABG Respiratory History of Respiratory Disorde: No Cardiovascular History of Cardiac Disorders: Yes Cardiac Disorders: Coronary Artery Disease, Heart Attack, High Cholesterol, Hypertension Neurological History of Neurological Disord: No Genitourinary History of Genitourinary Disor: No Gastrointestinal History of Gastrointestinal Di: No Musculoskeletal History of Musculoskeletal Dis: No Endocrine History of Endocrine Disorders: Yes (DIET CONTROLLED DIABETES) Endocrine Disorders: Diabetes, Non-Insulin dep HEENT History of HEENT Disorders: No Cancer History of Cancer: No Psychosocial History of Psychiatric Problem: Yes Behavioral Health Disorders: Anxiety Integumentary History of Skin or Integumenta: No Family Medical History Significant Family History: Heart Disease, CAD Over 55 Years Old, Diabetes Family Medial History: Diabetes mellitus 19 FATHER 19 MOTHER FH: CHF (congestive heart failure) 19 FATHER Review of Systems-General Constitutional: No chills, No fever EENTM: No blurred vision, No double vision Respiratory: No cough, No dyspnea on exertion Cardiovascular: No chest pain, No palpitations Gastrointestinal: abdominal pain (LLQ) Genitourinary: No dysuria, No hematuria; pain (left scrotum) Musculoskeletal: No joint pain, No muscle pain Psychiatric/Neurological: Numbness (chronic b/l hand numbness); Denies Tingling Physical Exam-General Problems Physical Exam Vital Signs Vital Signs - First Documented 11/05/21 13:33 Temp 36.8 Pulse 110 B/P (MAP) 139/90 (106) O2 Delivery Room Air Capillary Refill : Less Than 3 Seconds General Appearance: WD/WN, mild distress Neck: supple, normal inspection Respiratory: lungs clear, normal breath sounds, no respiratory distress Cardiovascular: normal peripheral pulses, no murmur, tachycardia Gastrointestinal: soft, tenderness (LLQ) Genital/Rectal: tenderness (left scrotum), other (enlarged left scrotum ) Extremities: normal inspection, no pedal edema, normal capillary refill Neurologic/Psychiatric: alert, oriented x 3 Skin: normal color, warm/dry Lymphatic: no adenopathy Data Review Labs Laboratory Tests 11/05/21 14:00: White Blood Count 9.9, Red Blood Count 3.98L, Hemoglobin 12.8L, Hematocrit 38L, Mean Corpuscular Volume 95, Mean Corpuscular Hemoglobin 32, Mean Corpuscular Hemoglobin Concent 34, Red Cell Distribution Width 12.0, Platelet Count 252, Mean Platelet Volume 9.0, Immature Granulocyte % (Auto) 0, Neutrophils (%) (Auto) 68, Lymphocytes (%) (Auto) 22, Monocytes (%) (Auto) 8, Eosinophils (%) (Auto) 1, Basophils (%) (Auto) 0, Neutrophils # (Auto) 6.7, Lymphocytes # (Auto) 2.2, Monocytes # (Auto) 0.8, Eosinophils # (Auto) 0.1, Basophils # (Auto) 0.0, Immature Granulocyte # (Auto) 0.0, Sodium Level 137, Potassium Level 3.9, Chloride Level 105, Carbon Dioxide Level 22, Anion Gap 10, Blood Urea Nitrogen 15, Creatinine 0.96, Estimat Glomerular Filtration Rate 90, BUN/Creatinine Ratio 16, Glucose Level 165H, Calcium Level 9.4, Corrected Calcium 9.2, Total Bilirubin 0.5, Aspartate Amino Transf (AST/SGOT) 21, Alanine Aminotransferase (ALT/SGPT) 13, Alkaline Phosphatase 52, Total Protein 7.2, Albumin 4.3 Assessment/Plan Assessment/Plan Assessment/Plan Assessment Abdominal/scrotal pain Left inguinal hernia HTN CAD Plan Abdominal/pelvis CT and Scrotal U/S done. CT showed, according to radiology, left inguinal hernia containing large portion of the sigmoid colon. Hernia was able to be reduced in exam room. Pt was in pain but tolerated reduction well. Surgery scheduled for November 13 to repair inguinal defect. Pt will need to hold plavix and aspirin for 7 days before surgery due to bleeding risk. Pt instructed not to do any heavy lifting in the meantime to reduce risk of recurrence and to wear a hernia belt. KIMINESSA Pro DO 11/05/21 7587: History of Present Illness History of Present Illness History of Present Illness Consult requested by Dr. ADAN for left inguinal hernia Seen and evaluated the emergency department. Patient is a 61-year-old male who began having left lower abdominal pain and scrotal pain with a bulge after lifting something heavy at work. He felt a tearing sensation that shot down into his scrotum. Is a hot stabbing type pain. The area is cracking still operator due to the tearing sensation. The pain was continuous. He states walking would make it worse. Lifting the testicle on the left side would make a little bit better. Patient went to the emergency department for further evaluation. He had an ultrasound that had normal scrotal ultrasound except for some fat on the left side which could be from fat from inguinal hernia. He had a CT scan demonstrating a left inguinal hernia with sigmoid colon through it. He also was noted to have small umbilical hernia. The inguinal hernia did not appear to be strangulated. Patient with no other complaints at this time. Denies any nausea vomiting fever sweats chills shortness of breath or chest pain. Patient is on Plavix and aspirin after having a CABG. Allergies and Home Medications Allergies Coded Allergies: shellfish derived (Verified Allergy, Unknown, 04/27/20) Patient Home Medication List Home Medication List Reviewed: Yes Aspirin (Aspir 81) 81 Mg Tablet., 81 MG PO DAILY, (Reported) Entered as Reported by: TIM CHRISTINE on 12/14/16 1302 Atorvastatin Calcium (Lipitor) 80 Mg Tablet, 80 MG PO HS, (Reported) Entered as Reported by: TIM CHRISTINE on 12/14/16 1300 Clopidogrel Bisulfate (Clopidogrel) 75 Mg Tablet, 75 MG PO DAILY, (Reported) Entered as Reported by: TIM CHRISTINE on 12/14/16 1300 Hydrocodone Bit/Acetaminophen (HYDROcodone/APAP 5 MG/325 MG TAB) 1 Tab Tab, 1 TAB PO Q6H Prescribed by: DOMINGUEZ ADAN on 11/05/21 1654 Insulin Glargine,Hum.rec.anlog (Toujeo Solostar) 300 Unit/1 Ml Insuln.pen, 15 UNIT SQ DAILY, (Reported) Entered as Reported by: TIM CHRISTINE on 12/14/16 1300 Lisinopril (Lisinopril) 5 Mg Tablet, 2.5 MG PO DAILY, (Reported) Entered as Reported by: TIM CHRISTINE on 12/14/16 1302 Metoprolol Succinate (Metoprolol Succinate) 50 Mg Tab.er.24h, 50 MG PO DAILY Prescribed by: TIM CHRISTINE on 12/18/16 1055 Nitroglycerin (Nitrolingual) 12 Gm [place], 1 SPRAY TL UD PRN for CHEST PAIN, (Reported) Entered as Reported by: TIM CHRISTINE on 12/14/16 1300 Pantoprazole Sodium (Pantoprazole Sodium) 40 Mg Tablet.dr, 40 MG PO DAILY@0700 Prescribed by: TIM CHRISTINE on 12/17/16 1039 Sitagliptin Phos/Metformin HCl (Janumet 50-500 mg Tablet) 1 Tab Tablet, 1 TAB PO BID, (Reported) Entered as Reported by: VANDANA FERRARI on 12/13/16 2214 Sucralfate (Sucralfate) 1 Gm Tablet, 1 GM PO ACHS Prescribed by: TIM CHRISTINE on 12/17/16 1039 Past Hvpvuos-Wblags-Filttf Hx Patient Social History Recent Hopitalizations: Yes (CABG in 2018) Surgeries History of Surgeries: Yes Surgeries: CABG Cardiovascular Cardiac Disorders: Coronary Artery Disease, Heart Attack, High Cholesterol, Hypertension Psychosocial Behavioral Health Disorders: Anxiety Family Medical History Significant Family History: Heart Disease, CAD Over 55 Years Old, Diabetes Family Medial History: Diabetes mellitus 19 FATHER 19 MOTHER FH: CHF (congestive heart failure) 19 FATHER Review of Systems-General Constitutional: No chills, No fever EENTM: No blurred vision, No double vision Respiratory: No cough, No dyspnea on exertion Cardiovascular: No chest pain, No palpitations Gastrointestinal: abdominal pain (LLQ large left inguinal hernia) Genitourinary: No discharge, No dysuria, No hematuria; pain (left scrotum) Musculoskeletal: No joint pain, No muscle pain Skin: No change in color, No change in hair/nails Psychiatric/Neurological: Numbness (chronic b/l hand numbness); Denies Tingling All Other Systems Reviewed Negative Unless Noted: Yes (Negative excepted noted.) Physical Exam-General Problems Physical Exam General Appearance: mild distress HEENT: PERRL/EOMI, normal ENT inspection Neck: non-tender, supple, normal inspection Respiratory: chest non-tender, no respiratory distress, no accessory muscle use Cardiovascular: no JVD, tachycardia Gastrointestinal: soft, tenderness (LLQ left inguinal hernia) Genital/Rectal: tenderness (left scrotum), other (enlarged left scrotum ) Back: no CVA tenderness, no vertebral tenderness Extremities: normal inspection, no pedal edema Neurologic/Psychiatric: no motor/sensory deficits, alert, normal mood/affect, oriented x 3 Skin: normal color, warm/dry Lymphatic: no adenopathy Assessment/Plan Assessment/Plan Assessment/Plan Abdominal/scrotal pain Left inguinal hernia Long-term antiplatelet current use HTN CAD Plan Abdominal/pelvis CT and Scrotal U/S done. CT showed, according to radiology, left inguinal hernia containing large portion of the sigmoid colon. I was able to reduce the left inguinal hernia that was containing sigmoid colon. Patient got instant relief. We discussed risk and benefits of open left inguinal hernia repair which patient understands and wishes to proceed. Patient is on Plavix and aspirin which we need to hold these 7 days prior to procedure to help reduce risk of bleeding. Surgery scheduled for November 13 to repair left inguinal hernia. Pt will need to hold plavix and aspirin for 7 days before surgery due to bleeding risk. Pt instructed not to do any heavy lifting in the meantime to reduce risk of recurrence and to wear a hernia belt. Any problems be reevaluated at that time. Supervisory-Addendum Brief Verification & Attestation Participated in pt care: history, MDM, physical Personally performed: exam, history, MDM, supervision of care Care discussed with: Medical Student Procedures: n/a Results interpretation: Verified all documentation Verification and Attestation of Medical Student E/M Service A medical student performed and documented this service in my presence. I reviewed and verified all information documented by the medical student and made modifications to such information, when appropriate. I personally performed the physical exam and medical decision making. Inessa Alvarez, Nov 05, 2021,17:12 KATHERIN MATAMOROS Nov 05, 2021 16:34 INESSA ALVAREZ DO Nov 05, 2021 17:07
[2021-11-05] MEDS ORDERED: ACHD5005 PO (16:54)
[2021-11-05 17:05] VITALS: BP 133/68
== END 2021-11-05 17:07 | disposition home or self-care (01) ==
LOC: EDUNIT# 13:26 → ER 13:27
DX: K40.90 Unilateral inguinal hernia, without obstruction or gangrene, not specified as recurrent (principal)
CPT/HCPCS: 36415; 74176; 76870; 80053; 85025

== ENCOUNTER 2022-01-15 07:58 | Day surgery (SDC) | payer OTHER ==
[~2022-01-15] VITALS: Ht 162 cm; Wt 64.0 kg
[2022-01-15] VITALS (12 sets, daily range): BP systolic 98–124; BP diastolic 64–79
[~2022-01-15 07:58] MED LIST changes: +ACHD5005 PO
[2022-01-15] MEDS ORDERED: NITROGLYCERIN 0.4 MG SL TABS BTL 25'S SL PRN (08:00)
[2022-01-15] MEDS ORDERED: ASPIRIN 81 MG CHEW (CHILDREN'S ASA) PO ONE (08:00)
[2022-01-15 08:22] LABS: BASOPHILS % (AUTO) 0 % (0-10); EOSINOPHILS # (AUTO) 0.1 10^3/uL (0.0-0.3); EOSINOPHILS % (AUTO) 1 % (0-10); HEMATOCRIT 40 % (40-54); HEMOGLOBIN 13.1 g/dL (13.3-17.7); LYMPHOCYTES # (AUTO) 1.7 10^3/uL (1.0-4.0); LYMPHOCYTES % (AUTO) 26 % (12-44); MEAN CORPUSCULAR HEMOGLOBIN 32 pg (25-34); MEAN CORPUSCULAR HGB CONC 33 g/dL (32-36); MEAN CORPUSCULAR VOLUME 96 fL (80-99); MEAN PLATELET VOLUME 9.4 fL (9.0-12.2); MONOCYTES # (AUTO) 0.7 10^3/uL (0.0-1.0); MONOCYTES % (AUTO) 10 % (0-12); NEUTROPHILS % (AUTO) 62 % (42-75); PLATELET COUNT 214 10^3/uL (130-400); WHITE BLOOD COUNT 6.4 10^3/uL (4.3-11.0)
[2022-01-15 08:37] LABS: ALBUMIN 4.3 GM/DL (3.2-4.5); POTASSIUM 4.2 MMOL/L (3.6-5.0)
--- NOTE | 2022-01-15 08:37 | ED Chest Pain ---
General Chief Complaint: Chest Pain Stated Complaint: CP Nursing Triage Note: ARRIVED VIA EMS FROM [facility] WITH CHEST PAIN THAT STARTED AT 0640. PT HAS RECIEVED ASA 324MG AT [facility]. Source: patient History of Present Illness Date Seen by Provider: January 15, 2022 Time Seen by Provider: 08:00 Initial Comments PT ARRIVES VIA EMS FROM [facility] C/O CHEST PAIN SINCE 0645--WAS AT WORK AT [employer] WALKING AROUND, WHEN PAIN BEGAN PAIN IS IN CENTER OF CHEST AND IS DULL THERE, AND IS SHARP IN LEFT CHEST--PAIN IS WORSE WITH EXERTION + SHORTNESS OF BREATH--WORSE WITH EXERTION + NAUSEA, NO VOMITING + SWEATS + DIZZINESS NO SWELLING IN FEET /ANKLES DENIES PALPITATIONS TO ME RATES PAIN 8/10 AT WORST; RATES 3-4/10 NOW PT HAS RECEIVED 324 MG ASPIRIN PRIOR TO ARRIVAL. NO NTG GIVEN PT HAS HAD 4 VESSEL CABG WITH UT 10/2016 STATES THIS PAIN IS SAME WITH UT. PT HAD A ROUTINE FOLLOW UP APPOINTMENT WITH DR. PETIT YESTERDAY, WAS NOT HAVING PAIN AT THAT TIME PT IS DIABETIC, HAS HTN AND HYPERLIPIDEMIA PCP: [facility] COGNOS ADMINISTRATOR: DR. PETIT Allergies and Home Medications Allergies Coded Allergies: shellfish derived (Verified Allergy, Unknown, 04/27/20) Patient Home Medication List Home Medication List Reviewed: Yes Aspirin (Aspir 81) 81 Mg Tablet.dr, 81 MG PO DAILY, (Reported) Entered as Reported by: TIM CHRISTINE on 12/14/16 1302 Atorvastatin Calcium (Lipitor) 80 Mg Tablet, 80 MG PO HS, (Reported) Entered as Reported by: TIM CHRISTINE on 12/14/16 1300 Clopidogrel Bisulfate (Clopidogrel) 75 Mg Tablet, 75 MG PO DAILY, (Reported) Entered as Reported by: TIM CHRISTINE on 12/14/16 1300 Empagliflozin (Jardiance) 10 Mg Tablet, 10 MG PO DAILY Prescribed by: GILL PETIT on 01/15/22 1316 Hydrocodone Bit/Acetaminophen (HYDROcodone/APAP 5 MG/325 MG TAB) 1 Tab Tab, 1 TAB PO Q6H Prescribed by: DOMINGUEZ ADAN on 11/05/21 1654 Insulin Glargine,Hum.rec.anlog ([place] Soltatyanaar) 300 Unit/1 Ml Insuln.pen, 15 UNIT SQ DAILY, (Reported) Entered as Reported by: TIM CHRISTINE on 12/14/16 1300 Losartan Potassium (Losartan Potassium) 25 Mg Tablet, 25 MG PO DAILY Prescribed by: GILL PETIT on 01/15/22 1316 Metoprolol Succinate (Metoprolol Succinate) 50 Mg Tab.er.24h, 50 MG PO DAILY Prescribed by: TIM CHRISTINE on 12/18/16 1055 Nitroglycerin (Nitrolingual) 12 Gm [place], 1 SPRAY TL UD PRN for CHEST PAIN, (Reported) Entered as Reported by: TIM CHRISTINE on 12/14/16 1300 Pantoprazole Sodium (Pantoprazole Sodium) 40 Mg Tablet.dr, 40 MG PO DAILY@0700 Prescribed by: TIM CHRISTINE on 12/17/16 1039 Sitagliptin Phos/Metformin HCl (Janumet 50-500 mg Tablet) 1 Tab Tablet, 1 TAB PO BID Prescribed by: GILL PETIT on 01/15/22 1316 Sucralfate (Sucralfate) 1 Gm Tablet, 1 GM PO ACHS Prescribed by: TIM CHRISTINE on 12/17/16 1039 Discontinued Medications Lisinopril (Lisinopril) 5 Mg Tablet, 2.5 MG PO DAILY, (Reported) Entered as Reported by: TIM CHRISTINE on 12/14/16 1302 Review of Systems Review of Systems Constitutional: see HPI, diaphoresis, dizziness EENTM: No Symptoms Reported Respiratory: See HPI, Shortness of Air, SOA With Exertion Cardiovascular: See HPI, Chest Pain; Denies Edema; Lightheadedness; Denies Palpitations, Denies Syncope Gastrointestinal: See HPI; Denies Abdominal Pain; Nausea; Denies Vomiting Genitourinary: No Symptoms Reported Musculoskeletal: no symptoms reported; No back pain Skin: no symptoms reported Psychiatric/Neurological: No Symptoms Reported Endocrine: No Symptoms Reported Hematologic/Lymphatic: No Symptoms Reported Past Kpayjtk-Mgsohb-Mvhvag Hx Patient Social History Tobacco Use?: No Smoking Status: Never a Smoker Substance use?: No Alcohol Use?: No Immunizations Up To Date Tetanus Booster (TDap): More than 5yrs First/Initial COVID19 Vaccinat: THIS YEAR ? Second COVID19 Vaccination Jonathan: THIS YEAR? COVID19 Vaccine Industrial Chemistry Teacher: PRASHANTH Seasonal Allergies Seasonal Allergies: No Past Medical History Surgeries: Yes (4-VESSEL CABG 10/2016; CARDIAC CATH 12/2016-NO INTERVENTION) Cardiac, CABG Respiratory: No Cardiac: Yes Coronary Artery Disease, Heart Attack, High Cholesterol, Hypertension Neurological: No Genitourinary: No Gastrointestinal: Yes (L INGUINAL HERNIA-NO SURGERY) Abdominal Hernia Musculoskeletal: No Endocrine: Yes Diabetes, Non-Insulin dep HEENT: No Cancer: No Psychosocial: Yes Anxiety Integumentary: No Blood Disorders: No Family Medical History Diabetes mellitus 19 FATHER 19 MOTHER FH: CHF (congestive heart failure) 19 FATHER Heart Disease, CAD Over 55 Years Old, Diabetes Physical Exam Vital Signs Vital Signs - First Documented 01/15/22 07:58 Temp 36.3 Pulse 98 Resp 16 B/P (MAP) 125/80 (95) Pulse Ox 100 O2 Delivery Room Air Capillary Refill : Less Than 3 Seconds Height, Weight, BMI Height: 5'4.00" Weight: 127lbs. 8.0oz. 57.733562mv; 24.00 BMI Method:Stated General Appearance: No Apparent Distress, WD/WN Neck: Full Range of Motion, Normal Inspection, Non Tender, Supple; No Carotid Bruit, No JVD Respiratory: Chest Non Tender, Normal Breath Sounds, No Accessory Muscle Use, No Respiratory Distress Cardiovascular: Regular Rate, Rhythm, No JVD, No Murmur, Normal Peripheral Pulses Gastrointestinal: Normal Bowel Sounds, No Organomegaly, No Pulsatile Mass, Non Tender, Soft Extremity: Normal Capillary Refill, Normal Range of Motion, Non Tender, No Calf Tenderness, Pedal Edema (TRACE BILATERALLY) Neurologic/Psychiatric: Alert, Oriented x3, No Motor/Sensory Deficits, Normal Mood/Affect, 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 trolley driver II-XII Norm as Tested Skin: Normal Color, Warm/Dry; No Diaphoresis, No Rash Progress/Results/Core Measures Results/Orders Lab Results Laboratory Tests Test 01/15/22 08:10 01/15/22 08:17 Range/Units White Blood Count 6.4 4.3-11.0 10^3/uL Red Blood Count 4.10 L 4.30-5.52 10^6/uL Hemoglobin 13.1 L 13.3-17.7 g/dL Hematocrit 40 40-54 % Mean Corpuscular Volume 96 80-99 fL Mean Corpuscular Hemoglobin 32 25-34 pg Mean Corpuscular Hemoglobin Concent 33 32-36 g/dL Red Cell Distribution Width 12.3 10.0-14.5 % Platelet Count 214 130-400 10^3/uL Mean Platelet Volume 9.4 9.0-12.2 fL Immature Granulocyte % (Auto) 0 % Neutrophils (%) (Auto) 62 42-75 % Lymphocytes (%) (Auto) 26 12-44 % Monocytes (%) (Auto) 10 0-12 % Eosinophils (%) (Auto) 1 0-10 % Basophils (%) (Auto) 0 0-10 % Neutrophils # (Auto) 4.0 1.8-7.8 10^3/uL Lymphocytes # (Auto) 1.7 1.0-4.0 10^3/uL Monocytes # (Auto) 0.7 0.0-1.0 10^3/uL Eosinophils # (Auto) 0.1 0.0-0.3 10^3/uL Basophils # (Auto) 0.0 0.0-0.1 10^3/uL Immature Granulocyte # (Auto) 0.0 0.0-0.1 10^3/uL Prothrombin Time 13.5 12.2-14.7 SEC INR Comment 1.0 0.8-1.4 Activated Partial Thromboplast Time 27 24-35 SEC D-Dimer 0.34 0.00-0.49 UG/ML Sodium Level 141 135-145 MMOL/L Potassium Level 4.2 3.6-5.0 MMOL/L Chloride Level 106 98-107 MMOL/L Carbon Dioxide Level 25 21-32 MMOL/L Anion Gap 10 5-14 MMOL/L Blood Urea Nitrogen 16 7-18 MG/DL Creatinine 0.77 0.60-1.30 MG/DL Estimat Glomerular Filtration Rate 102 BUN/Creatinine Ratio 21 Glucose Level 107 H 70-105 MG/DL Calcium Level 9.2 8.5-10.1 MG/DL Corrected Calcium 9.0 8.5-10.1 MG/DL Magnesium Level 1.7 1.6-2.4 MG/DL Total Bilirubin 0.8 0.1-1.0 MG/DL Aspartate Amino Transf (AST/SGOT) 22 5-34 U/L Alanine Aminotransferase (ALT/SGPT) 14 0-55 U/L Alkaline Phosphatase 46 40-136 U/L Total Creatine Kinase 82 30-200 U/L Creatine Kinase MB 3.1 <6.6 NG/ML Myoglobin 40.8 10.0-92.0 NG/ML Troponin I < 0.028 <0.028 NG/ML B-Type Natriuretic Peptide 92.6 <100.0 PG/ML Total Protein 7.1 6.4-8.2 GM/DL Albumin 4.3 3.2-4.5 GM/DL Amylase Level 35 25-125 U/L Lipase 29 8-78 U/L Glucometer 103 70-110 MG/DL My Orders Orders - WAYNE BOLES DO Ekg Tracing (01/15/22 08:00) Cbc With Automated Diff (01/15/22 08:00) Magnesium (01/15/22 08:00) Chest 1 View, Ap/Pa Only (01/15/22:00) Comprehensive Metabolic Panel (01/15/22 08:00) Myoglobin Serum (01/15/22 08:00) Protime With Inr (01/15/22 08:00) Partial Thromboplastin Time (01/15/22 08:00) O2 (01/15/22 08:00) Monitor-Rhythm Ecg Trace Only (01/15/22 08:00) Ed Iv/Invasive Line Start (01/15/22 08:00) Creatine Kinase (01/15/22 08:00) Creatine Kinase Mb (01/15/22 08:00) Lipase (01/15/22 08:00) Amylase (01/15/22 08:00) Bnp [place] (01/15/22 08:00) Fibrin Degradation Products (01/15/22 08:00) Troponin I Araceli (01/15/22 08:00) Nitroglycerin 0.4 Mg Btl 25's (Nitrostat (01/15/22 08:00) Aspirin Chewable Tablet (Baby Aspirin Ch (01/15/22 08:00) Accucheck Stat ONCE (01/15/22 08:16) Myocardial Spect Multi (01/15/22 09:12) Ed Iv/Invasive Line Start (01/15/22 11:29) Ns Iv 1000 Ml (Sodium Chloride 0.9%) (01/15/22 11:30) Medications Given in ED Vital Signs/I&O 01/15/22 01/15/22 07:58 10:03 Temp 36.3 Pulse 98 83 Resp 16 17 B/P (MAP) 125/80 (95) 121/79 (93) Pulse Ox 100 97 O2 Delivery Room Air Room Air Blood Pressure Mean: 95 FSBG Bedside Testing Finger Stick Blood Glucose: 103 Blood Glucose Action Taken: notified Progress Progress Note : Progress Note GIVEN NTG X 1--PAIN DOWN TO 2/10. ADDITIONAL DOSES HELD DUE TO DROP IN BP. PT THEN LATER RESOLVED COMPLETELY WITHOUT FURTHER TREATMENT Initial ECG Impression Date: January 15, 2022 Initial ECG Impression Time: 08:06 Initial ECG Rate: 89 Initial ECG Rhythm: Normal Sinus Initial ECG Impression: Nonspecific Changes Initial ECG Comparisson: Unchanged Diagnostic Imaging Comments CXR--PER RADIOLOGIST REPORT AT 0851 FINDINGS: Sternal wires midline. The lungs are clear. No failure, effusion or pneumothorax. IMPRESSION: No acute appearing abnormality. Reviewed: Reviewed by Me Departure Communication (Admissions) 0906--SPOKE WITH DR. PETIT. HE WILL BE DOWN TO SEE PT. 0910--DR. PETIT HERE TO SEE PT 0912--DR. PETIT WILL BE TAKING DIRECTLY FOR STRESS TEST NOW. 0914--MEDICAL TECHNOLOGIST BLOOD BANK HERE TO DOSE PT. 0933--STRESS TEST STAFF HERE TO TAKE PT PT LATER RETURNED TO ER, PENDING STRESS TEST RESULTS 1125--DR. PETIT HERE TO SEE PT AGAIN AND WILL BE TAKING PT DIRECTLY TO FISH PROCESSING SUPERVISOR. Impression Primary Impression: Chest pain Additional Impressions: HX OF UT WITH CABG NIDDM HX OF HTN Disposition: ADMITTED INPATIENT (TO FISH PROCESSING SUPERVISOR) Condition: Stable Admissions Decision to Admit Reason: Admit from ER (General) (TO FISH PROCESSING SUPERVISOR) Decision to Admit/Date: January 15, 2022 Time/Decision to Admit Time: 11:25 Departure-Patient Inst. Referrals: [facility] (PCP/Family) Primary Care Physician Scripts Losartan Potassium (Losartan Potassium) 25 Mg Tablet 25 MG PO DAILY, #30 TAB 3 Refills Prov: GILL PETIT MD 01/15/22 Empagliflozin (Jardiance) 10 Mg Tablet 10 MG PO DAILY, #30 TAB 3 Refills Prov: GILL PETIT MD 01/15/22 Sitagliptin Phos/Metformin HCl (Janumet 50-500 mg Tablet) 1 Tab Tablet 1 TAB PO BID, #1 TAB Hold metformin for 48 hours Prov: GILL PETIT MD 01/15/22 WAYNE BOLES DO January 15, 2022 08:37
[2022-01-15 08:38] LABS: CALCIUM 9.2 MG/DL (8.5-10.1)
[2022-01-15 08:40] LABS: TOTAL PROTEIN 7.1 GM/DL (6.4-8.2)
[2022-01-15 08:41] LABS: BILIRUBIN,TOTAL 0.8 MG/DL (0.1-1.0)
[2022-01-15 08:43] LABS: CREATININE SERUM 0.77 MG/DL (0.60-1.30)
[2022-01-15 08:46] LABS: MAGNESIUM 1.7 MG/DL (1.6-2.4)
--- NOTE | 2022-01-15 08:48 | Diagnostic Imaging Report ---
INDICATION: Chest pain. Compared with study 04/27/2020 FINDINGS: Sternal wires midline. The lungs are clear. No failure, effusion or pneumothorax. IMPRESSION: No acute appearing abnormality. Dictated by: Dictated on workstation # [id number]
[2022-01-15 08:55] LABS: CREATINE KINASE MB 3.1 NG/ML (<6.6)
[2022-01-15 08:56] LABS: PROTHROMBIN TIME PATIENT 13.5 SEC (12.2-14.7)
--- NOTE | 2022-01-15 09:49 | Consultation-Cardiology ---
HPI-Cardiology Cardiology Consultation Date of Consultation 01/15/22 Date of Admission Time Seen by Provider: 09:45 Indication: Chest pain HPI 61 years old gentleman with history of coronary artery disease, hypertension, hyperlipidemia. Patient has been doing well, he was seen in my office yesterday, he was scheduled for routine stress test. This morning he reported an episode of double pain in the retrosternal area associated with sharp pain on the left side of his chest. Started severe then relieved somewhat continue to have some persistent chest discomfort until he came to the emergency room and received sublingual nitroglycerin. On my evaluation he was feeling better. EKG showed Q waves in the anterior leads. Did not change compared to his baseline. No palpitation. No shortness of breath. [place] slightly lightheaded. Home Medications & Allergies Allergies: Coded Allergies: shellfish derived (Verified Allergy, Unknown, 04/27/20) Home Medication List Reviewed: Yes GNT-[id number] Hx Patient Social History Marital Status: Employed/Student: employed Smoking Status: Never a Smoker Recent Hopitalizations: Yes (CABG in 2018) Have you traveled recently?: No Alcohol Use?: No Immunizations Up To Date Tetanus Booster (TDap): More than 5yrs Date of Influenza Vaccine: Jun 07, 2016 Past Medical History Discussed below Family Medical History Significant Family History: Heart Disease, CAD Over 55 Years Old, Diabetes Family History: Diabetes mellitus 19 FATHER 19 MOTHER FH: CHF (congestive heart failure) 19 FATHER Review of Systems-General Review of Systems Constitutional: see HPI, diaphoresis, dizziness EENTM: see HPI, no symptoms reported Respiratory: see HPI; No cough, No dyspnea on exertion, No hemoptysis, No orthopnea, No phlegm, No short of breath, No stridor, No wheezing, No other Cardiovascular: see HPI, chest pain; No edema, No Hx of Intervention; palpitations; No syncope, No vascular heart diseas, No other Gastrointestinal: no symptoms reported, see HPI Genitourinary: no symptoms reported, see HPI Musculoskeletal: no symptoms reported, see HPI; No back pain Skin: no symptoms reported, see HPI Psychiatric/Neurological: No Symptoms Reported, See HPI Reviewed Test Results Reviewed Test Results Lab Laboratory Tests Test 01/15/22 08:10 01/15/22 08:17 Range/Units White Blood Count 6.4 4.3-11.0 10^3/uL Red Blood Count 4.10 L 4.30-5.52 10^6/uL Hemoglobin 13.1 L 13.3-17.7 g/dL Hematocrit 40 40-54 % Mean Corpuscular Volume 96 80-99 fL Mean Corpuscular Hemoglobin 32 25-34 pg Mean Corpuscular Hemoglobin Concent 33 32-36 g/dL Red Cell Distribution Width 12.3 10.0-14.5 % Platelet Count 214 130-400 10^3/uL Mean Platelet Volume 9.4 9.0-12.2 fL Immature Granulocyte % (Auto) 0 % Neutrophils (%) (Auto) 62 42-75 % Lymphocytes (%) (Auto) 26 12-44 % Monocytes (%) (Auto) 10 0-12 % Eosinophils (%) (Auto) 1 0-10 % Basophils (%) (Auto) 0 0-10 % Neutrophils # (Auto) 4.0 1.8-7.8 10^3/uL Lymphocytes # (Auto) 1.7 1.0-4.0 10^3/uL Monocytes # (Auto) 0.7 0.0-1.0 10^3/uL Eosinophils # (Auto) 0.1 0.0-0.3 10^3/uL Basophils # (Auto) 0.0 0.0-0.1 10^3/uL Immature Granulocyte # (Auto) 0.0 0.0-0.1 10^3/uL Prothrombin Time 13.5 12.2-14.7 SEC INR Comment 1.0 0.8-1.4 Activated Partial Thromboplast Time 27 24-35 SEC D-Dimer 0.34 0.00-0.49 UG/ML Sodium Level 141 135-145 MMOL/L Potassium Level 4.2 3.6-5.0 MMOL/L Chloride Level 106 98-107 MMOL/L Carbon Dioxide Level 25 21-32 MMOL/L Anion Gap 10 5-14 MMOL/L Blood Urea Nitrogen 16 7-18 MG/DL Creatinine 0.77 0.60-1.30 MG/DL Estimat Glomerular Filtration Rate 102 BUN/Creatinine Ratio 21 Glucose Level 107 H 70-105 MG/DL Calcium Level 9.2 8.5-10.1 MG/DL Corrected Calcium 9.0 8.5-10.1 MG/DL Magnesium Level 1.7 1.6-2.4 MG/DL Total Bilirubin 0.8 0.1-1.0 MG/DL Aspartate Amino Transf (AST/SGOT) 22 5-34 U/L Alanine Aminotransferase (ALT/SGPT) 14 0-55 U/L Alkaline Phosphatase 46 40-136 U/L Total Creatine Kinase 82 30-200 U/L Creatine Kinase MB 3.1 <6.6 NG/ML Myoglobin 40.8 10.0-92.0 NG/ML Troponin I < 0.028 <0.028 NG/ML B-Type Natriuretic Peptide 92.6 <100.0 PG/ML Total Protein 7.1 6.4-8.2 GM/DL Albumin 4.3 3.2-4.5 GM/DL Amylase Level 35 25-125 U/L Lipase 29 8-78 U/L Glucometer 103 70-110 MG/DL Physical Exam Physical Exam Vital Signs Vital Signs - First Documented 01/15/22 07:58 Temp 36.3 Pulse 98 Resp 16 B/P (MAP) 125/80 (95) Pulse Ox 100 O2 Delivery Room Air Capillary Refill : Less Than 3 Seconds Height, Weight, BMI Height: 5'4.00" Weight: 127lbs. 8.0oz. 57.776024pk; 24.00 BMI Method:Stated General Appearance: No Apparent Distress, WD/WN Eyes: Bilateral Eye Normal Inspection, Bilateral Eye PERRL, Bilateral Eye EOMI HEENT: PERRL/EOMI, TMs Normal, Normal ENT Inspection, Pharynx Normal, Moist Mucous Membranes Neck: Full Range of Motion, Normal Inspection, Non Tender, Supple; No Carotid Bruit, No JVD Respiratory: Chest Non Tender, Normal Breath Sounds, No Accessory Muscle Use, No Respiratory Distress Cardiovascular: Regular Rate, Rhythm, No JVD, No Murmur, Normal Peripheral Pulses Gastrointestinal: Normal Bowel Sounds, No Organomegaly, No Pulsatile Mass, Non Tender, Soft Back: Normal Inspection, No CVA Tenderness, No Vertebral Tenderness Extremity: Normal Capillary Refill, Normal Range of Motion, Non Tender, No Calf Tenderness, Pedal Edema (TRACE BILATERALLY) Neurologic/Psychiatric: Alert, Oriented x3, No Motor/Sensory Deficits, Normal Mood/Affect, band lining bander II-XII Norm as Tested Skin: Normal Color, Warm/Dry; No Rash Lymphatic: No Adenopathy A/P-Cardiology Admission Diagnosis Chest pain Coronary artery disease Hypertension Congestive heart failure, chronic compensated left ventricular systolic dysfunction, ischemic cardiomyopathy Assessment/Plan Chest pain, resembling angina, EKG baseline is abnormal. I am planning to evaluate stress test today. Continue to monitor cardiac enzymes. Coronary artery disease, History of acute myocardial infarction October 2016, underwent CABG [address] Ham using MIRANDA to LAD, vein graft to diagonal artery, vein graft to posterior marginal and vein graft to right PDA. Cardiac catheterization done December 2016 revealed patent bypass graft with small vessel disease otherwise. Continue on current medication. Planning to evaluate stress test. Hypotension, continue to monitor blood pressure Congestive heart failure, chronic left ventricular systolic dysfunction, ischemic in nature. Ejection fraction 30 to 35% by echo in July 2019, Repeat echo done August 2021 showing severe diffuse hypokinesis with EF 20- 25%. Maintained on Lisinopril and Coreg. I will increase Coreg to 6.25mg BID, reevalaute 2D Echo. If no improvement, will plan for ICD implantation. Offered patient LifeVest, refuses at this time. I will repeat 2D echo today History of nonsustained ventricular tachycardia, last hospital admission December 2016-maintained on beta hoa at this time. Continue to monitor. Hyperlipidemia. I will evaluate lipid profile and metabolic profile Diabetes mellitus, followed and managed by primary care physician Nonobstructive carotid artery stenosis, carotid duplex done July 2021. GILL PETIT MD January 15, 2022 09:49
[2022-01-15] MEDS ORDERED: NS IV 1000 ML 1,000 ML IV SCH ×2 (11:30→12:15)
[2022-01-15] MEDS ORDERED: diphenhydrAMINE 50 MG/ML INJ (BENADRYL) ONE (11:32)
[2022-01-15] MEDS ORDERED: NITRO DRIP 25000 MCG/D5W 0 ML IV ONE (11:33)
[2022-01-15] MEDS ORDERED: MIDAZOLAM 5 MG/5 ML (VERSED) VIAL ONE (11:33)
[2022-01-15] MEDS ORDERED: HEParin (CATH LAB) 1,000 ML IV ONE (11:33)
[2022-01-15] MEDS ORDERED: fentaNYL INJ 100 MCG/2 ML AMP ONE (11:33)
[2022-01-15] MEDS ORDERED: LIDOCAINE 1% INJ 20 ML VIAL ONE (11:33)
[2022-01-15] MEDS ORDERED: methylPREDNISolone 125 MG (Solu-MEDROL) VIAL ONE (11:33)
[2022-01-15] MEDS ORDERED: HEParin 1000 UNIT/ML (10ML VIAL) FOR BOLUS ONE (11:33)
[2022-01-15] MEDS ORDERED: NS IV 1000 ML 1,000 ML ONE (11:34)
--- NOTE | 2022-01-15 11:36 | Conscious Sedation/ASA ---
Conscious Sedation Pre-Proced Time 11:35 ASA Score 3 For ASA 3 and 4: Consider anesthesia and medical clearance. Also, for patients with a history of failed moderate sedation consider anesthesia. Airway Lungs Heart ASA score ASA 1: a normal healthy patient ASA 2: a patient with a mild systemic disease (mid diabetes, controlled hypertension, obesity x ASA 3: a patient with a severe systemic disease that limits activity (angina, COPD, prior Myocardial infarction) ASA 4: a patient with an incapacitating disease that is a constant threat to life (CHF, renal failure) ASA 5: a moribund patient not expected to survive 24 hrs. (ruptured aneurysm) ASA 6: a declared brain- patient whose organs are being harvested. For emergent operations, add the letter E after the classification Mallampati Classification Grade 3 Sedation Plan Analgesia, Amnesia, Plan communicated to team members, Discussed options with patient/fam, Discussed risks with patient/fam The patient is an appropriate candidate to undergo the planned procedure, sedation, and anesthesia. The patient immediately re-assessed prior to indication. GILL PETIT MD January 15, 2022 11:35
[2022-01-15] MEDS ORDERED: PATIENT MAY USE OWN MEDS, ALL PO SCH (12:15)
--- NOTE | 2022-01-15 12:17 | Cardiac Cath Report ---
Cardiac Cath Report Physician (s)/Stone Carriage Operator (s) Physician GILL PETIT MD Pre-Procedure Diagnosis Pre-Procedure Diagnosis: Chest pain Post-Procedure Note Procedure Start Date: January 15, 2022 Name of Procedure: Left heart catheterization Vein graft angiogram MIRANDA angiogram Findings/Procedure Note PROCEDURE NOTE: 61-year-old gentleman with coronary artery disease, admitted with chest pain, palpitation, diaphoresis. Underwent stress test today which showed fixed defect involving the whole anterior wall and apex with small area of judit-infarct ischemia. Severe cardiomyopathy with ejection fraction 20%. I decided to proceed with cardiac catheterization. After explaining the procedure to the patient, all pros and cons were explained, all questions were answered. The patient signed the consent and then he was placed on the cardiac catheterization laboratory. Groin was prepped SL fashion local anesthesia was used. Sheath placed in the artery. Aron right and left catheter were used to access the coronary system.Vein Graft evaluated. MIRANDA evaluated. Pigtail was used to access the left ventricular cavity. Left ventriculogram was not done, pressure was measured At the end of the procedure the sheath was removed. Closure device was used FINDINGS: Hemodynamics LV 97/8, end-diastolic pressure of 8 Aorta 96/54 mean of 72 ANATOMY: Left Main is free of obstructive disease Left Anterior Descending has severe disease, patent MIRANDA to LAD and vein graft to diagonal artery with good flow distally Left Circumflex has severe disease with patent vein graft to the obtuse marginal branch with excellent flow distally Right Coronary Artery has severe disease with patent vein graft to the right PDA with excellent flow distally MIRANDA evaluation showed patent MIRANDA to the mid LAD with excellent flow distally, small vessel disease. Vein Graft evaluation showed 3 vein grafts. Vein graft to the distal right coronary artery showing patent vein graft with excellent flow distally, small vessel disease distally. Vein graft to the diagonal artery is patent with good flow distally. Vein graft to the obtuse marginal branch, small artery, patent with good flow distally. LV Gram was not done, pressure was measured CONCLUSION: 1. Severe [place] coronary artery disease with patent MIRANDA to LAD vein graft to the diagonal artery vein graft to the obtuse marginal and vein graft to the right coronary artery with excellent flow distally, small vessel disease. 2. Normal left ventricular end-diastolic pressure, known to have ejection fraction 20%. DISCUSSION AND RECOMMENDATION: I will continue maximizing medical therapy, we will discuss with the patient regarding the possibility of ICD versus LifeVest. Patient has been refusing LifeVest, had episode of palpitation with chest pain and diaphoresis. I am concerned about ventricular tachycardia and sudden episode. Anesthesia Type: Conscious Sedation Estimated blood loss (mL): 15 ml Contrast Amount: 60 ml Total Radiation Dose: 389 mGy Post-Procedure Diagnosis Post-operative diagnosis: Chest pain Coronary artery disease Congestive heart failure, chronic compensated left ventricular systolic dysfunction, ischemic cardiomyopathy Hyperlipidemia GILL PETIT MD January 15, 2022 12:17
[2022-01-15] MEDS ORDERED: SITA1TAB2 PO (13:16)
[2022-01-15] MEDS ORDERED: LOSA25TA41 PO (13:16)
[2022-01-15] MEDS ORDERED: EMPA10TA PO (13:16)
--- NOTE | 2022-01-15 13:18 | Discharge Inst-Post CATH ---
Discharge Inst-CATH/EP Problems Reviewed?: Yes Post Cardiac Cath/EP D/C Inst Follow Up/Plan Hold metformin for [address] Perez's office on Thursday, January 20, 2022 <b>CARDIAC CATH/EP PROCEDURE DISCHARGE INSTRUCTIONS</b> ACTIVITY * Go Home directly and rest. * Limit activity of the leg (or wrist if it was used) for 7 days including aerobics, swimming, jogging, bicycling, etc. * Restrict stair-climbing for 7 days if possible, if not, climb up with your non-cath leg, then bring together on the same step. * Avoid lifting, pushing, pulling or excessive movement of the affected extremity for 7 days. * Customary sexual activity may be resumed after 2 days-use caution not to use a position that strains or causes pain to the affected extremity. * No driving for 24 hours. * NO SMOKING. * Avoid straining for bowel movements for 7 days. * Gentle walking on level ground is allowed. * Returning to work will depend on the type of procedure and the results. Your doctor will discuss this with you. CALL YOUR DOCTOR FOR ANY OF THE FOLLOWING: *If bleeding from the puncture site occurs- Apply gentle pressure to site with clean cloth and call your doctor or EMS. * If a knot or lump forms under the skin, increases in size, or causes pain. * If bruising appears to be worsening or moving further down your leg instead of disappearing. * Temperature above 101 F. CARE OF YOUR GROIN INCISION; * Bruising or purple discoloration of the skin near the puncture site is common. * You may shower only, no bathtub bathing for 5 days. Be careful to avoid sli pping as your leg may feel stiff. * If a closure device was used on your femoral artery, please see the attached guide regarding care of the device and your leg. * Leave dressing on FOR 24 hours. CARE OF YOUR WRIST INCISION; * Bruising or purple discoloration of the skin near the puncture site is common. * You may shower. * DO NOT submerge wrist. * Leave dressing on FOR 24 hours. GILL PEREZ MD January 15, 2022 13:18
--- NOTE | 2022-01-15 14:53 | Cardiology Stress Test Report ---
Stress Test Report Date of Procedure/Referring: Date of Procedure: January 15, 2022 PCP Gill Perez MD Admitting Physician [facility] Indications: CP Baseline Heart Rate: 90 Baseline Blood Pressure: Blood Pressure Systolic: 117 Blood Pressure Diastolic: 71 Vital Signs Date Time Temp Pulse Resp B/P (MAP) Pulse Ox O2 Delivery O2 Flow Rate FiO2 01/15/22 07:58 36.3 98 16 125/80 (95) 100 Room Air Baseline Vital Signs Vital Signs Date Time Temp Pulse Resp B/P (MAP) Pulse Ox O2 Delivery O2 Flow Rate FiO2 01/15/22 07:58 36.3 98 16 125/80 (95) 100 Room Air Baseline EKG: Baseline EKG: NSR Summary: After explaining the procedure and details to the patient, he signed the consent and was brought to the stress nuclear laboratory. Patient exercised on standard Anthony protocol, EKG, heart rate and blood pressure were monitored continuously, resting and stress doses of radio tracer were injected, imaging was acquired and reviewed in the short axis, horizontal long axis and vertical long axis views Patient was able to exercise for a total of 3 minutes on Anthony protocol, METs 4.6 Maximum heart rate 144 Maximum blood pressure 146/91 Stress EKG, Minimal nondiagnostic changes Recovery EKG, Return to baseline TID: 0.96 SSS: 31 SDS: 3 EF: 22 Conclusion: 1. Poor exercise tolerance for a total of 3 minutes on standard Anthony protocol, 4.6 METS achieving 90% of maximal expected heart rate 2. Appropriate heart rate and blood pressure response to exercise return to baseline during recovery 3. Nondiagnostic EKG changes with exercise return to baseline during recovery 4. Fixed defect involving the mid to apical anterior wall true apex and inferior wall with small area of judit-infarct ischemia 5. Prominent left ventricle with diffuse hypokinesia more pronounced at the apex and anterior apical and inferior apical segment with ejection fraction 22% GILL PEREZ MD January 15, 2022 14:53
== END 2022-01-15 17:00 | disposition home or self-care (01) ==
LOC: EDUNIT# 07:58 → ER 08:00 → CATH 11:32 → CSD 12:34 → CATH 17:00
PROVIDERS: ATTEND Internal Medicine Cardiovascular Disease
DX: I25.10 Atherosclerotic heart disease of native coronary artery without angina pectoris (principal); I50.22 Chronic systolic (congestive) heart failure; I25.5 Ischemic cardiomyopathy; E78.5 Hyperlipidemia, unspecified; E11.9 Type 2 diabetes mellitus without complications; I10 Essential (primary) hypertension; I65.29 Occlusion and stenosis of unspecified carotid artery; I95.9 Hypotension, unspecified; I47.2 Ventricular tachycardia; Z95.1 Presence of aortocoronary bypass graft; Z86.73 Personal history of transient ischemic attack (TIA), and cerebral infarction without residual deficits; Z79.899 Other long term (current) drug therapy; Z79.84 Long term (current) use of oral hypoglycemic drugs; Z79.4 Long term (current) use of insulin; Z79.82 Long term (current) use of aspirin
CPT/HCPCS: 71045; 78452; 80053; 82150; 82550; 82553; 82947; 83690; 83735; 83874; 83880; 84484; 85025; 85379; 85610; 85730; 93005; 93017; 93041; 93306; 93459; 99285; A9502; C1760; C1894; 36415